=== PATIENT | female | born 1965 | race Caucasian/White ===

== ENCOUNTER → 2016-02-28 | Outpatient (CLI) | payer OTHER ==
--- NOTE | 2016-02-28 08:16 | MR ---
EXAMINATION TYPE: MR shoulder RT wo con DATE OF EXAM: 02/28/2016 7:46 AM COMPARISON: 04 January 2016 plain film HISTORY: Rt. Shoulder pain, injury TECHNIQUE: Multiplanar, multisequence imaging of the right shoulder is performed without contrast. FINDINGS: Rotator Cuff: Abnormal increased signal is present within the rotator cuff without alyssa tear, findin gs compatible with tendinosis. Acromioclavicular Joint: Hypertrophic changes present causing mass effect on the musculotendinous julissa ction of supraspinatus, some fluid signal present in the subacromial subdeltoid bursa. There is a dis gabby acromial spur. Glenohumeral Joint: Intact. Labrum: The labrum appears grossly intact given limitation of non-arthrogram study. Biceps Tendon: The long head of biceps is in normal location within bicipital groove. Small amount of fluid present along the long head of biceps tendon. Bone marrow signal: No focal abnormal marrow signal is appreciated. Other: No additional significant abnormality is appreciated. IMPRESSION: Correlate for impingement. No alyssa rotator cuff tear is present. Findings compatible with tendinosis of the rotator cuff tendon.
== END | disposition home or self-care (01) ==
LOC: RADMRIMAIN 07:09
PROVIDERS: ATTEND Emergency Medicine
DX: S40.011D Contusion of right shoulder, subsequent encounter (principal)

== ENCOUNTER → 2016-06-21 | Outpatient (CLI) | payer MEDICAID ==
--- NOTE | 2016-06-22 23:33 | MR ---
EXAMINATION TYPE: MR wrist RT wo con DATE OF EXAM: 06/21/2016 4:27 PM COMPARISON: Outside radiographs 06/12/2016 HISTORY: 51-year-old female with right wrist pain, swelling x 2 weeks status post fall TECHNIQUE: Multiplanar, multisequence images of the right wrist were obtained without IV contrast. FINDINGS: No significant wrist joint effusion. No abnormal widening of the scapholunate interval. There is heterogeneous signal within the dorsal sc apholunate ligament suggesting sprain without tear. There is focal increased fluid signal involving the marrow of the proximal scaphoid pole but also at the distal pole at the scaphoid trapezial articulation. At the proximal pole, some portions show fair ly low T1-weighted signal intensity. No discrete fracture line is seen. Underlying degenerative change at the first CMC joint with subchondral cystic change. In addition, there is focal bone marrow edema involving the lateral radial metaphysis, again, without any focal fracture line. There is adjacent soft tissue swelling and suspected split tear of the abdu ctor pollicis longus at the level of the carpus with thin internal 7 x 5 mm ganglion cyst formation. The lunotriquetral ligament is intact. A focal 5 mm intraosseous ganglion incidentally noted within the fourth metacarpal head and also with in the first metacarpal neck. There is no evidence for bony erosions. There is a short segment split tear within the extensor carpi ulnaris as it just beyond the level of the ulnar styloid process best seen on series 501, image 5 and 6. Mild tenosynovial fluid is seen david ng the second extensor compartment. The flexor and extensor tendons otherwise appear within normal li mits. Median nerve is normal caliber. The triangular fibrocartilage remains intact. Distal radioulnar joint is intact. Negative ulnar varia nce as seen on outside radiographs. Mild diffuse soft tissue swelling at the wrist, again, greatest along the radial aspect. The visualized musculature appears within normal limits. IMPRESSION: 1. Prominent bone bruise lateral aspect of the radial metaphysis with moderate adjacent soft tissue c ontusion. 2. Suspect a concurrent injury to the overlying APL with a short segment split tear at the level of t he carpus and associated 7 mm intratendinous ganglion cyst formation. 3. Increased signal at the distal scaphoid pole probably reactive to underlying triscaphe joint osteo arthrosis. There is also focal edema at the proximal scaphoid pole. Given the degree of low T1 signal here, consider MRI and radiographic follow-up to exclude the possibility of developing AVN due to se odilon bone bruise. No discrete fracture line is seen. 4. Low-grade sprain versus chronic injury of the dorsal scapholunate ligament. No tear. 5. Longitudinal split of the ECU, mild osteoarthritic changes at the base of the thumb, and mild diff use soft tissue swelling.
== END | disposition home or self-care (01) ==
LOC: RADMRIMAIN 15:18
PROVIDERS: ATTEND Orthopaedic Surgery
DX: S60.211A Contusion of right wrist, initial encounter (principal); M19.031 Primary osteoarthritis, right wrist; M79.89 Other specified soft tissue disorders; Z97.8 Presence of other specified devices

== ENCOUNTER → 2016-07-04 | Outpatient (CLI) | payer MEDICAID ==
--- NOTE | 2016-07-04 22:29 | MR ---
EXAMINATION TYPE: MR janey/hollyine/loan wo con DATE OF EXAM: 07/04/2016 COMPARISON: 09/13/2009 HISTORY: Chronic neck and back pain x 4 years, recent fall June 2016 CONTRAST: Performed utilizing 0 mL intravenous MultiHance gadolinium contrast. TECHNIQUE: Multiplanar multiecho imaging on a 3.0 Jessica magnet is performed through the cervical spin e. FINDINGS: The craniovertebral junction is normal. Vertebral body alignment is normal. C7-T1: No focal disc herniation or significant disc bulge is evident. No spinal canal stenosis or n eural foraminal stenosis is present. C6-7: Mild disc bulge has mild anterior thecal sac compression. No AP spinal canal stenosis or cord c ontact is evident. Neural foramen are patent.. C5-6: Mild disc bulging is anterior thecal sac flattening. No cord contact is evident. No spinal herlinda l stenosis present. Mild foraminal narrowing from uncovertebral joint hypertrophy is present.. C4-5: No focal disc herniation or significant disc bulge is evident. No spinal canal stenosis or lucio ral foraminal stenosis is present. C3-4: Minimal central disc bulge has anterior thecal sac compression. No spinal canal stenosis cord c ontact or neural foraminal stenosis present.. C2-3: No focal disc herniation or significant disc bulge is evident. No spinal canal stenosis or lucio ral foraminal stenosis is present. No significant interval changes evident. IMPRESSIONS: 1. Mild disc bulge C6-7 without cord contact or spinal canal stenosis. EXAMINATION TYPE: MR toth/nubia/loan wo con DATE OF EXAM: 07/04/2016 COMPARISON: 09/13/2009 HISTORY: Chronic neck and back pain x 4 years, recent fall June 2016 CONTRAST: Performed utilizing 0 mL intravenous MultiHance gadolinium contrast. TECHNIQUE: Multiplanar, multiecho imaging on a 3.0 Jessica magnet is performed through the thoracic spi ne. There is a cord syrinx present. This begins at C3-4 and extends inferiorly to the cauda equina within the lumbar spine. Cord expansion is not identified. Note is made of right paracentral endplate spurring at C6-C7 with mild anterior thecal sac compressio n. Vertebral body alignment is normal. Vertebral body heights are preserved. Disc heights are preserved. Disc hydration levels are preserved. No spinal canal stenosis is evident. IMPRESSIONS: 1. Cord syrinx extending from C3-4 through the 2. This was present previously and appears similar to 2010 thoracic spinal cord into the upper lumbar spine region. EXAMINATION TYPE: MR cspine/tspine/lspine wo con DATE OF EXAM: 07/04/2016 COMPARISON: NONE HISTORY: Chronic neck and back pain x 4 years, recent fall June 2016 CONTRAST: 0 mL intravenous MultiHance. TECHNIQUE: Multiplanar, multisequence images of the lumbar spine were acquired. FINDINGS: L5-S1: Mild disc bulging is anterior thecal sac flattening. Facet hypertrophy is present. No spinal c anal stenosis or neural foraminal stenosis is present. L4-L5: No significant disc bulge or disc herniation. No spinal canal stenosis. No foraminal stenosi s. Disc desiccation is present.. L3-L4: No significant disc bulge or disc herniation. No spinal canal stenosis. No foraminal stenosi s. Disc desiccation is present.. L2-L3: No significant disc bulge or disc herniation. No spinal canal stenosis. No foraminal stenosi s. . L1-L2: No significant disc bulge or disc herniation. No spinal canal stenosis. No foraminal stenosi s. Neural foramen are patent.. T12-L1: No significant disc bulge or disc herniation. No spinal canal stenosis. No foraminal stenos is. Small amount of syrinx may be present at this level.. Tiny amount of syrinx may be at the cauda equina. This could be the distal lumbar ventricle. Series 0 07/06/2024. IMPRESSION: 1. Syrinx extends through the thoracic spine into the upper lumbar spine. 2. Disc desiccation without loss of disc height.
== END ==
LOC: RADMRIMAIN 19:40
PROVIDERS: ATTEND Orthopaedic Surgery Orthopaedic Surgery of the Spine
DX: M51.16 Intervertebral disc disorders with radiculopathy, lumbar region (principal); D33.4 Benign neoplasm of spinal cord; M50.123 Cervical disc disorder at C6-C7 level with radiculopathy
CPT/HCPCS: 72141; 72146; 72148

== ENCOUNTER → 2016-10-20 | Outpatient (CLI) | payer MEDICAID ==
[2016-10-20 14:46] LABS: Creatine Kinase 83 U/L (30-135)
[2016-10-20 15:36] LABS: Vitamin B12 860 pg/mL (239-931)
[2016-10-20 20:40] LABS: ANA w/Reflex to Titer NEGATIVE (NEGATIVE); RNP AB Interpretation NEGATIVE (NEGATIVE)
[2016-10-24 10:44] LABS: Lyme IgG/IgM 0.1 Index; Lyme IgG/IgM Interp NEGATIVE (NEGATIVE)
== END | disposition home or self-care (01) ==
LOC: LABWHC1 13:48
PROVIDERS: ATTEND Psychiatry & Neurology Neurology
DX: M79.1 Myalgia (principal); R51 Headache; M54.5 Low back pain; M25.50 Pain in unspecified joint
CPT/HCPCS: 36415; 82306; 82550; 82607; 85652; 86038; 86225; 86235; 86618

== ENCOUNTER → 2016-11-20 | Outpatient (CLI) | payer MEDICAID ==
[2016-11-14 17:25] VITALS: BMI 32.5
[2016-11-20 12:49] VITALS: BP 117/79; PULSE 53; RESP 16; TEMP 97.6
--- NOTE | 2016-11-20 12:52 | P.HPIM ---
History of Present Illness H&P Date: 11/20/16 Chief Complaint: low back and hip pain This is a 51-year-old patient referred by Dr. Ortiz for chronic pain in low back and hips with radiation to posterior thighs bilaterally. Patient has been taking medications from primary care physician including tramadol and Zanaflex medications with some relief. Patient denies adverse drug effects from medications. Patient also denies new-onset weakness, bowel/bladder incontinence , or any other signs or symptoms of cauda equina syndrome. There are no signs of acute intoxication, and no indications of medication diversion or overuse. Patient notes that pain worsens significantly with bending forward and sitting for long periods of time and improves with change in position and medication. Patient has used several types of medications for pain, including NSAIDS, OPIOIDS, TRAMADOL, ANTIDEPRESSANTS, and BENZODIAZEPINES. Patient HAS NOT had surgery. Patient HAS NOT had injections previously. Patient HAS had physical therapy and OMT recently with little relief. In addition to above, 13-point review of systems is also negative for chest pain , shortness of breath, changes in vision, changes in hearing, new onset weakness , abdominal pain, diarrhea, extreme fatigue, malaise, fever, skin changes, homicidal or suicidal ideation, or bowel or bladder incontinence. Vital Signs: Reviewed in EMR Gen: WDWN, AAOx3, NAD HEENT: NCAT, EOMI, hearing grossly normal Pulm: resp unlabored Abd: soft, NT, ND Neck: supple, trachea midline ROM in flexion lumbar spine: full ROM in extension lumbar spine: reduced Lumbar paravertebral tenderness: + Facet loading: + L > R side SI joint tenderness: + R > L side Bon's test: + bilateral, R > L Straight leg raise: neg Neuro: CN II-XII grossly intact, muscle strength lower extremities PRESERVED Past Medical History Past Medical History: Chest Pain / Angina, Eye Disorder, GERD/Reflux, Neurologic Disorder, Osteoarthritis (OA), Sleep Apnea/CPAP/BIPAP, Thyroid Disorder Additional Past Medical History / Comment(s): migraines, seasonal allergies, ALLERGY-induced asthma,RT EPI RETINAL MEMBRANE . Peptic ulcer disease with hemorrhage, HX H.Pylori, hiatal hernia, syringomyelia, microscopic hematuria, sleep apnea, chronic back pain, internal and external hemorrhoids History of Any Multi-Drug Resistant Organisms: None Reported Past Surgical History: Adenoidectomy, Bladder Surgery, Cholecystectomy, Heart Catheterization, Hysterectomy, Orthopedic Surgery, Tonsillectomy, Tubal Ligation Additional Past Surgical History / Comment(s): REPAIR BROKEN JAW 2 PLACES, SX TO RLE FOR DOG BITE,[place]arc procedure, Pubovaginal sling, UPPP for sleep APNEA , A & P repair, laparoscopic lysis of adhesion 2, left heart catheterization 2006, EGD/colonoscopy , ORIF lt foot, shoulder sx 02/26/15, Past Anesthesia/Blood Transfusion Reactions: Previous Problems w/ Anesthesia, Motion Sickness, Postoperative Nausea & Vomiting (PONV) Additional Past Anesthesia/Blood Transfusion Reaction / Comment(s): severe N/V with anesthesia-usually even with pre op measures Past Psychological History: Anxiety, Depression Smoking Status: Former smoker Past Alcohol Use History: None Reported Additional Past Alcohol Use History / Comment(s): STARTED SMOKING AT AGE 15 SMOKED UP TO 2 PPD THEN QUIT IN 1997. Past Drug Use History: None Reported - Past Family History Father Family Medical History: Cancer, Myocardial Infarction ([place]) Additional Family Medical History / Comment(s): AGE 78, KIDNEY CA Mother Family Medical History: Asthma, COPD, Eye Disorder, Fibromyalgia, GERD/Reflux Additional Family Medical History / Comment(s): AT AGE 1975- RESP FAILURE( PAST HEAVY SMOKER) Sister(s) Family Medical History: Hypertension Brother(s) Family Medical History: No Reported History Daughter(s) Family Medical History: No Reported History Son(s) Family Medical History: No Reported History Medications and Allergies Home Medications Medication Instructions Recorded Confirmed Type FLUoxetine HCL [PROzac] 80 mg PO HS 10/16/13 11/20/16 History Melatonin 30 mg PO HS 02/09/15 11/20/16 History Magnesium Gluconate [Magonate] 500 mg PO DAILY 01/04/16 11/20/16 History clonazePAM [KlonoPIN] 1 mg PO HS 01/04/16 11/20/16 History traMADol HCL [Ultram] 50 mg PO HS PRN 01/04/16 11/20/16 History Aspirin/Acetaminophen/Caffeine 2 tab PO DAILY PRN 11/14/16 11/20/16 History [Excedrin Migraine Caplet] Baclofen [Lioresal] 20 mg PO HS 11/14/16 11/20/16 History Butalb/APAP/Caff 50-325-40Mg 2 tab PO Q4H PRN 11/14/16 11/20/16 History [Fioricet 50-325-40] Cholecalciferol [Vitamin D3] 5,000 unit PO DAILY 11/14/16 11/20/16 History Fluticasone Propionate [Flovent 2 puff INHALATION BID PRN 11/14/16 11/20/16 History Hfa 110mcg] Levothyroxine Sodium 25 mcg PO QAM 11/14/16 11/20/16 History Naproxen Sodium [Aleve] 440 mg PO DAILY PRN 11/14/16 11/20/16 History tiZANidine [Zanaflex] 8 mg PO HS 11/14/16 11/20/16 History Allergies Allergy/AdvReac Type Severity Reaction Status Date / Time codeine Allergy Severe Nausea & Verified 11/20/16 12:27 Vomiting gluten Allergy Severe Nausea & Verified 11/20/16 12:27 Vomiting & Diarrhea hydrocodone bitartrate Allergy Severe Nausea & Verified 11/20/16 12:27 [From Mckenzie] Vomiting levofloxacin [From Levaquin] Allergy Severe Nausea & Verified 11/20/16 12:27 Vomiting hydromorphone HCl Allergy seizures Verified 11/20/16 12:27 [From Dilaudid] morphine Allergy Rash/Hives Verified 11/20/16 12:27 tree nut [Tree Nut] Allergy Dyspnea Verified 11/20/16 12:27 alcohol AdvReac MIGRAINES, Verified 11/20/16 12:27 N/V, SOB Results Comments: MRI cervical thoracic and lumbar spine demonstrates a multilevel syrinx from the C3-C4 level down to the cauda equina. There is a small disc herniation at the C6-C7 level with mild anterior thecal sac compression. There are some mild thoracic disc herniations. There is mild disc bulge with anterior thecal sac flattening at the L5-S1 level and facet hypertrophy at this level. Assessment and Plan (1) Syrinx of spinal cord Status: Chronic (2) SI (sacroiliac) joint dysfunction Status: Chronic (3) Chronic pain syndrome Status: Chronic Plan: 1. Explanation: Opioid and psychological risk scores were reviewed. Diagnoses , prognoses, and multiple treatment options including but not limited to physical therapy, interventional therapies, adjuvant medical therapies, narcotic medication therapies, and surgery were discussed with the patient and all questions were answered to the patient's satisfaction. 2. Opioid agreement: no opioids prescribed today 3. Counseling: The patient was counseled extensively on BODY MASS INDEX, EXERCISE. Specifically, the patient was instructed regarding the importance of weight control, and exercise in the context of both chronic pain and overall health. 4. Procedures: SIJ injection bilateral 5. Consultations: none 6. Investigations: none 7. Medications: none prescribed 8. Disposition: f/u for procedure as scheduled PQRS measures: 1-Patient's medications are documented in the chart. 2-Tobacco use is negative 3-Patient has not had a pneumococcal vaccine. 4-Advanced care planning discussed, patient unable to give. 5-Opioid contract NOT signed with the patient. 6-Pain positive, follow-up visit or procedure scheduled 7-Patient's blood pressure measured and documented, and WNL. 8-Patient's weight was measured, and body mass index ABOVE the normal limits, and counseling was done. Patient instructed to follow up with PCP. 9-Patient WAS NOT identified as an unhealthy alcohol user. Time with Patient: Greater than 30
== END | disposition home or self-care (01) ==
LOC: PNWHC3 12:04
PROVIDERS: ATTEND Anesthesiology
DX: M53.3 Sacrococcygeal disorders, not elsewhere classified (principal); G89.4 Chronic pain syndrome; K21.9 Gastro-esophageal reflux disease without esophagitis; M19.90 Unspecified osteoarthritis, unspecified site; Z88.5 Allergy status to narcotic agent; Z88.1 Allergy status to other antibiotic agents; Z91.018 Allergy to other foods; Z79.899 Other long term (current) drug therapy; Z87.891 Personal history of nicotine dependence
CPT/HCPCS: 99211

== ENCOUNTER 2016-11-21 06:17 | Day surgery (SDC) | payer MEDICAID ==
[2016-11-21 06:32] VITALS: TEMP 97.7
[2016-11-21] MEDS ORDERED: LACTATED RINGERS 1,000 ML IV ONE (06:44)
[2016-11-21] MEDS ORDERED: LIDOCAINE 1% 20 ML VIAL (10MG/ML) FOR IV START INTRADERMA ONE (06:45)
[2016-11-21] MEDS ORDERED: LACTATED RINGERS 1,000 ML IV SCH (07:15)
--- NOTE | 2016-11-21 07:32 | P.PCN ---
Date of Procedure: 11/21/16 Surgeon: Genaro Grider Pathology: none sent Condition: stable Disposition: PACU Description of Procedure: PREOPERATIVE DIAGNOSIS: 1-SIJ dysfunction 2 Lumbar DDD POSTOPERATIVE DIAGNOSIS:. same PROCEDURES: Bilateral Sacroiliac joint steroid injection with fluoroscopic guidance ANESTHESIA: Local with 1% lidocaine; conscious sedation EBL: Minimal. PROCEDURE INDICATIONS: This patient with a history of low back pain secondary to sacroiliitis, SIJ dysfunction, and lumbar DDD unresponsive to conservative management. No use of blood thinners. SIJ injection #1 today. PROCEDURE DESCRIPTION: The patient was seen and identified in the preoperative area. Risks, benefits, complications, and alternatives were discussed with the patient (including but not limited to incomplete pain relief, bleeding, infection, nerve damage, and allergies to medications), the patient agreed to proceed with the procedure and signed the consent after all questions were answered. Patient was taken to the OR and time out was completed to verify proper patient , position, laterality of pain, and allergies. Pt was placed in the prone position and a pillow was placed under the abdomen to reduce lumbar lordosis. The lumbosacral area was prepped and draped in the usual sterile fashion. Critical pause was taken. Vital signs were closely monitored during the procedure. The fluoroscopic camera was placed in contralateral oblique view and right sacroiliiac joint lower pole was identified. After local infiltration with 1% lidocaine 2 ml, Subsequently, a 22-gauge 3.5 inch spinal needle was introduced into the posteroinferior aspect of the right sacroiliac joint under direct fluoroscopic visualization. Subsequently, 3 ml of a solution of a total of 6 ml solution containing total 4 mL of 0.5% preservative-free bupivicaine mixed with 40 mg of Kenalog was injected after negative aspiration for CSF, blood, and air and negative for paresthesia. The entire procedure was repeated on the left side as above. Needle was withdrawn intact. Skin was cleansed, and bandages were applied. COMPLICATIONS: None. COMMENTS: DISPOSITION / PLANS: The patient was placed in a supine position and transferred to the recovery area in a stable condition for observation and was discharged from the recovery room after meeting discharge criteria. Home discharge instructions given to the patient by the staff. The patient was reexamined prior to discharge. The patient will schedule a repeat bilateral SIJ injection procedure in 2-4 weeks.
[2016-11-21 07:45] VITALS: RESP 20
[2016-11-21 08:07] VITALS: BP 114/65; PULSE 44
[2016-11-21] MEDS ORDERED: IV FLUID CONTINUATION 1,000 ML IV ONE (08:07)
--- NOTE | 2016-11-21 08:32 | FL ---
Fluoroscopy HISTORY: Pain 6 seconds fluoroscopy time supplied to the referring clinician. 4 intraoperative C-arm images docume nt the procedure. See dictated report from anesthesia.
== END 2016-11-21 08:17 | disposition home or self-care (01) ==
LOC: ORPAIN 06:17
PROVIDERS: ATTEND Anesthesiology
DX: G89.4 Chronic pain syndrome (principal); M53.3 Sacrococcygeal disorders, not elsewhere classified; M51.36 Other intervertebral disc degeneration, lumbar region; M46.1 Sacroiliitis, not elsewhere classified; K21.9 Gastro-esophageal reflux disease without esophagitis; M19.90 Unspecified osteoarthritis, unspecified site; G47.30 Sleep apnea, unspecified; E07.9 Disorder of thyroid, unspecified; G43.909 Migraine, unspecified, not intractable, without status migrainosus; F41.9 Anxiety disorder, unspecified; F32.9 Major depressive disorder, single episode, unspecified; Z87.891 Personal history of nicotine dependence; Z79.899 Other long term (current) drug therapy; Z88.1 Allergy status to other antibiotic agents; Z88.5 Allergy status to narcotic agent; Z91.018 Allergy to other foods
CPT/HCPCS: 27096; J2250; J3301; Q9965; J3010; 99152

== ENCOUNTER 2016-12-19 06:34 | Day surgery (SDC) | payer MEDICAID ==
[2016-12-14 12:12] VITALS: BMI 32.0
[~2016-12-19 06:34] MED LIST: LACTATED RINGERS 1,000 ML IV SCH
[2016-12-19 06:50] VITALS: TEMP 98
[2016-12-19] MEDS ORDERED: ONDANSETRON 4 MG/2 ML VIAL IVP ONE (06:51)
--- NOTE | 2016-12-19 07:25 | P.PCN ---
Date of Procedure: 12/19/16 Procedure(s) Performed: Preoperative diagnoses= 1-lumbar degenerative disc disease 2-bilateral sacroiliac joint dysfunction. 3-lumbar facet arthropathy Postoperative diagnoses= same as preoperative diagnosis. Procedure= bilateral sacroiliac joint steroid injection under fluoroscopic guidance. Anesthesia= conscious sedation with Versed 2 mg and fentanyl 100 micrograms and local infiltration with lidocaine 1% 4 ml Estimated blood loss=minimal. Procedure indication= the patient had a history of severe chronic low back pain , diagnosed with sacroiliac joint dysfunction ,and lumbar sacral facet arthropathy ,unresponsive to conservative treatment. Procedure description= the patient was seen and identified in the preoperative holding area, risks and benefits and alternative of the procedure and possible complications discussed with the patient, and he agreed with the preceding, patient signed the consent, an IV was started, and vital signs were monitored and were stable throughout the procedure, patient was placed in the prone position or table and the lumbosacral area was prepped and draped with a sterile fashion, vital signs were closely monitored during the procedure, the fluoroscopy camera was placed in the contralateral oblique view on the right sacroiliac joint and the lower part of the joint was identified, local infiltration of the skin and subcutaneous tissue with lidocaine 1% 2 mL then a 22-gauge Quincke-type spinal needle advanced slowly under fluoroscopy and placed in the posterior and inferior border of the right sacroiliac joint, placement confirmed with AP and lateral view, and after appropriate needle placement confirmed and after negative aspiration for heme and CSF and there was no paresthesia during the injection, 3 ml of Marcaine 0.5% and 40 mg of Kenalog injected after negative aspiration, the needle removed, and the entire same procedure was repeated for the left sacroiliac joint Patient tolerated the procedure well without any complication, The patient returned to supine position after the back was cleaned and a Band- Aid applied, the patient transported to recovery room in stable condition and he was monitored for 30 minutes before he was discharged home and then patient was reexamined before going home and patient was discharged in stable condition and patient will follow up with the pain clinic in a few weeks
[2016-12-19 07:58] VITALS: BP 120/72; PULSE 43; RESP 20
[2016-12-19] MEDS ORDERED: IV FLUID CONTINUATION 1,000 ML IV ONE (08:01)
--- NOTE | 2016-12-19 08:20 | FL ---
Fluoroscopy HISTORY: Pain 3 seconds fluoroscopy time supplied to the referring clinician. 2 intraoperative C-arm images docume nt the procedure. See dictated report from anesthesia.
== END 2016-12-19 08:06 | disposition home or self-care (01) ==
LOC: ORPAIN 06:34
DX: G89.29 Other chronic pain (principal); M51.36 Other intervertebral disc degeneration, lumbar region; M53.3 Sacrococcygeal disorders, not elsewhere classified; M46.96 Unspecified inflammatory spondylopathy, lumbar region; M46.1 Sacroiliitis, not elsewhere classified; K21.9 Gastro-esophageal reflux disease without esophagitis; Z88.8 Allergy status to other drugs, medicaments and biological substances; Z88.5 Allergy status to narcotic agent; Z91.018 Allergy to other foods; Z79.2 Long term (current) use of antibiotics; Z79.899 Other long term (current) drug therapy
CPT/HCPCS: 27096; J2250; J3301; J2405; J3010; 99152

== ENCOUNTER 2017-02-20 07:30 | Day surgery (SDC) | payer MEDICAID ==
[2017-02-13 12:38] VITALS: BMI 32.1
[2017-02-20] MEDS ORDERED: LIDOCAINE 1% 20 ML VIAL (10MG/ML) FOR IV START INTRADERMA ONE (07:33)
[2017-02-20 07:39] VITALS: RESP 16; TEMP 97.7
[2017-02-20] MEDS ORDERED: LACTATED RINGERS 1,000 ML IV ONE (07:42)
[2017-02-20] MEDS ORDERED: ONDANSETRON 4 MG/2 ML VIAL IVP ONE (08:08)
[2017-02-20] MEDS ORDERED: ONDANSETRON 4 MG/2 ML VIAL IVP STA (08:14)
[2017-02-20] MEDS ORDERED: LACTATED RINGERS 1,000 ML IV SCH (08:15)
[2017-02-20] MEDS ORDERED: KETOROLAC 30 MG/ML 1 ML VIAL IVP STA (08:40)
--- NOTE | 2017-02-20 08:44 | P.PCN ---
Date of Procedure: 02/20/17 Surgeon: Genaro Grider Pathology: none sent Condition: stable Disposition: PACU Description of Procedure: PREOPERATIVE DIAGNOSIS: Sacroiliitis; lumbar spondylosis without myelopathy POSTOPERATIVE DIAGNOSIS: Sacroiliitis; lumbar spondylosis without myelopathy PROCEDURE: Radiofrequency thermocoagulation/ablation of the Medial branch of L5 and S1, S2, S3 lateral branch levels under fluoroscopic guidance, left ANESTHESIA: Local with 1% lidocaine; IV sedation with Versed/fentanyl EBL: Minimal PROCEDURE INDICATION: The patient with low back pain secondary to sacroilitis with marked decrease in pain with prior sacroiliac joint injections, presents for L SI RFA today. No use of blood thinners. PROCEDURE DESCRIPTION: The patient was seen and identified in the preoperative area. Risks, benefits, complications, and alternatives were discussed with the patient, with risks including but not limited to bleeding, infection, nerve damage, incomplete pain relief, and allergic reactions to medications. The patient agreed to proceed with the procedure and signed the informed consent after all questions were answered. IV was started. Vital signs were stable throughout the procedure. Patient was taken to the OR and time out was completed.The patient was placed in the prone position on procedure table and a pillow was placed under the abdomen to reduce lumbar lordosis. The lumbosacral area was prepped and draped in the usual sterile fashion. Critical pause was taken. Vital signs were closely monitored during the procedure. L5 Medial Branch: Using left oblique fluoroscopy, the junction of the transverse process and the superior articular process of the top of the sacrum on the right side, which correspond to the fluoroscopic image of the "eye of the Elvis dog" was identified. Skin and deeper tissues were localized with 1% lidocaine at the identified level. Then using fluoroscopy, a 10-cm 20-gauge radiofrequency cannula with a 10-mm active tip was was advanced under fluoroscopic guidance until contact was made with periosteum. At this level, the Sensory testing of L5 Medial branch was performed at 50 Hz and 0 to 1 volt with production of concordant pain. Motor stimulation was done at 2 Hz with stimulation of multifidus muscle contraction at (0.1-2.5) volts. No radicular symptoms or paresthesias were produced during the testing. Subsequently, the L5 medial branch was subjected to a radiofrequency ablation at a mode of 90 seconds at 80 degrees Celsius after negative motor and sensory testing as indicated and after injecting 0.5 ml of preservative free Lidocaine 1%. Then after the radiofrequency procedure was done, 1 mL of a solution containing 4 mL of 0.5% preservative-free lidocaine mixed with 40 mg of Kenalog. S1, S2, and S3 Medial branches: Using the oblique position, the left sacroiliac joint was identified. Skin and deeper tissues corresponding to the site were anesthetized with 1% lidocaine. Under fluoroscopic guidance, a total of three 10-cm 18-gauge radiofrequency cannula with 10-mm active tips were advanced to the lateral aspects of the S1, S2, and S3 vertebral foramina. Subsequently, sensory and motor testings were performed at a total of 3 segments at 50 Hz and 2 Hz respectively which produced concordant pain without radiculopathy or paresthesia. Then each segment was subjected to radiofrequency ablation at a mode of 90 seconds at 80 degrees Celsius for a total of 3 lesions with the bipolar technique. Then after the radiofrequency procedure was done, each site was injected with 1 mL of the aforementioned solution containing 4 mL of 0.5% preservative-free lidocaine mixed with 40 mg of Kenalog. The needles were withdrawn. Area was cleaned. Band-Aid was applied. COMPLICATIONS: None. COMMENTS: DISPOSITION / PLANS: The patient was placed in a supine position and transferred to the recovery area in a stable condition for observation and was discharged from the recovery room after meeting discharge criteria. Home discharge instructions given to the patient by the staff. The patient was reexamined prior to discharge. The patient will schedule a right SI RFA in 4-6 weeks.
[2017-02-20] MEDS ORDERED: IV FLUID CONTINUATION 1,000 ML IV ONE (08:49)
[2017-02-20 09:16] VITALS: BP 119/70; PULSE 51
--- NOTE | 2017-02-20 12:58 | FL ---
Fluoroscopy HISTORY: Pain 18 seconds fluoroscopy time supplied to the referring clinician. 2 intraoperative C-arm images docum ent the procedure. See dictated report from anesthesia.
== END 2017-02-20 09:38 | disposition home or self-care (01) ==
LOC: ORPAIN 07:30
PROVIDERS: ATTEND Anesthesiology
DX: M46.1 Sacroiliitis, not elsewhere classified (principal); M47.816 Spondylosis without myelopathy or radiculopathy, lumbar region; Z88.6 Allergy status to analgesic agent; Z91.02 Food additives allergy status; Z88.5 Allergy status to narcotic agent; Z91.018 Allergy to other foods; Z91.09 Other allergy status, other than to drugs and biological substances
CPT/HCPCS: 64640 ×3; 64635; J2250; J3301; J2405; J3010; 99152

== ENCOUNTER → 2017-03-01 | Outpatient (CLI) | payer MEDICAID ==
[2017-03-01 08:58] LABS: ALT 22 U/L (9-52); AST 15 U/L (14-36); Albumin 4.1 g/dL (3.5-5.0); Alkaline Phosphatase 72 U/L (38-126); Anion Gap 9 mmol/L; Blood Urea Nitrogen 20 mg/dL (7-17); Calcium 9.8 mg/dL (8.4-10.2); Carbon Dioxide 25 mmol/L (22-30); Chloride 107 mmol/L (98-107); Cholesterol 207 mg/dL (<200); Glucose 85 mg/dL (74-99); HDL Cholesterol 91 mg/dL (40-60); LDL Cholesterol,Calculated 105 mg/dL (0-99); Potassium 4.7 mmol/L (3.5-5.1); Sodium 141 mmol/L (137-145); Total Bilirubin 0.4 mg/dL (0.2-1.3); Total Protein 6.5 g/dL (6.3-8.2); Triglycerides 53 mg/dL (<150)
[2017-03-01 09:12] LABS: Basophils % (A) 0 %; Eosinophils # (A) 0.1 k/uL (0-0.7); Eosinophils % (A) 1 %; HCT 43.7 % (34.0-46.0); HGB 14.3 gm/dL (11.4-16.0); Lymphocytes # (A) 1.5 k/uL (1.0-4.8); Lymphocytes % (A) 22 %; MCH 27.6 pg (25.0-35.0); MCHC 32.8 g/dL (31.0-37.0); MCV 84.3 fL (80.0-100.0); Mean Platelet Volume 6.4; Monocytes # (A) 0.4 k/uL (0-1.0); Monocytes % (A) 7 %; Neutrophils # (A) 4.6 k/uL (1.3-7.7); Neutrophils % (A) 68 %; Platelet Count 316 k/uL (150-450); RBC 5.18 m/uL (3.80-5.40); RDW 13.4 % (11.5-15.5); WBC 6.7 k/uL (3.8-10.6)
[2017-03-01 09:13] LABS: T4, Free (Free Thyroxine) 1.16 ng/dL (0.78-2.19)
== END | disposition home or self-care (01) ==
LOC: LABWHC1 07:59
PROVIDERS: ATTEND Family Medicine
DX: R07.89 Other chest pain (principal); E03.9 Hypothyroidism, unspecified
CPT/HCPCS: 36415; 80053; 80061; 83735; 84439; 84443; 85025

== ENCOUNTER → 2017-03-08 | Outpatient (CLI) | payer MEDICAID ==
[~2017-03-08] MED LIST changes: -LACTATED RINGERS 1,000 ML IV SCH; +REGADENOSON 0.4 MG/5 ML SYRINGE IV ONE
--- NOTE | 2017-03-08 10:40 | EST ---
EXERCISE STRESS DATE OF SERVICE: 03/08/2017 AGE: 51 SEX: Female HT: 5'1" WT: 168 pounds PROTOCOL: Lexiscan Cardiolite STAGE: DURATION OF EXERCISE: HEART RATE REST: 53 BLOOD PRESSURE REST: 104/73 MAXIMUM HEART RATE ACHIEVED: 89 MAXIMUM BLOOD PRESSURE: 130/72 85% MPHR: 144 100% MPHR: 169 METS: INDICATION OF THE STUDY: Chest pain. CLINICAL INFORMATION: STRESS DATA: Pretesting physical examination showed a heart rate of 53, pressure is 104/73 mmHg. Baseline EKG showed sinus rhythm. A 0.4 mg of Lexiscan was given to the patient over 15 seconds per protocol. The max heart rate was 89 beats per minute and maximum pressure was 130/72 mmHg. Clinically the patient did not have any symptoms of chest pain, but she did develop shortness of breath. The EKG did not show any significant ST or T-wave abnormalities consistent with ischemia. CONCLUSION: 1. Nondiagnostic electrocardiogram stress testing in response to Lexiscan. 2. Please follow up on the Cardiolite portion on separate report from the radiology department. MMODL / IJN: [id number] /
--- NOTE | 2017-03-08 12:12 | NM ---
EXAMINATION TYPE: NM stress lexiscan cardiolite DATE OF EXAM: 03/08/2017 COMPARISON: NONE HISTORY: Atypical chest pain, R07.89 TECHNIQUE: After the intravenous administration of 10.7 mCi Tc 99m Sestamibi - Cardiolite resting SP ECT images acquired 45 minutes post injection. The patient received 0.4mg Lexiscan, 27.3 mCi Tc 99m Sestamibi - Stress images obtained [address] injection FINDINGS: Gut activity is noted on the exam. Review of stress and rest SPECT images demonstrates suggestion of some mild decreased radiopharmaceut ical uptake on stress as compared to rest images along the anterior wall of the left ventricle extend ing towards the apex. Gated analysis shows normal wall motion with an estimated left ventricular eje ction fraction of 69 %. IMPRESSION: Elevated cardiac ejection fraction. Consider echocardiographic correlation. Difficult to exclude phar macologically induced left ventricular myocardial ischemia as described. A Yellow message has been communicated to Jean Monsivais via the [employer] Critical Result system on 03/08/2017 12:09 PM, Message ID [id number].
== END | disposition home or self-care (01) ==
LOC: RADNMMAIN 08:16
PROVIDERS: ATTEND Family Medicine
DX: R07.89 Other chest pain (principal)
CPT/HCPCS: 93017; 78452; A9500; J2785

== ENCOUNTER 2017-03-13 12:20 | Observation (INO) | payer MEDICAID ==
[2017-03-13] MEDS ORDERED: ASPIRIN 81 MG PO STA (12:51)
[2017-03-13] MEDS ORDERED: NITROGLYCERIN SL TABS 0.4 MG TAB SUBLINGUAL STA ×3 (12:51)
--- NOTE | 2017-03-13 12:55 | ED ---
General Adult HPI - General Chief complaint: Chest Pain Stated complaint: SOB, Tightness in Chest Time Seen by Provider: 03/13/17 12:46 Source: patient, RN notes reviewed Mode of arrival: wheelchair Limitations: no limitations - History of Present Illness Initial comments: Patient is a pleasant 81-year-old female presenting to the emergency Department with chest discomfort. Patient has had symptoms frequently over the past month. Patient did have a outpatient stress test done last week reported as abnormal. Patient has an appointment to see cardiology today. Patient states discomfort has worsened today. Discomfort is somewhat improved at this time and is rated 4-5/10. Discomfort feels like tightness underneath the left breast. There is some radiation towards the shoulder. Patient does have associated dyspnea. Symptoms are exertional. No associated nausea. Patient was a little bit sweaty yesterday. No leg pain or leg swelling. No fever. - Related Data Home Medications Medication Instructions Recorded Confirmed FLUoxetine HCL [PROzac] 80 mg PO HS 10/16/13 03/13/17 Melatonin 30 mg PO HS 02/09/15 03/13/17 Magnesium Gluconate [Magonate] 500 mg PO HS 01/04/16 03/13/17 clonazePAM [KlonoPIN] 1 mg PO HS 01/04/16 03/13/17 traMADol HCL [Ultram] 50 mg PO HS PRN 01/04/16 03/13/17 Aspirin/Acetaminophen/Caffeine 2 tab PO DAILY PRN 11/14/16 03/13/17 [Excedrin Migraine Caplet] Baclofen [Lioresal] 20 mg PO HS 11/14/16 03/13/17 Butalb/APAP/Caff 50-325-40Mg 2 tab PO Q4H PRN 11/14/16 03/13/17 [Fioricet 50-325-40] Cholecalciferol [Vitamin D3] 5,000 unit PO HS 11/14/16 03/13/17 Fluticasone Propionate [Flovent 2 puff INHALATION RT-BID PRN 11/14/16 03/13/17 Hfa 110mcg] Levothyroxine Sodium 25 mcg PO QAM 11/14/16 03/13/17 Naproxen Sodium [Aleve] 440 mg PO DAILY PRN 11/14/16 03/13/17 tiZANidine [Zanaflex] 8 mg PO HS 11/14/16 03/13/17 Zaleplon [Zaleplon] 10 mg PO HS 02/13/17 03/13/17 Aspirin 81 mg PO DAILY 03/13/17 03/13/17 Allergies Allergy/AdvReac Type Severity Reaction Status Date / Time codeine Allergy Severe Nausea & Verified 03/13/17 13:00 Vomiting hydrocodone bitartrate Allergy Severe Nausea & Verified 03/13/17 13:00 [From [place]] Vomiting levofloxacin [From Levaquin] Allergy Severe Nausea & Verified 03/13/17 13:00 Vomiting hydromorphone HCl Allergy seizures Verified 03/13/17 13:00 [From Dilaudid] morphine Allergy Rash/Hives Verified 03/13/17 13:00 alcohol AdvReac MIGRAINES, Verified 03/13/17 13:00 N/V, SOB ibuprofen [From Motrin] AdvReac ABD PAIN, Verified 03/13/17 13:00 ELEVATED LIVER ENZYMES Review of Systems ROS Statement: Those systems with pertinent positive or pertinent negative responses have been documented in the HPI. ROS Other: All systems not noted in ROS Statement are negative. Constitutional: Denies: fever Eyes: Denies: eye pain ENT: Denies: ear pain Respiratory: Reports: dyspnea. Denies: cough Cardiovascular: Reports: chest pain Endocrine: Denies: heat or cold intolerance Gastrointestinal: Denies: abdominal pain Genitourinary: Denies: dysuria Musculoskeletal: Denies: back pain Skin: Denies: rash Neurological: Denies: weakness Past Medical History Past Medical History: Eye Disorder, GERD/Reflux, Neurologic Disorder, Osteoarthritis (OA), Sleep Apnea/CPAP/BIPAP, Thyroid Disorder Additional Past Medical History / Comment(s): migraines, seasonal allergies, ALLERGY-induced asthma,RT EPI RETINAL MEMBRANE . Peptic ulcer disease with hemorrhage, HX H.Pylori, hiatal hernia, syringomyelia, sleep apnea, chronic back pain, hemorrhoids History of Any Multi-Drug Resistant Organisms: None Reported Past Surgical History: Adenoidectomy, Bladder Surgery, Cholecystectomy, Heart Catheterization, Hysterectomy, Orthopedic Surgery, Tonsillectomy, Tubal Ligation Additional Past Surgical History / Comment(s): Monarc procedure, Pubovaginal sling, UPPP for sleep apnea , A & P repair, laparoscopic lysis of adhesion 2, left heart catheterization 2006, EGD/colonoscopy last one 02/12/15, ORIF lt foot, lt shoulder sx 02/26/15, pain clinic injections, RSA lower back Past Anesthesia/Blood Transfusion Reactions: Previous Problems w/ Anesthesia, Motion Sickness, Postoperative Nausea & Vomiting (PONV) Additional Past Anesthesia/Blood Transfusion Reaction / Comment(s): severe N/V with anesthesia-usually even with pre op measures Past Psychological History: Anxiety, Depression Smoking Status: Former smoker Past Alcohol Use History: None Reported Past Drug Use History: None Reported - Past Family History Father Family Medical History: Cancer, Myocardial Infarction ([place]) Additional Family Medical History / Comment(s): AGE 78, KIDNEY CA Mother Family Medical History: Asthma, COPD, Eye Disorder, Fibromyalgia, GERD/Reflux Additional Family Medical History / Comment(s): AT AGE 1975- RESP FAILURE( PAST HEAVY SMOKER) Sister(s) Family Medical History: Hypertension Brother(s) Family Medical History: No Reported History Daughter(s) Family Medical History: Cancer Additional Family Medical History / Comment(s): cervical Son(s) Family Medical History: No Reported History General Exam Limitations: no limitations General appearance: alert, in no apparent distress Head exam: Present: atraumatic Eye exam: Present: normal appearance, PERRL ENT exam: Present: normal oropharynx Neck exam: Present: normal inspection Respiratory exam: Present: normal lung sounds bilaterally. Absent: chest wall tenderness Cardiovascular Exam: Present: regular rate, normal rhythm Expanded Peripheral pulses: 2+: Radial (R), Radial (L), Dorsalis Pedis (R), Dorsalis Pedis (L) GI/Abdominal exam: Present: soft. Absent: tenderness Extremities exam: Present: normal inspection. Absent: pedal edema, calf tenderness Neurological exam: Present: alert Psychiatric exam: Present: normal affect, normal mood Skin exam: Present: normal color Course Vital Signs 03/13/17 03/13/17 03/13/17 12:21 13:20 13:30 Temperature 96.7 F L Pulse Rate 57 L Respiratory 18 18 Rate Blood Pressure 135/76 124/64 124/80 O2 Sat by Pulse 100 Oximetry EKG Findings - EKG Comments: EKG Findings:: Sinus bradycardia 53. CA 158. QRS 74. QT 432. QTC 405. Normal axis. Normal QRS. Nonspecific ST-T. Medical Decision Making - Medical Decision Making Patient reevaluated and resting comfortably in bed. Patient is updated on results and plan. Case was discussed in detail with Dr. Gonsales, who will admit for Dr. Soto. - Lab Data Result diagrams: 03/13/17 12:52 03/13/17 12:52 Lab Results 03/13/17 03/13/17 03/13/17 Range/Units 12:52 12:52 12:52 WBC 6.2 (3.8-10.6) k/uL RBC 5.05 (3.80-5.40) m/uL Hgb 14.4 (11.4-16.0) gm/dL Hct 43.6 (34.0-46.0) % MCV 86.3 (80.0-100.0) fL MCH 28.6 (25.0-35.0) pg MCHC 33.1 (31.0-37.0) g/dL RDW 13.5 (11.5-15.5) % Plt Count 264 (150-450) k/uL Neutrophils % 66 % Lymphocytes % 24 % Monocytes % 7 % Eosinophils % 1 % Basophils % 0 % Neutrophils # 4.1 (1.3-7.7) k/uL Lymphocytes # 1.5 (1.0-4.8) k/uL Monocytes # 0.4 (0-1.0) k/uL Eosinophils # 0.1 (0-0.7) k/uL Basophils # 0.0 (0-0.2) k/uL PT (9.0-12.0) sec INR (<1.2) APTT (22.0-30.0) sec D-Dimer (<0.60) mg/L FEU Sodium 141 (137-145) mmol/L Potassium 5.2 H (3.5-5.1) mmol/L Chloride 106 (98-107) mmol/L Carbon Dioxide 26 (22-30) mmol/L Anion Gap 9 mmol/L BUN 15 (7-17) mg/dL Creatinine 1.02 (0.52-1.04) mg/dL Est GFR (MDRD) Af Amer >60 (>60 ml/min/1.73 sqM) Est GFR (MDRD) Non-Af 57 (>60 ml/min/1.73 sqM) Glucose 80 (74-99) mg/dL Calcium 10.0 (8.4-10.2) mg/dL Magnesium 1.8 (1.6-2.3) mg/dL Total Bilirubin 0.4 (0.2-1.3) mg/dL AST 18 (14-36) U/L ALT 23 (9-52) U/L Alkaline Phosphatase 73 (38-126) U/L Total Creatine Kinase 44 (30-135) U/L CK-MB (CK-2) 0.4 (0.0-2.4) ng/mL CK-MB (CK-2) Rel Index 0.9 Troponin I <0.012 (0.000-0.034) ng/mL NT-Pro-B Natriuret Pep pg/mL Total Protein 6.8 (6.3-8.2) g/dL Albumin 4.4 (3.5-5.0) g/dL 03/13/17 03/13/17 Range/Units 12:52 12:52 WBC (3.8-10.6) k/uL RBC (3.80-5.40) m/uL Hgb (11.4-16.0) gm/dL Hct (34.0-46.0) % MCV (80.0-100.0) fL MCH (25.0-35.0) pg MCHC (31.0-37.0) g/dL RDW (11.5-15.5) % Plt Count (150-450) k/uL Neutrophils % % Lymphocytes % % Monocytes % % Eosinophils % % Basophils % % Neutrophils # (1.3-7.7) k/uL Lymphocytes # (1.0-4.8) k/uL Monocytes # (0-1.0) k/uL Eosinophils # (0-0.7) k/uL Basophils # (0-0.2) k/uL PT 9.8 (9.0-12.0) sec INR 1.0 (<1.2) APTT 24.1 (22.0-30.0) sec D-Dimer 0.21 (<0.60) mg/L FEU Sodium (137-145) mmol/L Potassium (3.5-5.1) mmol/L Chloride (98-107) mmol/L Carbon Dioxide (22-30) mmol/L Anion Gap mmol/L BUN (7-17) mg/dL Creatinine (0.52-1.04) mg/dL Est GFR (MDRD) Af Amer (>60 ml/min/1.73 sqM) Est GFR (MDRD) Non-Af (>60 ml/min/1.73 sqM) Glucose (74-99) mg/dL Calcium (8.4-10.2) mg/dL Magnesium (1.6-2.3) mg/dL Total Bilirubin (0.2-1.3) mg/dL AST (14-36) U/L ALT (9-52) U/L Alkaline Phosphatase (38-126) U/L Total Creatine Kinase (30-135) U/L CK-MB (CK-2) (0.0-2.4) ng/mL CK-MB (CK-2) Rel Index Troponin I (0.000-0.034) ng/mL NT-Pro-B Natriuret Pep 88 pg/mL Total Protein (6.3-8.2) g/dL Albumin (3.5-5.0) g/dL - Radiology Data Radiology results: report reviewed (Chest x-ray reported as no acute process. Films are unable to be viewed at this time secondary to computer system being down.) Critical Care Time Critical Care Time: Yes Total Critical Care Time: 31 Disposition Clinical Impression: Unstable angina pectoris Disposition: ADMITTED IP TO THIS [facility] Referrals: Caryl Soto MD [Primary Care Provider] - 1-2 days Decision Time: 14:23
[2017-03-13 13:11] LABS: Basophils % (A) 0 %; Eosinophils # (A) 0.1 k/uL (0-0.7); Eosinophils % (A) 1 %; HCT 43.6 % (34.0-46.0); HGB 14.4 gm/dL (11.4-16.0); Lymphocytes # (A) 1.5 k/uL (1.0-4.8); Lymphocytes % (A) 24 %; MCH 28.6 pg (25.0-35.0); MCHC 33.1 g/dL (31.0-37.0); MCV 86.3 fL (80.0-100.0); Mean Platelet Volume 6.1; Monocytes # (A) 0.4 k/uL (0-1.0); Monocytes % (A) 7 %; Neutrophils # (A) 4.1 k/uL (1.3-7.7); Neutrophils % (A) 66 %; Platelet Count 264 k/uL (150-450); RBC 5.05 m/uL (3.80-5.40); RDW 13.5 % (11.5-15.5); WBC 6.2 k/uL (3.8-10.6)
[2017-03-13 13:22] LABS: ALT 23 U/L (9-52); AST 18 U/L (14-36); Albumin 4.4 g/dL (3.5-5.0); Alkaline Phosphatase 73 U/L (38-126); Anion Gap 9 mmol/L; Blood Urea Nitrogen 15 mg/dL (7-17); Carbon Dioxide 26 mmol/L (22-30); Chloride 106 mmol/L (98-107); Glucose 80 mg/dL (74-99); Magnesium 1.8 mg/dL (1.6-2.3); Potassium 5.2 mmol/L (3.5-5.1); Sodium 141 mmol/L (137-145); Total Bilirubin 0.4 mg/dL (0.2-1.3); Total Protein 6.8 g/dL (6.3-8.2)
[2017-03-13 13:33] LABS: Creatine Kinase 44 U/L (30-135)
[2017-03-13 13:45] LABS: Creatine Kinase MB 0.4 ng/mL (0.0-2.4); Troponin I <0.012 ng/mL (0.000-0.034)
[2017-03-13] MEDS ORDERED: ACETAMINOPHEN TAB 325 MG TAB PO STA (13:46)
[2017-03-13 13:48] LABS: D-Dimer 0.21 mg/L FEU (<0.60); Partial Thromboplastin Time 24.1 sec (22.0-30.0); Prothrombin Time 9.8 sec (9.0-12.0)
--- NOTE | 2017-03-13 14:04 | XR ---
EXAMINATION TYPE: XR chest 2V DATE OF EXAM: 03/13/2017 COMPARISON: 01/13/17 HISTORY: Shortness of breath TECHNIQUE: Frontal and lateral views of the chest are obtained. FINDINGS: Scattered senescent parenchymal changes noted. Hyperinflation compatible with COPD. No evidence for infiltrate. No evidence for atelectasis. Heart size is stable. Mediastinal structures are stable and grossly unremarkable. No evidence for hilar prominence. Degenerative changes dorsal spine. IMPRESSION: 1. No evidence for acute pulmonary disease.
[2017-03-13] MEDS ORDERED: HEPARIN SODIUM,PORCINE 5,000 UNIT/ML 1 ML VIAL IV ONE (14:23)
[2017-03-13] MEDS ORDERED: HEPARIN SODIUM,PORCINE 5,000 UNIT/ML 1 ML VIAL IV PRN (14:23)
[2017-03-13] MEDS ORDERED: HEPARIN SOD,PORK IN 0.45% NACL 25,000 UNIT in 0.45% NACL 1 500ML.BAG IV SCH (14:30)
[2017-03-13] MEDS: NITROGLYCERIN SL TABS 0.4 MG TAB SUBLINGUAL PRN ×2 (15:06→18:19)
[2017-03-13] MEDS ORDERED: BUTALB/APAP/CAFF 50-325-40MG TAB PO PRN (15:35)
[2017-03-13] MEDS ORDERED: traMADol 50 MG TAB PO PRN (15:35)
--- NOTE | 2017-03-13 15:35 | P.HPIM ---
History of Present Illness H&P Date: 03/13/17 Chief Complaint: chest pain The patient is a 51-year-old female with a past focal history of syringomyelia, cervical, thoracic and lumbar DJD and osteopenia who is on Ultram chronically, today she presents to the ER with chief complaints of intermittent mild to moderate squeezing chest pain with occasional radiation to her left shoulder and and back. The episodes occur intermittently and are not necessarily related to exertion and can occur at rest, denies any precipiatating and relieving factors; they can be associated with shortness of air, lightheadedness and dizziness. She denies any association with shortness of breath, she denies any palpitations or lower extremity swelling. The patient is a former smoker but has not smoked for over 30 years, she reports cardiac family history with her father having an PA in his early 50s. She denies any history of high blood pressure or high cholesterol. Apparently she has had a heart catheterization in 2006 but is unaware of the results. We'll she reports to having epidural shot in her lumbar area in January and radiofrequency ablation in the middle of February. The patient had a Lexiscan stress test 03/08/17 that showed elevated cardiac ejection fraction and was equivocal to exclude any reversible ischemia. Apparently the patient's PCP Dr. Soto notified her of the stress test results on Sunday and the patient was supposed to have up appointment with cardiology today, but had recurrence of her symptoms and was instructed to take an aspirin and an come to the ER. In the ER she had admission labs EKG not suggestive of any ischemia cardiac enzymes are negative 1, she was recommended for admission for chest pain rule out and started on heparin drip in the ER. Past Medical History Past Medical History: Eye Disorder, GERD/Reflux, Neurologic Disorder, Osteoarthritis (OA), Sleep Apnea/CPAP/BIPAP, Thyroid Disorder Additional Past Medical History / Comment(s): migraines, seasonal allergies, ALLERGY-induced asthma,RT EPI RETINAL MEMBRANE . Peptic ulcer disease with hemorrhage, HX H.Pylori, hiatal hernia, syringomyelia, sleep apnea, chronic back pain, hemorrhoids History of Any Multi-Drug Resistant Organisms: None Reported Past Surgical History: Adenoidectomy, Bladder Surgery, Cholecystectomy, Heart Catheterization, Hysterectomy, Orthopedic Surgery, Tonsillectomy, Tubal Ligation Additional Past Surgical History / Comment(s): Monarc procedure, Pubovaginal sling, UPPP for sleep apnea , A & P repair, laparoscopic lysis of adhesion 2, left heart catheterization 2006, EGD/colonoscopy last one 02/12/15, ORIF lt foot, lt shoulder sx 02/26/15, pain clinic injections, RSA lower back Past Anesthesia/Blood Transfusion Reactions: Previous Problems w/ Anesthesia, Motion Sickness, Postoperative Nausea & Vomiting (PONV) Additional Past Anesthesia/Blood Transfusion Reaction / Comment(s): severe N/V with anesthesia-usually even with pre op measures Past Psychological History: Anxiety, Depression Smoking Status: Former smoker Past Alcohol Use History: None Reported Past Drug Use History: None Reported - Past Family History Father Family Medical History: Cancer, Myocardial Infarction (PA) Additional Family Medical History / Comment(s): AGE 78, KIDNEY CA Mother Family Medical History: Asthma, COPD, Eye Disorder, Fibromyalgia, GERD/Reflux Additional Family Medical History / Comment(s): AT AGE 1975- RESP FAILURE( PAST HEAVY SMOKER) Sister(s) Family Medical History: Hypertension Brother(s) Family Medical History: No Reported History Daughter(s) Family Medical History: Cancer Additional Family Medical History / Comment(s): cervical Son(s) Family Medical History: No Reported History Medications and Allergies Home Medications Medication Instructions Recorded Confirmed Type FLUoxetine HCL [PROzac] 80 mg PO HS 10/16/13 03/13/17 History Melatonin 30 mg PO HS 02/09/15 03/13/17 History Magnesium Gluconate [Magonate] 500 mg PO HS 01/04/16 03/13/17 History clonazePAM [KlonoPIN] 1 mg PO HS 01/04/16 03/13/17 History traMADol HCL [Ultram] 50 mg PO HS PRN 01/04/16 03/13/17 History Aspirin/Acetaminophen/Caffeine 2 tab PO DAILY PRN 11/14/16 03/13/17 History [Excedrin Migraine Caplet] Baclofen [Lioresal] 20 mg PO HS 11/14/16 03/13/17 History Butalb/APAP/Caff 50-325-40Mg 2 tab PO Q4H PRN 11/14/16 03/13/17 History [Fioricet 50-325-40] Cholecalciferol [Vitamin D3] 5,000 unit PO HS 11/14/16 03/13/17 History Fluticasone Propionate [Flovent 2 puff INHALATION RT-BID PRN 11/14/16 03/13/17 History Hfa 110mcg] Levothyroxine Sodium 25 mcg PO QAM 11/14/16 03/13/17 History Naproxen Sodium [Aleve] 440 mg PO DAILY PRN 11/14/16 03/13/17 History tiZANidine [Zanaflex] 8 mg PO HS 11/14/16 03/13/17 History Zaleplon [Zaleplon] 10 mg PO HS 02/13/17 03/13/17 History Aspirin 81 mg PO DAILY 03/13/17 03/13/17 History Allergies Allergy/AdvReac Type Severity Reaction Status Date / Time codeine Allergy Severe Nausea & Verified 03/13/17 13:00 Vomiting hydrocodone bitartrate Allergy Severe Nausea & Verified 03/13/17 13:00 [From [place]] Vomiting levofloxacin [From Levaquin] Allergy Severe Nausea & Verified 03/13/17 13:00 Vomiting hydromorphone HCl Allergy seizures Verified 03/13/17 13:00 [From Dilaudid] morphine Allergy Rash/Hives Verified 03/13/17 13:00 alcohol AdvReac MIGRAINES, Verified 03/13/17 13:00 N/V, SOB ibuprofen [From Motrin] AdvReac ABD PAIN, Verified 03/13/17 13:00 ELEVATED LIVER ENZYMES Physical Exam Vitals: Vital Signs Temp Pulse Resp BP Pulse Ox 03/13/17 15:03 97.0 F L 56 L 18 121/76 99 03/13/17 13:30 124/80 03/13/17 13:20 18 124/64 03/13/17 12:21 96.7 F L 57 L 18 135/76 100 Intake and Output 03/13/17 03/13/17 03/13/17 06:59 14:59 22:59 Other: Weight 76.204 kg Patient Weight 03/14/17 06:59 Weight 76.204 kg Constitutional: No acute distress, conversant, pleasant Eyes: Anicteric sclerae, moist conjunctiva, no lid-lag, PERRLA ENMT: NC/AT,Oropharynx clear, no erythema, exudates Neck:Supple, FROM, no masses, or JVD, No carotid bruits; No thyromegaly Lungs: Clear to auscultation, Clear to percussion, Normal respiratory effort, no accessory muscle use Cardiovascular: Heart regular in rate and rhythm, No murmurs, gallops, or rubs no peripheral edema Abdominal: Soft Nontender, nom distended, no guarding, no rebound or rigidity, Normoactive bowel sounds No hepatomegaly, No splenomegaly, No palpable mass No abdominal wall hernia noted Skin: Normal temperature, tone, texture, turgor, No induration No subcutaneous nodules, No rash, lesions, No ulcers Extremities:No digital cyanosis No clubbing, Pedal pulses intact and symmetrical Radial pulses intact and symmetrical Normal gait and station, No calf tenderness Psychiatric: Alert and oriented to person, place and time, Appropriate affect Intact judgement Neuro: Muscles Strength 5/5 in all 4 extremities, Sensation to light touch grossly present throughout, Cranial nerves II-XII grossly intact. No focal sensory deficits Results CBC & Chem 7: 03/13/17 12:52 03/13/17 12:52 Labs: Abnormal Lab Results - Last 24 Hours (Table) 03/13/17 Range/Units 12:52 Potassium 5.2 H (3.5-5.1) mmol/L Assessment and Plan Assessment: Chronic medical conditions Hypothyroidism GERD Sleep apnea Migraine headaches (1) Atypical chest pain Current Visit: Yes Status: Acute Code(s): R07.89 - OTHER CHEST PAIN SNOMED Code(s): 477680418 (2) Cervical radiculopathy due to degenerative joint disease of spine Current Visit: Yes Status: Acute Code(s): M47.22 - OTHER SPONDYLOSIS WITH RADICULOPATHY, CERVICAL REGION SNOMED Code(s): 463260788 (3) Syringomyelia and syringobulbia Current Visit: No Status: Acute Code(s): G95.0 - SYRINGOMYELIA AND SYRINGOBULBIA SNOMED Code(s): 994880135 (4) Hyperkalemia Current Visit: Yes Status: Acute Code(s): E87.5 - HYPERKALEMIA SNOMED Code (s): 06828060 (5) Chronic pain syndrome Current Visit: No Status: Chronic Code(s): G89.4 - CHRONIC PAIN SYNDROME SNOMED Code(s): 905537520 Plan: The patient is placed on observation anticipate a less than 2 midnight stay with atypical chest pain we'll need to rule out acute coronary syndrome, the patient has minimal risk factors other than age unlikely to be anginal related, pateint currently pain free hence will hold on the heparin drip started in the ER, unless there is elevation of troponins We'll continue cycle troponins. She started on antiplatelet therapy with aspirin, nitroglycerin prn, and oxygen. Cardiology was consulted for further recommendations. There is definitely a possibility that her symptoms could be related to her chronic pain underlying syringomyelia, and multilevel arthritis. We'll continue to follow her clinical course
[2017-03-13] MEDS ORDERED: SODIUM CHLORIDE 0.9% 1,000 ML in EMPTY BAG 1 BAG IV ONE (18:20)
[2017-03-13] MEDS ORDERED: ASPIRIN 325 MG TAB PO STA (18:20)
[2017-03-13] MEDS ORDERED: ATORVASTATIN 80 MG TAB PO STA (18:20)
[2017-03-13] MEDS ORDERED: ALPRAZolam 0.25 MG TAB PO PRN (18:20)
[2017-03-13] MEDS ORDERED: NITROGLYCERIN SL TABS 0.4 MG TAB SUBLINGUAL PRN (18:20)
[2017-03-13] MEDS ORDERED: ALPRAZolam 0.5 MG TAB PO PRN (18:20)
[2017-03-13] MEDS: NITROGLYCERIN OINT 1 INCH/GM PACKET TOPICAL SCH (18:28)
[2017-03-13] MEDS: ACETAMINOPHEN TAB 325 MG TAB PO PRN (18:34)
--- NOTE | 2017-03-13 19:33 | CONS ---
CONSULTATION Mrs. Robison is a 51-year-old female with no prior documented history of cardiac disease, who presented to the emergency room with symptoms of chest discomfort. For the last week, she has been complaining of chest discomfort on and off across the chest and in the upper back, not clearly activity related and at times, lasting for a few seconds and at times longer. She has also been complaining for the last few weeks of progressive dyspnea. She has some dizziness but no syncope. She has some palpitation. No clear PND, orthopnea, or peripheral edema. She has no prior cardiac history. She has no history of hypertension, hyperlipidemia, or documented diabetes. She has a family history of premature coronary artery disease in her father. She has a known history of chronic lower back pain but no upper back pain. Her medication at home includes: Tramadol, Naprosyn, and magnesium, fluticasone, aspirin, Zanaflex, , levothyroxine, Prozac, baclofen. The patient has underwent a myocardial perfusion imaging as an outpatient that raised the possibility of anterior wall ischemia. REVIEW OF SYSTEMS: RESPIRATORY system: She has no recent history of wheezing. She has seasonal allergies. GI system: No nausea, no vomiting, and no GI bleeding. system: No dysuria or hematuria. Nervous system: No history of stroke or seizure. PHYSICAL EXAMINATION: She is a 51-year-old female, alert, oriented, no apparent distress. Blood pressure 109/60 with a heart in 50s. HEAD: Normocephalic. Eyes sclerae anicteric. Neck good upstroke. No bruit. No jugular venous distention. LUNGS: Clear to auscultation. HEART: Regular rate and rhythm S1, S2. No S3, no S4. No murmur or rub. ABDOMEN: Soft, nontender. Positive bowel sounds. No organomegaly. EXTREMITIES: No edema. Intact distal pulses. LAB DATA: BUN and creatinine 15 and 1.02. Troponin less than 0.012. NT proBNP of 88. Hemoglobin of 14.4. EKG revealed a sinus mechanism, rate of 53, normal axis, normal intervals, with nonspecific T-wave changes anteriorly. Chest x-ray shows no infiltrate. IMPRESSION: 1. Chest discomfort of unclear etiology with an abnormal myocardial perfusion imaging raising the possibility of anterior wall ischemia. 2. History of chronic back pain. RECOMMENDATIONS: In view of the persistent symptoms of dyspnea and chest discomfort as well as the results of her nuclear scan, I would recommend to proceed with coronary angiography. The rationale behind the procedure as well as risks and complications were discussed with the patient who is in full understanding and agreement. Thank you for this consult. We will follow with you. EUSEBIO / DARELL: [id number] /
[2017-03-13 19:40] LABS: Triglycerides 68 mg/dL (<150)
[2017-03-13 19:45] LABS: Cholesterol 195 mg/dL (<200)
[2017-03-13 19:47] LABS: Creatine Kinase 37 U/L (30-135)
[2017-03-13 19:48] LABS: HDL Cholesterol 83 mg/dL (40-60); LDL Cholesterol,Calculated 98 mg/dL (0-99)
[2017-03-13 20:18] LABS: Creatine Kinase MB 0.2 ng/mL (0.0-2.4); Troponin I <0.012 ng/mL (0.000-0.034)
[2017-03-13] MEDS ORDERED: BACLOFEN 10 MG TAB PO SCH (21:00)
[2017-03-13] MEDS ORDERED: CHOLECALCIFEROL 1,000 UNIT TAB PO SCH (21:00)
[2017-03-13] MEDS ORDERED: tiZANidine 4 MG TAB PO SCH (21:00)
[2017-03-13] MEDS ORDERED: MELATONIN 5 MG TABLET PO SCH (21:00)
[2017-03-13] MEDS ORDERED: MAGNESIUM OXIDE 400 MG TAB PO SCH (21:00)
[2017-03-13] MEDS ORDERED: TEMAZEPAM 30 MG CAP PO SCH (21:00)
[2017-03-13] MEDS ORDERED: FLUoxetine HCL 20 MG CAP PO SCH (21:00)
[2017-03-13] MEDS ORDERED: clonazePAM 1 MG TAB PO SCH (21:00)
[2017-03-14 01:04] LABS: Creatine Kinase 35 U/L (30-135)
[2017-03-14 01:18] LABS: Creatine Kinase MB <0.2 ng/mL (0.0-2.4); Troponin I <0.012 ng/mL (0.000-0.034)
[2017-03-14] MEDS ORDERED: LEVOTHYROXINE 25 MCG TAB PO SCH (06:30)
[2017-03-14 07:36] LABS: Mean Platelet Volume 6.2; Platelet Count 230 k/uL (150-450)
[2017-03-14 07:42] LABS: Cholesterol 177 mg/dL (<200); HDL Cholesterol 73 mg/dL (40-60); LDL Cholesterol,Calculated 89 mg/dL (0-99); Triglycerides 73 mg/dL (<150)
[2017-03-14] MEDS: NITROGLYCERIN OINT 1 INCH/GM PACKET TOPICAL SCH ×2 (08:52→09:00)
[2017-03-14] MEDS: ACETAMINOPHEN TAB 325 MG TAB PO PRN ×2 (08:52→15:23)
[2017-03-14] MEDS ORDERED: ASPIRIN 325 MG TAB PO SCH (09:00)
[2017-03-14] MEDS ORDERED: fentaNYL (PF) 50 MCG/ML 2 ML AMP ONE (11:00)
[2017-03-14] MEDS ORDERED: VERAPAMIL 2.5 MG/ML 2 ML AMP ONE (11:00)
[2017-03-14] MEDS ORDERED: diphenhydrAMINE 50 MG/ML 1 ML VIAL ONE (11:00)
[2017-03-14] MEDS ORDERED: IV FLUID CONTINUATION 1,000 ML IV ONE (11:15)
[2017-03-14] MEDS ORDERED: MIDAZOLAM 2 MG/2 ML VIAL ONE (11:35)
[2017-03-14] MEDS ORDERED: fentaNYL (PF) 50 MCG/ML 2 ML AMP IVP ONE (11:36)
[2017-03-14] MEDS ORDERED: diphenhydrAMINE 50 MG/ML 1 ML VIAL IVP ONE (11:36)
[2017-03-14] MEDS ORDERED: MIDAZOLAM 2 MG/2 ML VIAL IVP ONE (11:37)
[2017-03-14] MEDS ORDERED: LIDOCAINE 2% INJ 20 MG/ML SQ ONE (11:38)
[2017-03-14] MEDS: VERAPAMIL SYRINGE (5 MG/10 ML) INTRAARTER ONE ×2 (11:40→11:48)
--- NOTE | 2017-03-14 11:53 | ECHOF ---
Referral Reason:karimi MEASUREMENTS -------- HEIGHT: 152.4 cm WEIGHT: 76.2 kg BP: 96/55 RVIDd: 2.8 cm (< 3.3) IVSd: 0.9 cm (0.6 - 1.1) LVIDd: 4.3 cm (3.9 - 5.3) LVPWd: 0.9 cm (0.6 - 1.1) IVSs: 1.3 cm LVIDs: 3.4 cm LVPWs: 1.1 cm LA Diam: 3.3 cm (2.7 - 3.8) LAESV Index (A-L): 33.11 ml/m Ao Diam: 2.5 cm (2.0 - 3.7) AV Cusp: 2.0 cm (1.5 - 2.6) LA Diam: 3.7 cm (2.7 - 3.8) MV EXCURSION: 12.690 mm (> 18.000) MV EF SLOPE: 97 mm/s (70 - 150) EPSS: 0.4 cm MV E Tito: 0.83 m/s MV DecT: 138 ms MV A Tito: 0.65 m/s MV E/A Ratio: 1.27 RAP: 5.00 mmHg RVSP: 17.46 mmHg FINDINGS -------- Sinus rhythm. This was a technically good study. LV size, wall thickness and systolic function are normal, with an EF greater than 55%. The left domingo tricular size is normal. The right ventricle is normal in size. LA is midly dilated 29-33ml/m2. The right atrial size is normal. The aortic valve is trileaflet, and appears structurally normal. No aortic stenosis or regurgitation. The mitral valve is normal. Mild mitral regurgitation is present. Mild tricuspid regurgitation present. There is no evidence of pulmonary hypertension. The right v entricular systolic pressure, as measured by Doppler, is 17.46mmHg. Trace/mild (physiologic) pulmonic regurgitation. The aortic root size is normal. There is no pericardial effusion. CONCLUSIONS -------- 1. Sinus rhythm. 2. This was a technically good study. 3. LV size, wall thickness and systolic function are normal, with an EF greater than 55%. 4. The left ventricular size is normal. 5. LA is midly dilated 29-33ml/m2. 6. The aortic valve is trileaflet, and appears structurally normal. No aortic stenosis or regurgitati on. 7. Mild mitral regurgitation is present. 8. Mild tricuspid regurgitation present. 9. There is no evidence of pulmonary hypertension. 10. Trace/mild (physiologic) pulmonic regurgitation. 11. The aortic root size is normal. 12. There is no pericardial effusion. MANUSCRIPT READER: Chantelle Cote RDCS
[2017-03-14] MEDS ORDERED: HEPARIN SODIUM 1,000 UN/ML (10ML VL) IV ONE (11:55)
[2017-03-14] MEDS ORDERED: IOHEXOL 350 MG/ML 125ML BOTTLE INJ ONE (12:03)
[2017-03-14] MEDS ORDERED: RX INFO: IV CONTRAST WAS GIVEN 1 EACH MISC MISCELLANE PRN (12:10)
[2017-03-14] MEDS ORDERED: SODIUM CHLORIDE 0.9% 1,000 ML IV SCH (12:15)
[2017-03-14 12:29] VITALS: RESP 18; TEMP 97.6
--- NOTE | 2017-03-14 12:37 | CC ---
CARDIAC CATHETERIZATION REPORT Mrs. Robison is a 51-year-old female with no prior documented coronary artery disease and a family history of coronary artery disease, who presented with symptoms of discomfort. She has underwent a myocardial perfusion imaging as an outpatient that revealed evidence of inducible ischemia in the anterior wall. In view of that, recommendation made regarding cardiac catheterization. The procedures, risks and complications were discussed with the patient who is in full understanding and agreement. PROCEDURE: Patient was brought to [facility] in a fasting semi-sedated state after receiving fentanyl and Benadryl and achieving moderate conscious sedated state. Using Xylocaine anesthesia and Seldinger technique, a 6-Sudanese sheath was introduced in the right radial artery. Selective right and left angiography performed using 5-Sudanese 3.5 bend right and left Yeny catheter. Multiple views of the coronary artery including leticia- axial views obtained. Following that, a 5-Sudanese tight pigtail catheter was introduced into the left ventricle and a 30 degree MENDEZ view of the left ventricle was obtained. Following that, the catheter and sheaths were removed. Hemostasis was obtained with deployment of a TR band. There was no immediate complication. Patient is returned to her room in stable condition. Of note, the patient received 4000 units of intravenous heparin as well as intra-arterial verapamil. FINDINGS: 1. LEFT MAIN: This is a large-sized vessel bifurcating into left circumflex, left anterior descending artery. Left main coronary artery is without any significant obstructive coronary artery disease. 2. LEFT ANTERIOR DESCENDING ARTERY: This is a large-sized vessel, reaching toward the apex with a wraparound apex segment giving rise to a diagonal branch of moderate caliber. The left anterior descending artery and its branches have no evidence of obstructive coronary artery disease. 3. LEFT CIRCUMFLEX: This is a nondominant vessel giving rise to a large obtuse marginal branch. The left circumflex as well as branches have no evidence of obstructive coronary artery disease. 4. RIGHT CORONARY ARTERY: This is a dominant vessel giving rise to a PD and a PLV distally. The right coronary artery and its branches have no evidence of obstructive coronary artery disease. 5. LEFT VENTRICULOGRAM: Left ventriculogram was performed in 30 degree MENDEZ view and revealed normal left ventricular size and systolic function, ejection fraction 60%. There was no significant mitral regurgitation. 6. HEMODYNAMICS: There was no gradient across the aortic valve. The left ventricular end-diastolic pressure was 12 to 14 mmHg. CONCLUSION: 1. Normal coronary arteries. 2. Normal left ventricular size and systolic function. RECOMMENDATION: 1. In view of finding anatomy, I would recommend continue medical therapy with aggressive coronary risk modifications being initiated. Those findings and recommendation were discussed with the patient and her family who are in full understanding and agreement. 2. Duration of procedure 35 minutes. EUSEBIO / WENDYN: [id number] /
--- NOTE | 2017-03-14 12:43 | LTR ---
DATE OF SERVICE: 03/14/2017 RE: Karla Robison Dear Dr. Soto; I had the pleasure to perform cardiac catheterization on Ms. Robison at [facility] on March 14, 2017 and a full copy of the procedure note will be forwarded to you. In brief, she was found to have no evidence of obstructive coronary artery disease with a preserved ventricular size and systolic function. Based on those findings, I have recommended continue medical therapy with aggressive risk modifications being initiated. Thank you again for allowing me to participate in your patient's care. Please feel free to call for any questions. Sincerely yours, MD ABAD TrippL / WENDYN: [id number] /
--- NOTE | 2017-03-14 12:58 | P.DS ---
Providers Date of admission: 03/13/17 14:23 Expected date of discharge: 03/14/17 Attending physician: Andreas Gonsales MD Consults: 03/13/17 14:23 Consult Physician Urgent Consulting Provider: Halley Anna Consult Reason/Comments: ua, inconclusive recent stress test Do you want consulting provider notified?: Yes Primary care physician: Caryl Soto MD - Discharge Diagnosis(es) (1) Atypical chest pain Current Visit: Yes Status: Acute (2) Depression Current Visit: No Status: Acute Hospital Course: 51-year-old female that comes in with symptoms of discomfort in her chest for the past couple months. Patient had a positive stress test as an outpatient. Patient had cardiac catheterization performed which showed normal coronaries. Patient will be discharged home with follow-up with Dr. Charles Bojorquez gen:alert and oriented lungs:clear to auscultation heart:s1s2 abdomen:soft and depressible,non tender ext:no edema Patient Condition at Discharge: Stable Plan - Discharge Summary Discharge Rx Participant: Yes New Discharge Prescriptions: Continue FLUoxetine HCL [PROzac] 80 mg PO HS Melatonin 30 mg PO HS Magnesium Gluconate [Magonate] 500 mg PO HS clonazePAM [KlonoPIN] 1 mg PO HS traMADol HCL [Ultram] 50 mg PO HS PRN PRN Reason: Pain Cholecalciferol [Vitamin D3] 5,000 unit PO HS Fluticasone Propionate [Flovent Hfa 110mcg] 2 puff INHALATION RT-BID PRN PRN Reason: ALLERGIES Levothyroxine Sodium 25 mcg PO QAM Naproxen Sodium [Aleve] 440 mg PO DAILY PRN PRN Reason: Pain Butalb/APAP/Caff 50-325-40Mg [Fioricet 50-325-40] 2 tab PO Q4H PRN PRN Reason: MIGRAINES tiZANidine [Zanaflex] 8 mg PO HS Baclofen [Lioresal] 20 mg PO HS Zaleplon 10 mg PO HS Aspirin 81 mg PO DAILY No Action Aspirin/Acetaminophen/Caffeine [Excedrin Migraine Caplet] 2 tab PO DAILY PRN PRN Reason: Migraine Headache Discharge Medication List FLUoxetine HCL [PROzac] 80 mg PO HS 10/16/13 [History] Melatonin 30 mg PO HS 02/09/15 [History] Magnesium Gluconate [Magonate] 500 mg PO HS 01/04/16 [History] clonazePAM [KlonoPIN] 1 mg PO HS 01/04/16 [History] traMADol HCL [Ultram] 50 mg PO HS PRN 01/04/16 [History] Aspirin/Acetaminophen/Caffeine [Excedrin Migraine Caplet] 2 tab PO DAILY PRN 11/21 [History] Baclofen [Lioresal] 20 mg PO HS 11/14/16 [History] Butalb/APAP/Caff 50-325-40Mg [Fioricet 50-325-40] 2 tab PO Q4H PRN 11/14/16 [ History] Cholecalciferol [Vitamin D3] 5,000 unit PO HS 11/14/16 [History] Fluticasone Propionate [Flovent Hfa 110mcg] 2 puff INHALATION RT-BID PRN [History] Levothyroxine Sodium 25 mcg PO QAM 11/14/16 [History] Naproxen Sodium [Aleve] 440 mg PO DAILY PRN 11/14/16 [History] tiZANidine [Zanaflex] 8 mg PO HS 11/14/16 [History] Zaleplon 10 mg PO HS 02/13/17 [History] Aspirin 81 mg PO DAILY 03/13/17 [History] Follow up Appointment(s)/Referral(s): Sam Bojorquez MD [STAFF PHYSICIAN] - 1 Week Caryl Soto MD [Primary Care Provider] - 1-2 days Discharge Disposition: HOME SELF-CARE
[2017-03-14 16:11] VITALS: BP 101/59; PULSE 74
== END 2017-03-14 18:15 | disposition home or self-care (01) ==
LOC: EC 12:20 → 3OBS 14:23
PROVIDERS: ADMIT Family Medicine; ATTEND Family Medicine
DX: R07.89 Other chest pain (principal); F32.9 Major depressive disorder, single episode, unspecified; R94.39 Abnormal result of other cardiovascular function study; E87.5 Hyperkalemia; E03.9 Hypothyroidism, unspecified; M47.22 Other spondylosis with radiculopathy, cervical region; G95.0 Syringomyelia and syringobulbia; K21.9 Gastro-esophageal reflux disease without esophagitis; G43.909 Migraine, unspecified, not intractable, without status migrainosus; M19.90 Unspecified osteoarthritis, unspecified site; G47.30 Sleep apnea, unspecified; J45.909 Unspecified asthma, uncomplicated; F41.9 Anxiety disorder, unspecified; G89.4 Chronic pain syndrome; M54.5 Low back pain; K44.9 Diaphragmatic hernia without obstruction or gangrene; M85.80 Other specified disorders of bone density and structure, unspecified site; Z79.82 Long term (current) use of aspirin; Z79.51 Long term (current) use of inhaled steroids; Z88.6 Allergy status to analgesic agent; Z88.1 Allergy status to other antibiotic agents; Z88.5 Allergy status to narcotic agent; Z91.048 Other nonmedicinal substance allergy status; Z88.8 Allergy status to other drugs, medicaments and biological substances; Z87.11 Personal history of peptic ulcer disease; Z87.891 Personal history of nicotine dependence; Z99.89 Dependence on other enabling machines and devices; Z82.49 Family history of ischemic heart disease and other diseases of the circulatory system; Z82.5 Family history of asthma and other chronic lower respiratory diseases; Z80.51 Family history of malignant neoplasm of kidney; Z82.69 Family history of other diseases of the musculoskeletal system and connective tissue
CPT/HCPCS: 99152; 99153; 96376 ×2; 96365 ×2; 99291 ×2; 36415; 93005; 93306; 93458; 85379; 83880; 80061 ×2; 80053; 82550 ×2; 82553 ×2; 83735; 84484 ×2; 85025; 85049; 85610; 85730; 71046; G0378 ×2; C1769; J2001; J2250; J1200; J1644 ×3; J3010; Q9967

== ENCOUNTER 2017-03-22 08:01 | Day surgery (SDC) | payer MEDICAID ==
[2017-03-19 11:16] VITALS: BMI 31.2
[~2017-03-22 08:01] MED LIST changes: +LACTATED RINGERS 1,000 ML IV SCH; -REGADENOSON 0.4 MG/5 ML SYRINGE IV ONE
[2017-03-22 08:30] VITALS: RESP 18; TEMP 97.9
[2017-03-22] MEDS ORDERED: LIDOCAINE 1% 20 ML VIAL (10MG/ML) FOR IV START INTRADERMA ONE (08:32)
[2017-03-22] MEDS ORDERED: ONDANSETRON 4 MG/2 ML VIAL IVP ONE (08:33)
--- NOTE | 2017-03-22 10:14 | P.PCN ---
Date of Procedure: 03/22/17 Procedure(s) Performed: PREOPERATIVE DIAGNOSIS: 1-Lumbosacral spondylosis with facet arthropathy without myelopathy. 2- Bilateral sacroiliit. post operative Diagnosis: . 1-Lumbosacral spondylosis with facet arthropathy without myelopathy. 2- Bilateral sacroiliit. PROCEDURES: 1- Right radiofrequency thermocoagulation/ablation of the L5 dorsal ramus. 2- Right multi-site radiofrequency thermocoagulation/ablation of the S1, S2, lateral branchs. (S 3 not done because I was not able to see S3 foramina ) The procedure was performed using fluoroscopic guidance during needle placement to assure proper position and maximize safety . ANESTHESIA: LOCAL ANESTHESIA = moderate sedation with intravenous versed 4 mg and Fentanyle 100 mcg EBL: NONE INDICATION/MEDICAL NECESSITY: History of low back pain secondary to bilatera sacroiliitis and lumbosacral arthropathy unresponsive to more conservative treatments. The patient reported more than 50% relief of pain symptoms following 2 previous diagnostic blocks with Bupivacaine. PROCEDURE DESCRIPTION: The patient was seen and identified in the preoperative area. Risks, benefits, complications, and alternatives were discussed with the patient. The patient agreed to proceed with the procedure and signed the consent. Vital signs were checked before and after the procedure and they remained stable. Patient ambulated to the procedure room and time out was completed. The patient was placed in the prone position on the procedure table and a pillow was placed under the abdomen to reduce lumbar lordosis. The lumbosacral area was prepped and draped in the usual sterile fashion. Critical pause was taken. L5 Dorsal Ramus RF: Using right oblique fluoroscopy, the junction of the transverse process and the superior articular process of the right S1 vertebra, which correspond to the fluoroscopic image of the "eye of the Elvis dog" was identified. Subsequently, a 10-cm 20 -gauge radiofrequency cannula with a 10-mm active tip was advanced under fluoroscopic guidance until contact was made with periosteum. At this level, the Sensory testing of the L5 dorsal ramus was performed at 50 Hz and 0 to 1 volt with production of concordant pain starting at 0.5 volt. Motor stimulation was done at 2.5 Hz with stimulation of mulitifidus muscle contration . No radicular symptoms or paresthesias were produced during the testing. Subsequently, the L5 dorsal ramus was subjected to a radiofrequency ablation at 80 degree celsius for 90 seconds . after 0.5% Bupivacaine 1 ml injected at each level after negative aspirations S1, S3, and S3 Lateral Branch RF: The lateral margins of the Right S1, S2, foramina were identified using AP fluoroscopy. Under fluoroscopic guidance, three 10-cm 20 -gauge radiofrequency cannula with a 10-mm active tip were inserted at 8-10 mm peripheral to the posterior S1 foramen, at various locations using clock-face coordinates. The center of the clock was registered at the lateral margin of the foramen. The 4: 00, and 5:30 oclock positions were used. At this level, the sensory testing of the S1 lateral branch was performed at 50 Hz and 0 to 1 volt at the three levels with production of concordant pain starting at 0.5 volt. Motor stimulation was done at 2.5 Hz. No radicular symptoms or paresthesias were produced during the testing. Subsequently, the S1 lateral branch was subjected to a radiofrequency ablation at a mode of 90 seconds at 80 degrees Celsius at the 2 levels after negative motor and sensory testing and after injecting 0.5 ml of preservative free Bupivacaine 0.5 %. The same procedure was performed at the level of the S2 foramen. The needle was withdrawn intact after each injection. COMPLICATIONS: The patient tolerated the procedure well without any acute complications. DISPOSTION/PLAN: The patient ambulated to the recovery area after the procedure in a stable condition for observation. Patient was reexamined prior to discharge. Patient was observed for 30 minutes in the recovery area and was discharged home, accompanied by an adult, after meeting discharged criteria. Discharge instructions were give to the patient by the staff. Patient was specifically instructed not to drive today and to rest for the rest of the day. The patient will schedule a follow up visit in the clinic in weeks or earlier if needed.
[2017-03-22] MEDS ORDERED: IV FLUID CONTINUATION 1,000 ML IV ONE (10:15)
--- NOTE | 2017-03-22 10:18 | FL ---
EXAMINATION TYPE: FL guided pain mgmt statistic DATE OF EXAM: 03/22/2017 HISTORY: Flouroscopy time 22 seconds of fluoroscopy provided. IMPRESSION: 1. Fluoroscopy time.
[2017-03-22 10:52] VITALS: BP 122/68; PULSE 60
== END 2017-03-22 12:31 | disposition home or self-care (01) ==
LOC: ORPAIN 08:01
PROVIDERS: ATTEND Specialist
DX: M47.817 Spondylosis without myelopathy or radiculopathy, lumbosacral region (principal); M46.1 Sacroiliitis, not elsewhere classified; G47.33 Obstructive sleep apnea (adult) (pediatric); E03.9 Hypothyroidism, unspecified; Z88.6 Allergy status to analgesic agent; Z88.1 Allergy status to other antibiotic agents; Z88.5 Allergy status to narcotic agent; Z91.09 Other allergy status, other than to drugs and biological substances
CPT/HCPCS: 64635; 64640; 99152; 99153

== ENCOUNTER 2017-04-09 06:46 | Day surgery (SDC) | payer MEDICAID ==
[2017-04-04 15:21] VITALS: BMI 31.2
--- NOTE | 2017-04-09 05:24 | P.GSHP ---
History of Present Illness H&P Date: 04/09/17 CHIEF COMPLAINT: GERD HISTORY OF PRESENT ILLNESS: The patient is a 51-year-old female who presents reports gastroesophageal reflux disease. Upper endoscopy was offered for further evaluation and management. PAST MEDICAL HISTORY: Please see list. PAST SURGICAL HISTORY: Please see list. MEDICATIONS: Please see list. ALLERGIES: Please see list. SOCIAL HISTORY: No illicit drug use FAMILY HISTORY: No reports of Crohn disease or ulcerative colitis. REVIEW OF ORGAN SYSTEMS: CONSTITUTIONAL: No reports of fevers or chills. GI: Denies any blood in stools or constipation. PHYSICAL EXAM: VITAL SIGNS: Stable GENERAL: Well-developed and pleasant in no acute distress. HEENT: No scleral icterus. Extraocular movements grossly intact. Moist buccal mucosa. NECK: Supple without lymphadenopathy. CHEST: Unlabored respirations. Equal bilateral excursions. CARDIOVASCULAR: Regular rate and rhythm. Distal 2+ pulses. ABDOMEN: Soft, nondistended. MUSCULOSKELETAL: No clubbing, cyanosis, or edema. ASSESSMENT: 1. Gastroesophageal reflux disease PLAN: 1. Recommend proceeding with an upper endoscopy Past Medical History Past Medical History: Eye Disorder, GERD/Reflux, Neurologic Disorder, Osteoarthritis (OA), Sleep Apnea/CPAP/BIPAP, Thyroid Disorder Additional Past Medical History / Comment(s): RECENT ADMISSION FOR SOB AND CHEST PAIN 03-13-17. migraines, seasonal allergies, ALLERGY-induced asthma,RT EPI RETINAL MEMBRANE . Peptic ulcer disease with hemorrhage, HX H.Pylori, hiatal hernia, syringomyelia, sleep apnea, chronic back pain, hemorrhoids, ddd , lumbar spondylosis. recent stress test. History of Any Multi-Drug Resistant Organisms: None Reported Past Surgical History: Adenoidectomy, Bladder Surgery, Cholecystectomy, Heart Catheterization, Hysterectomy, Orthopedic Surgery, Tonsillectomy, Tubal Ligation Additional Past Surgical History / Comment(s): Monarc procedure, Pubovaginal sling, UPPP for sleep apnea , A & P repair, laparoscopic lysis of adhesion 2, left heart catheterization 2006, EGD/colonoscopy last one 02/12/15, ORIF lt foot, lt shoulder sx 02/26/15, pain clinic injections, RFA LT lower back, HEART CATH -CLEAR, RFA RT LOWER BACK 03/22/17 Past Anesthesia/Blood Transfusion Reactions: Previous Problems w/ Anesthesia, Motion Sickness, Postoperative Nausea & Vomiting (PONV) Additional Past Anesthesia/Blood Transfusion Reaction / Comment(s): severe N/V with anesthesia-usually even with pre op measures Smoking Status: Former smoker - Past Family History Father Family Medical History: Cancer, Myocardial Infarction (DC) Additional Family Medical History / Comment(s): AGE 78, KIDNEY CA Mother Family Medical History: Asthma, COPD, Eye Disorder, Fibromyalgia, GERD/Reflux Additional Family Medical History / Comment(s): AT AGE 1975- RESP FAILURE( PAST HEAVY SMOKER) Sister(s) Family Medical History: Hypertension Brother(s) Family Medical History: No Reported History Daughter(s) Family Medical History: Cancer Additional Family Medical History / Comment(s): cervical Son(s) Family Medical History: No Reported History Medications and Allergies Home Medications Medication Instructions Recorded Confirmed Type FLUoxetine HCL [PROzac] 80 mg PO HS 10/16/13 04/04/17 History Melatonin 30 mg PO HS 02/09/15 04/04/17 History clonazePAM [KlonoPIN] 1 mg PO HS 01/04/16 04/04/17 History traMADol HCL [Ultram] 50 mg PO HS PRN 01/04/16 04/04/17 History Butalb/APAP/Caff 50-325-40Mg 2 tab PO Q4H PRN 11/14/16 04/04/17 History [Fioricet 50-325-40] Fluticasone Propionate [Flovent 2 puff INHALATION RT-BID PRN 11/14/16 04/04/17 History Hfa 110mcg] Levothyroxine Sodium 25 mcg PO QAM 11/14/16 04/04/17 History Zaleplon 10 mg PO HS 02/13/17 04/04/17 History Aspirin 81 mg PO DAILY 03/13/17 04/04/17 History Allergies Allergy/AdvReac Type Severity Reaction Status Date / Time codeine Allergy Severe Nausea & Verified 04/04/17 15:12 Vomiting hydrocodone bitartrate Allergy Severe Nausea & Verified 04/04/17 15:12 [From [place]] Vomiting levofloxacin [From Levaquin] Allergy Severe Nausea & Verified 04/04/17 15:12 Vomiting hydromorphone HCl Allergy seizures Verified 04/04/17 15:12 [From Dilaudid] morphine Allergy Rash/Hives Verified 04/04/17 15:12 alcohol AdvReac MIGRAINES, Verified 04/04/17 15:12 N/V, SOB ibuprofen [From Motrin] AdvReac ABD PAIN, Verified 04/04/17 15:12 ELEVATED LIVER ENZYMES
[~2017-04-09 06:46] MED LIST changes: +LIDOCAINE 1% 20 ML VIAL (10MG/ML) FOR IV START INTRADERMA PRN
[2017-04-09 07:07] VITALS: RESP 16; TEMP 98.2
[2017-04-09] MEDS ORDERED: ONDANSETRON 4 MG/2 ML VIAL IVP ONE (07:12)
[2017-04-09] MEDS ORDERED: DEXAMETHASONE SOD PHOSPHATE 10 MG/ML 1 ML VIAL IV ONE (07:13)
[2017-04-09] MEDS ORDERED: SCOPOLAMINE 1.5MG/72HR PATCH TRANSDERM ONE (07:14)
[2017-04-09] MEDS ORDERED: LIDOCAINE 1% INJ 10MG/ML (20 ML MDV) ONE (07:36)
[2017-04-09] MEDS ORDERED: PROPOFOL 10 MG/ML 20 ML VIAL IV ONE (07:36)
--- NOTE | 2017-04-09 07:47 | P.PCN ---
Date of Procedure: 04/09/17 Description of Procedure: PREOPERATIVE DIAGNOSIS: Gastroesophageal reflux disease. Chronic cough Atypical chest pain POSTOPERATIVE DIAGNOSIS: Gastroesophageal reflux disease. Chronic cough Gastritis. Atypical chest pain Duodenitis Diaphragmatic hiatal hernia without obstruction. OPERATION: Esophagogastroduodenoscopy with biopsies along antrum and duodenum. SURGEON: Dinora Hardy MD ANESTHESIA: MAC. INDICATIONS: The patient is a 51-year-old female who presents with a history of reflux disease. Benefits and risks of the procedure were described. Informed consent was obtained. DESCRIPTION: The patient was brought into the endoscopy suite and laid in the left lateral decubitus position. An Olympus gastroscope was passed along the posterior oropharynx down to the distal esophagus where the squamocolumnar junction was encountered at 34 cm from the incisors. The stomach was entered and no bile reflux was found. Additional findings are listed below. Biopsies with cold forceps were obtained of the antrum. The first through third portion of the duodenum was examined and unremarkable. Retroflexion of the scope confirmed Hill grade 4 lower esophageal valve. The squamocolumnar junction demostrated early and LA grade B erosive esophagitis. The stomach was desufflated. The patient tolerated the procedure well. FINDINGS: Squamocolumnar junction 34 cm from the incisors. Diaphragmatic hiatus at 36 cm. Hiatal hernia 2 cm. Hill grade 4 lower esophageal valve. LA grade A erosive esophagitis. Active duodenitis. Gastritis superficial gastric ulcers along antrum RECOMMENDATIONS: Continue medical therapy. Further recommendations pending results of pathology report. Upper endoscopy as needed. Will benefit from antireflux surgical procedure Plan - Discharge Summary New Discharge Prescriptions: No Action FLUoxetine HCL [PROzac] 80 mg PO HS Melatonin 30 mg PO HS clonazePAM [KlonoPIN] 1 mg PO HS traMADol HCL [Ultram] 50 mg PO HS PRN PRN Reason: Pain Fluticasone Propionate [Flovent Hfa 110mcg] 2 puff INHALATION RT-BID PRN PRN Reason: ALLERGIES Levothyroxine Sodium 25 mcg PO QAM Butalb/APAP/Caff 50-325-40Mg [Fioricet 50-325-40] 2 tab PO Q4H PRN PRN Reason: MIGRAINES Zaleplon 10 mg PO HS Aspirin 81 mg PO DAILY Discharge Medication List FLUoxetine HCL [PROzac] 80 mg PO HS 10/16/13 [History] Melatonin 30 mg PO HS 02/09/15 [History] clonazePAM [KlonoPIN] 1 mg PO HS 01/04/16 [History] traMADol HCL [Ultram] 50 mg PO HS PRN 01/04/16 [History] Butalb/APAP/Caff 50-325-40Mg [Fioricet 50-325-40] 2 tab PO Q4H PRN 11/14/16 [ History] Fluticasone Propionate [Flovent Hfa 110mcg] 2 puff INHALATION RT-BID PRN [History] Levothyroxine Sodium 25 mcg PO QAM 11/14/16 [History] Zaleplon 10 mg PO HS 02/13/17 [History] Aspirin 81 mg PO DAILY 03/13/17 [History]
[2017-04-09 08:09] VITALS: BP 119/79; PULSE 56
== END 2017-04-09 08:38 | disposition home or self-care (01) ==
LOC: ORWHC2ENDO 06:46
PROVIDERS: ATTEND Surgery Plastic and Reconstructive Surgery
DX: K29.50 Unspecified chronic gastritis without bleeding (principal); K29.80 Duodenitis without bleeding; K21.9 Gastro-esophageal reflux disease without esophagitis; K44.9 Diaphragmatic hernia without obstruction or gangrene; G89.29 Other chronic pain; G43.909 Migraine, unspecified, not intractable, without status migrainosus; J45.909 Unspecified asthma, uncomplicated; E07.9 Disorder of thyroid, unspecified; M19.90 Unspecified osteoarthritis, unspecified site; G47.33 Obstructive sleep apnea (adult) (pediatric); Z88.6 Allergy status to analgesic agent; Z87.891 Personal history of nicotine dependence; Z90.49 Acquired absence of other specified parts of digestive tract; Z90.710 Acquired absence of both cervix and uterus; Z79.82 Long term (current) use of aspirin; Z79.899 Other long term (current) drug therapy; Z99.89 Dependence on other enabling machines and devices
CPT/HCPCS: 88305; 88342; 43239; J1100; J2405; J2001; J2704

== ENCOUNTER → 2017-04-23 | Outpatient (CLI) | payer MEDICAID ==
[2017-04-23 11:29] VITALS: BP 128/78; PULSE 53; RESP 16
--- NOTE | 2017-04-23 19:57 | P.PN ---
Subjective Progress Note Date: 04/23/17 This is follow-up visit for this patient with a history of severe and chronic low back pain secondary to sacroiliitis , lumbar spondylosis with facet arthropathy, we have done Radiofrequency ablation of the sacroiliac joint, the pain improved significantly after the radiofrequency Patients currently on Ultram 50 mg every 6 hours when necessary Patient denies any side effects of the medication, denies excessive drowsiness or sleepiness, denies suicidal ideation, and reports that the current pain medication is helping To control the pain ,and improve activity of daily living Patient denies any motor or sensory deficit , patient denies any fever or night sweats, denies any change in the bowel movements or urination Physical Examinations : 1-Constitutiona : Cooperative , not in acute distress . 2-HEENT : nech ; supple , no Lymphadenopathy , no Thyromegaly , normal thyroid size . eyes : no ptosis , no icterus, no photophobia . ENT : normal of hearing , normal oropharynx , no Thrush . 3- Respiratory : Chest clear to auscultations Bilaterally , no wheezing , no Rhonchi . 4- Cardiovascular : regular rate and rhythem , S1 , S2 , no S3 , no S4. 5- Gastrointestinal : abdomen soft no tenderness , bowel sounds positive all four quadrents , no organomegally . 6- Genitourinary : Defferred . 7- neurologic : Cranial nerve II to XII intact , no focal neurological deffecit . 8-psychatric : alert , oriented X 3 , appropriate affect , intact judgment and insight . 9-Lymphatic : no Lymphadenopathy . 10- musculoskeltal : Normal motor and sensory Assessment and plan = chronic severe low back pain secondary to sacroiliitis and lumbar spondylosis the pain improved significantly after the radiofrequency ablation of the sacroiliac joint, she will follow up with the pain clinic when necessary Objective - Vital Signs Vital signs: Vital Signs Temp Pulse 53 L 04/23/17 11:24 Resp 16 04/23/17 11:24 BP 128/78 04/23/17 11:24 Pulse Ox 99 04/23/17 11:24 Intake & Output 04/23/17 04/23/17 04/24/17 06:59 18:59 06:59 Weight 76.204 kg
== END | disposition home or self-care (01) ==
LOC: PNWHC3 10:58
PROVIDERS: ATTEND Specialist
DX: G89.29 Other chronic pain (principal); M47.816 Spondylosis without myelopathy or radiculopathy, lumbar region; M46.1 Sacroiliitis, not elsewhere classified; Z98.890 Other specified postprocedural states; Z79.891 Long term (current) use of opiate analgesic
CPT/HCPCS: 99211

== ENCOUNTER → 2017-04-30 | Day surgery (SDC) | payer MEDICAID ==
[2017-04-25 13:31] VITALS: BMI 31.2
[2017-04-30 13:07] VITALS: BP 140/72; PULSE 86; RESP 16; TEMP 97.8
--- NOTE | 2017-05-02 12:13 | PCN ---
PROCEDURE NOTE DATE OF SERVICE: 04/30/2017. REQUESTING PHYSICIAN: Dr. Caryl Soto. PROCEDURE PERFORMED: High-resolution impedance esophageal manometry. PREOPERATIVE DIAGNOSIS: Dysphagia. PROCEDURE: After informed consent was obtained from the patient, she was brought in to the endoscopy unit. The high-resolution manometry probe was passed in and gently advanced into the distal esophagus and stomach and the study was performed by endoscopy nurse, Lore Cheek. The study was interpreted using [place] classification. The following are the study results: 1. Mean IRP: 18 mmHg. 2. Mean DCI: 48 mmHg. 3. Distal latency more than 4.5 seconds. 4. Complete bolus transit time: 100%. 5. Complete viscus transit time: 100%. 6. Peristalsis: 100%. INTERPRETATION: The above esophageal manometry study is essentially within normal limits with no evidence of esophageal dysmotility. This concludes the study results. MMODL / IJN: [id number] /
== END ==
LOC: ORWHC2ENDO 12:38
PROVIDERS: ATTEND Internal Medicine Gastroenterology
DX: R13.10 Dysphagia, unspecified (principal)
CPT/HCPCS: 91010

== ENCOUNTER 2017-07-09 09:34 | Inpatient (IN) | payer MEDICAID ==
[2017-06-26 11:19] VITALS: BMI 29.7
--- NOTE | 2017-07-08 12:03 | P.GSHP ---
History of Present Illness H&P Date: 07/09/17 CHIEF COMPLAINT: Paraesophageal hiatal hernia with gastroesophageal reflux disease. HISTORY OF PRESENT ILLNESS: The patient is a 52-year-old male who presents with paraesophageal hiatal hernia. She has completed an esophageal manometry including upper endoscopy workup. Now she presents for surgical intervention. PAST MEDICAL HISTORY: Please see list. PAST SURGICAL HISTORY: Please see list. MEDICATIONS: Please see list. ALLERGIES: Please see list. SOCIAL HISTORY: No illicit drug use FAMILY HISTORY: No reports of Crohn disease or ulcerative colitis. REVIEW OF ORGAN SYSTEMS: CONSTITUTIONAL: No reports of fevers or chills. GI: Denies any blood in stools or constipation. PHYSICAL EXAM: VITAL SIGNS: Stable GENERAL: Well-developed pleasant and in no acute distress. HEENT: No scleral icterus. Extraocular movements grossly intact. Moist buccal mucosa. NECK: Supple without lymphadenopathy. CHEST: Unlabored respirations. Equal bilateral excursions. CARDIOVASCULAR: Regular rate and rhythm. Distal 2+ pulses. ABDOMEN: Soft, nondistended. No peritoneal signs. MUSCULOSKELETAL: No clubbing, cyanosis, or edema. SKIN: Well-perfused. Good skin turgor. MANOMETRY: Shows no evidence of achalasia or scleroderma. ASSESSMENT: 1. Diaphragmatic paraesophageal hiatal hernia with severe gastroesophageal reflux disease. PLAN: 1. Recommend proceeding with a robotic paraesophageal hiatal hernia with possible mesh. 2. Benefits and risks of surgical intervention was discussed including possibility of open technique. 3. Inpatient hospitalization recommended of 2 nights 4. DVT prophylaxis. 5. Antibiotic prophylaxis. 6. She has also completed a very low caloric high-protein diet to address underlying hepatomegaly. Past Medical History Past Medical History: Eye Disorder, GERD/Reflux, Neurologic Disorder, Osteoarthritis (OA), Sleep Apnea/CPAP/BIPAP, Thyroid Disorder Additional Past Medical History / Comment(s): RECENT ADMISSION FOR SOB AND CHEST PAIN 2-6-18, DOES NOT USE C-PAP. migraines, seasonal allergies, ALLERGY- induced asthma,RT EPI RETINAL MEMBRANE . Peptic ulcer disease with hemorrhage, HX H.Pylori, hiatal hernia, syringomyelia, sleep apnea, chronic back pain, hemorrhoids, ddd, lumbar spondylosis. recent stress test.--NEG History of Any Multi-Drug Resistant Organisms: None Reported Past Surgical History: Adenoidectomy, Bladder Surgery, Cholecystectomy, Heart Catheterization, Hysterectomy, Orthopedic Surgery, Tonsillectomy, Tubal Ligation Additional Past Surgical History / Comment(s): Monarc procedure, Pubovaginal sling, UPPP for sleep apnea , A & P repair, laparoscopic lysis of adhesion 2, left heart catheterization 2006, EGD/colonoscopy last one 02/12/15, ORIF lt foot, lt shoulder sx 02/26/15, pain clinic injections, RFA LT lower back, HEART CATH -CLEAR, RFA RT LOWER BACK 03/22/17, egd-04/09/17 Past Anesthesia/Blood Transfusion Reactions: Previous Problems w/ Anesthesia, Family History of Problems w/ Anesthesia, Motion Sickness, Postoperative Nausea & Vomiting (PONV) Additional Past Anesthesia/Blood Transfusion Reaction / Comment(s): severe N/V with anesthesia-usually even with pre op measures. SISTER, MOTHER AND BROTHER ALL HAVE SEVERE PONV WITH ANESTHESIA Smoking Status: Former smoker - Past Family History Father Family Medical History: Cancer, Myocardial Infarction (OR) Additional Family Medical History / Comment(s): AGE 78, KIDNEY CA Mother Family Medical History: Asthma, COPD, Eye Disorder, Fibromyalgia, GERD/Reflux Additional Family Medical History / Comment(s): AT AGE 1975- RESP FAILURE( PAST HEAVY SMOKER) Sister(s) Family Medical History: Hypertension Brother(s) Family Medical History: No Reported History Daughter(s) Family Medical History: Cancer Additional Family Medical History / Comment(s): cervical Son(s) Family Medical History: No Reported History Medications and Allergies Home Medications Medication Instructions Recorded Confirmed Type FLUoxetine HCL [PROzac] 80 mg PO HS 10/16/13 06/26/17 History Melatonin 10 mg PO HS 02/09/15 06/26/17 History clonazePAM [KlonoPIN] 1 mg PO HS 01/04/16 06/26/17 History traMADol HCL [Ultram] 50 mg PO HS PRN 01/04/16 06/26/17 History Butalb/APAP/Caff 50-325-40Mg 2 tab PO Q4H PRN 11/14/16 06/26/17 History [Fioricet 50-325-40] Levothyroxine Sodium 25 mcg PO QAM 11/14/16 06/26/17 History Zaleplon 10 mg PO HS 02/13/17 06/26/17 History hydrOXYzine HCL 50 mg PO HS 04/23/17 06/26/17 History Omeprazole 40 mg PO DAILY PRN 06/26/17 06/26/17 History Allergies Allergy/AdvReac Type Severity Reaction Status Date / Time codeine Allergy Severe Nausea & Verified 06/26/17 11:10 Vomiting hydrocodone bitartrate Allergy Severe Nausea & Verified 06/26/17 11:10 [From [place]] Vomiting levofloxacin [From Levaquin] Allergy Severe Nausea & Verified 06/26/17 11:10 Vomiting hydromorphone HCl Allergy seizures Verified 06/26/17 11:10 [From Dilaudid] morphine Allergy Rash/Hives Verified 06/26/17 11:10 alcohol AdvReac MIGRAINES, Verified 06/26/17 11:10 N/V, SOB ibuprofen [From Motrin] AdvReac ABD PAIN, Verified 06/26/17 11:10 ELEVATED LIVER ENZYMES, ULCERS
[~2017-07-09 09:34] MED LIST changes: +ACETAMINOPHEN IV (For NPO) 1,000 MG in EMPTY BAG 1 BAG IVPB ONE; +DEXAMETHASONE SOD PHOSPHATE 10 MG/ML 1 ML VIAL IV ONE; +HEPARIN SODIUM,PORCINE 5,000 UNIT/ML 1 ML VIAL SQ ONE; +HYDROmorphone 0.5 MG/0.5 ML SYRINGE IVP PRN; -LACTATED RINGERS 1,000 ML IV SCH; +MIDAZOLAM 2 MG/2 ML VIAL IV PRN; +PANTOPRAZOLE 40 MG/10 ML VIAL IV STA; +SCOPOLAMINE 1.5MG/72HR PATCH TRANSDERM ONE; +SCOPOLAMINE 1.5MG/72HR PATCH TRANSDERM STA; +ceFAZolin IN SWFI 2 GM/20 ML SYRINGE IVP ONE; +fentaNYL (PF) 50 MCG/ML 2 ML AMP IV PRN
[2017-07-09] MEDS: LACTATED RINGERS 1,000 ML IV SCH ×2 (10:08→10:11)
[2017-07-09] MEDS ORDERED: SCOPOLAMINE 1.5MG/72HR PATCH TRANSDERM ONE (10:08)
[2017-07-09] MEDS ORDERED: DEXAMETHASONE SOD PHOS (MDV) 100 MG/10 ML VIAL IVP ONE (10:16)
[2017-07-09] MEDS: ONDANSETRON 4 MG/2 ML VIAL IVP ONE ×2 (10:16→12:09)
[2017-07-09] MEDS ORDERED: MIDAZOLAM 2 MG/2 ML VIAL ONE (10:30)
[2017-07-09] MEDS ORDERED: NEOSTIGMINE 1 MG/ML 10 ML VIAL ONE (10:30)
[2017-07-09] MEDS ORDERED: KETOROLAC 30 MG/ML 1 ML VIAL ONE (10:30)
[2017-07-09] MEDS ORDERED: LIDOCAINE 1% INJ 10MG/ML (20 ML MDV) ONE (10:30)
[2017-07-09] MEDS ORDERED: SUCCINYLCHOLINE CHLORIDE 100 MG/5 ML SYR IV ONE (10:30)
[2017-07-09] MEDS ORDERED: PROPOFOL 10 MG/ML 20 ML VIAL IV ONE (10:30)
[2017-07-09] MEDS ORDERED: GLYCOPYRROLATE 0.2 MG/ML 2 ML VIAL ONE (10:30)
[2017-07-09] MEDS ORDERED: diphenhydrAMINE 50 MG/ML 1 ML VIAL ONE (10:30)
[2017-07-09] MEDS ORDERED: ePHEDrine SULFATE/0.9% NACL/PF 50 MG/5 ML SYRINGE IV ONE (10:30)
[2017-07-09] MEDS ORDERED: fentaNYL (PF) 50 MCG/ML 2 ML AMP ONE (10:30)
[2017-07-09] MEDS ORDERED: ROCURONIUM BROMIDE 10 MG/ML 10 ML VIAL IV ONE (10:30)
[2017-07-09] MEDS ORDERED: MIDAZOLAM 2 MG/2 ML VIAL IV ONE (10:32)
[2017-07-09] MEDS ORDERED: BUPIVACAINE (PF) 0.5% 30 ML VIAL SQ ONE (10:49)
[2017-07-09] MEDS ORDERED: NALOXONE 0.4 MG/ML 1 ML VIAL IV PRN (11:48)
[2017-07-09] MEDS ORDERED: ACETAMINOPHEN IV (For NPO) 1,000 MG in EMPTY BAG 1 BAG IVPB ONE (11:48)
--- NOTE | 2017-07-09 11:48 | P.PCN ---
Date of Procedure: 07/09/17 Preoperative Diagnosis: Gastroesophageal reflux disease, hiatal hernia Postoperative Diagnosis: Same Procedure(s) Performed: Paraesophageal midline diaphragmatic hiatal hernia with mesh, intraoperative EGD , insertion of 54-[place] bougie Implants: [place] Biopatch A 7 x 10 cm Anesthesia: KRYSTALA Surgeon: Dinora Hardy Instrument Technician #1: Vazquez Hughes Estimated Blood Loss (ml): 5 Pathology: none sent Condition: stable Disposition: floor Description of Procedure: 1. Sliding midline diaphragmatic hernia 5 x 4 cm. 2. Insertion of 54-[place] bougie
[2017-07-09] MEDS ORDERED: traMADol 50 MG TAB PO PRN ×3 (11:52→13:28)
[2017-07-09] MEDS ORDERED: HYOSCYAMINE ORAL DROPS 1.875 MG/15 ML BOTTLE PO SCH (12:00)
[2017-07-09] MEDS ORDERED: PROMETHAZINE INJ 25 MG/ML 1 ML VIAL IVPB ONE (12:27)
[2017-07-09] MEDS: SIMETHICONE 40 MG/0.6 ML DROPS 2,000 MG/30 ML BOTTLE PO SCH ×2 (13:31→23:04)
[2017-07-09] MEDS: 0.9% NACL WITH KCL 20 MEQ/L 1,000 ML IV SCH ×2 (15:31→21:19)
[2017-07-09] MEDS: AMPICILLIN-SULBACTAM 3 GM in SODIUM CHLORIDE 0.9% 100 ML IVPB SCH ×2 (17:38→23:01)
[2017-07-09] MEDS: DEXAMETHASONE SOD PHOSPHATE 4 MG/ML 1 ML VIAL IV SCH ×2 (17:40→23:03)
[2017-07-09] MEDS: ONDANSETRON 4 MG/2 ML VIAL IVP SCH ×2 (17:40→23:04)
[2017-07-09] MEDS: METOCLOPRAMIDE 5 MG/ML 2 ML VIAL IVP SCH ×2 (17:40→23:02)
[2017-07-09] MEDS: KETOROLAC 30 MG/ML 1 ML VIAL IVP PRN (19:51)
[2017-07-09] MEDS ORDERED: MELATONIN 5 MG TABLET PO SCH (21:00)
[2017-07-09] MEDS ORDERED: clonazePAM 1 MG TAB PO SCH (21:00)
[2017-07-10] MEDS: 0.9% NACL WITH KCL 20 MEQ/L 1,000 ML IV SCH (02:13)
[2017-07-10] MEDS: KETOROLAC 30 MG/ML 1 ML VIAL IVP PRN ×2 (02:14→07:54)
[2017-07-10] MEDS: DEXAMETHASONE SOD PHOSPHATE 4 MG/ML 1 ML VIAL IV SCH (06:23)
[2017-07-10] MEDS: METOCLOPRAMIDE 5 MG/ML 2 ML VIAL IVP SCH (06:23)
[2017-07-10] MEDS: SIMETHICONE 40 MG/0.6 ML DROPS 2,000 MG/30 ML BOTTLE PO SCH (06:23)
[2017-07-10] MEDS: ONDANSETRON 4 MG/2 ML VIAL IVP SCH (06:23)
[2017-07-10 06:33] LABS: Basophils % (A) 0 %; Eosinophils % (A) 0 %; HCT 38.2 % (34.0-46.0); HGB 12.6 gm/dL (11.4-16.0); Lymphocytes # (A) 0.9 k/uL (1.0-4.8); Lymphocytes % (A) 10 %; MCH 27.2 pg (25.0-35.0); MCHC 33.1 g/dL (31.0-37.0); Mean Platelet Volume 6.4; Monocytes # (A) 0.3 k/uL (0-1.0); Monocytes % (A) 4 %; Neutrophils # (A) 7.8 k/uL (1.3-7.7); Neutrophils % (A) 85 %; Platelet Count 221 k/uL (150-450); RBC 4.66 m/uL (3.80-5.40); RDW 13.5 % (11.5-15.5); WBC 9.1 k/uL (3.8-10.6)
[2017-07-10 06:50] LABS: Anion Gap 9 mmol/L; Blood Urea Nitrogen 8 mg/dL (7-17); Calcium 9.1 mg/dL (8.4-10.2); Carbon Dioxide 21 mmol/L (22-30); Chloride 110 mmol/L (98-107); Magnesium 1.8 mg/dL (1.6-2.3); Phosphorus 3.6 mg/dL (2.5-4.5); Potassium 4.4 mmol/L (3.5-5.1); Sodium 140 mmol/L (137-145)
[2017-07-10 08:55] VITALS: BP 92/55; PULSE 52; RESP 17; TEMP 97.7
[2017-07-10] MEDS ORDERED: PANTOPRAZOLE 40 MG/10 ML VIAL IV SCH (09:00)
[2017-07-10] MEDS ORDERED: ENOXAPARIN 40 MG/0.4 ML SYRINGE SQ SCH (09:00)
--- NOTE | 2017-07-10 09:22 | P.DS ---
Providers Date of admission: 07/09/17 09:34 Expected date of discharge: 07/10/17 Attending physician: Dinora Hardy Primary care physician: Caryl Soto MD Hospital Course: 52-year-old female presented to undergo surgical intervention for periesophageal hiatal hernia with gastroesophageal reflux symptoms on July 09 patient underwent periesophageal midline diaphragmatic hiatus hernia with mesh. Postop no complications. Patient was up ambulatory on the unit. Pain medication effective for pain control. The follow-through swallow eval was negative. Patient was felt to be appropriate to be discharged. Discharge diagnosis impression Severe Gastroesophageal reflux disease with hiatal hernia July 09 periesophageal midline diaphragmatic hiatus hernia with mesh repair Multiple drug ALLERGIES The above impression and plan of care have been discussed and directed by signing physician. Brisa Mars nurse practitioner acting as scribe for signing physician. Plan - Discharge Summary Discharge Rx Participant: Yes New Discharge Prescriptions: New Bisacodyl [Dulcolax] 5 mg PO DAILY PRN #10 tablet.dr PRN Reason: Constipation Ondansetron Odt [Zofran Odt] 4 mg PO Q8HR PRN #9 tab PRN Reason: Nausea Simethicone 40 mg/0.6 ml Drops [Mylicon Drops] 40 mg PO PCHS PRN #30 ml PRN Reason: Gas Ibuprofen [Motrin] 600 mg PO Q8HR PRN #30 tab PRN Reason: Pain Continue FLUoxetine HCL [PROzac] 80 mg PO HS Melatonin 10 mg PO HS clonazePAM [KlonoPIN] 1 mg PO HS traMADol HCL [Ultram] 50 mg PO HS PRN PRN Reason: Pain Levothyroxine Sodium 25 mcg PO QAM Butalb/APAP/Caff 50-325-40Mg [Fioricet 50-325-40] 2 tab PO Q4H PRN PRN Reason: MIGRAINES Zaleplon 10 mg PO HS hydrOXYzine HCL 50 mg PO HS Discontinued Omeprazole 40 mg PO DAILY PRN PRN Reason: Heartburn Discharge Medication List FLUoxetine HCL [PROzac] 80 mg PO HS 10/16/13 [History] Melatonin 10 mg PO HS 02/09/15 [History] clonazePAM [KlonoPIN] 1 mg PO HS 01/04/16 [History] traMADol HCL [Ultram] 50 mg PO HS PRN 01/04/16 [History] Butalb/APAP/Caff 50-325-40Mg [Fioricet 50-325-40] 2 tab PO Q4H PRN 11/14/16 [ History] Levothyroxine Sodium 25 mcg PO QAM 11/14/16 [History] Zaleplon 10 mg PO HS 02/13/17 [History] hydrOXYzine HCL 50 mg PO HS 04/23/17 [History] Bisacodyl [Dulcolax] 5 mg PO DAILY PRN #10 tablet. 07/10/17 [Rx] Ibuprofen [Motrin] 600 mg PO Q8HR PRN #30 tab 07/10/17 [Rx] Ondansetron Odt [Zofran Odt] 4 mg PO Q8HR PRN #9 tab 07/10/17 [Rx] Simethicone 40 mg/0.6 ml Drops [Mylicon Drops] 40 mg PO PCHS PRN #30 ml [Rx] Follow up Appointment(s)/Referral(s): Dinora Hardy MD [STAFF PHYSICIAN] - 07/17/17 Patient Instructions/Handouts: *Surgery [facility] - Scopalamine Patch Instructions Activity/Diet/Wound Care/Special Instructions: No lifting over 4 pounds in 4 weeks. Please stick to high protein diet with protein shakes. DO NOT DRINK THROUGH STRAWS OR CARBONATED BEVERAGES. Follow liquid diet for 2 weeks. May shower. NO bathtub soaks. Discharge Disposition: HOME SELF-CARE
--- NOTE | 2017-07-10 10:18 | FL ---
EXAMINATION TYPE: FL esophagus cervic/pharynx DATE OF EXAM: 07/10/2017 HISTORY: Status post Haile fundoplication COMPARISON: NONE TECHNIQUE: Single contrast technique was water-soluble contrast FINDINGS: Fluoroscopy time: 25 seconds Images: 11 Contrast: 25 mL [id number] Distal esophagus appears normal. Contrast transits through the Haile fundoplication without signific ant hesitancy. No stenosis is evident. Small amount of free air is under the right diaphragm on overhead radiographs. Contrast passes into t he proximal small bowel on the overhead radiographs. No evidence of extravasation is evident. IMPRESSION: 1. No significant stenosis or extravasation post Haile fundoplication.
--- NOTE | 2017-07-20 12:47 | P.OP ---
Date of Procedure: 07/09/17 Description of Procedure: Date of Procedure: 07/09/17 SURGEON: ILEANA MEJIA MD PREOPERATIVE DIAGNOSES: 1. Gastroesophageal reflux disease 2. Diaphragmatic midline hiatal hernia 3. Obstructive sleep apnea 4. ALLERGIES-induced asthma 5. Lumbar spondylosis 6. Syringomyelia 7. Gastric ulcers 8. Hypothyroidism 9. Depressive disorder 10. Multiple Drug ALLERGIES POSTOPERATIVE DIAGNOSES: 1. Gastroesophageal reflux disease 2. Diaphragmatic midline hiatal hernia 3. Obstructive sleep apnea 4. ALLERGIES-induced asthma 5. Lumbar spondylosis 6. Syringomyelia 7. Gastric ulcers 8. Hypothyroidism 9. Depressive disorder 10. Multiple Drug ALLERGIES OPERATION: 1. Robotic-assisted da Leo Xi laparoscopic reduction and repair of initial sliding midline paraesophageal diaphragmatic hiatal hernia, 5 x 4 cm, with Chandler Biopatch A 8 x 8 cm mesh 2. Intraoperative esophagogastroduodenoscopy 3. Intraoperative placement of 54-Indian bougie Implants: Chandler Biopatch A 7 x 10 cm Anesthesia: [employer] Programmer #1: Vazquez Hughes Estimated Blood Loss (ml): 5 Pathology: none sent Condition: stable Disposition: floor COMPLICATIONS: None. Operative Findings: 1. Sliding midline diaphragmatic hernia 5 x 4 cm. 2. Insertion of 54-Indian bougie INDICATIONS: The patient is a 52-year-old female who presents with gastroesophageal reflux and a symptomatic diaphragmatic hiatal hernia. Preoperative workup including upper endoscopy was performed. She completed an esophageal manometry. Given the severity of her symptoms, particularly of her symptomatic diaphragmatic hiatal hernia, she elected for surgical intervention. Benefits and risks including bleeding, infection, recurrence, dysphagia, injury to the lung, need for further surgery was described at length. Informed consent was obtained. DESCRIPTION: The patient was brought into the operating room and placed in supine position. Preoperatively she had received heparin subcutaneously for DVT prophylaxis. After general induction, the abdomen was prepped and draped in standard sterile fashion. The patient had previously voided prior to coming to the operating room. Ioban draping was placed along the abdomen. A timeout protocol was confirmed with the surgical team, for which the patient' s name, procedure to be performed including DVT prophylaxis with bilateral SCDs , and preoperative antibiotics were also confirmed. Robotic da Leo Xi system was prepped and primed. At 12 cm from the xiphoid to just below the umbilicus, proposed port sites were marked with indelible marker along the left axillary line, left mid-clavicular line, epigastrium and right mid-clavicular line. All ports were marked 10 cm from each other. A 5 mm 0 degrees laparoscopic trocar entry was performed along the left upper quadrant. The abdomen was insufflated to 15 mmHg pressure she tolerated well. Diagnostic laparoscopy demonstrated no injury to bowel, viscera, or mesentery. No injury had occurred to the small bowel or viscera. Next, an 8 mm robotic port was placed along the right upper abdomen. An 8-mm port was were placed along the left lateral abdominal wall. The camera 8-mm port was maintained along the epigastrium. A 12 mm port was placed along the left upper abdominal wall after exchanging the 5 mm port. Please note that the ports were placed at least 20 cm away from the target anatomy. Care was taken to check that each robotic arm was safely away from collision with the bed or the patient. At the epigastrium, a medium sized [place] liver retractor was placed under direct visualization with the [employer] placed over the right shoulder of the patient. The additional third robotic arm was used. The patient was repositioned in reverse Trendelenburg position at 14-degrees after lowering the bed. The robot was docked at the left side of the patient. Using a grasper for arm 3, a grasper for arm 1, including vessel sealer for arm 4, and the robotic system was docked and primed as described. Instruments were interchanged by the assistant banquet manager. I had sat at the console. The gastrohepatic ligament was divided to expose the hiatus. The phrenoesophageal ligament was mobilized circumferentially. Care was taken to avoid any injury to the bilateral vagi nerves. An incarcerated stomach was found along the mediastinum. Next dissection into the mediastinum was performed to the mid esophagus. The left and right birgit was identified. The hiatal hernia sac was divided to allow complete mobilization of the distal esophagus into the abdominal cavity. Care was taken to avoid any gastrotomy to the upper pole of the stomach. The measured defect was consistent with 5 cm axial length and 4 cm in width. The distal esophagus of at least 3 cm was brought into the abdominal cavity. Once the hiatus and birgit weree dissected, 2-0 VLOC suture was placed as a running suture to re-approximate the diaphragmatic hiatus posteriorly. To buttress the repair, a Chandler Biopatch A was prepared along the back table and cut to reinforce the repair as an underlay. The mesh was placed along the crural repair posteriorly then cut in half and tagged using horizontal mattress sutures using 2-0 VLOC. I went to the head of the bed to perform intraoperative esophagogastroduodenoscopy. An Olympus gastroscope was passed through posterior oropharynx, where the GE junction was found distal to the diaphragmatic hiatus. The intra-abdominal esophageal length obtained was over 3 cm. The stomach was entered. Chronic gastritis was found. Retroflexion of the scope confirmed a Hill grade 1 lower esophageal valve. The stomach had been desufflated. No evidence of leaks were found or mucosal defects of the esophagus or stomach. Next, a bougie was placed for 2 minutes to address her upper esophageal sphincter hypertension. The hiatal closure was consistent with a 54 Indian bougie. This concluded the endoscopic portion of the case. The robot was undocked from the patient. I re-scrubbed into the case. All instruments and pneumoperitoneum were evacuated from the abdominal cavity. Incisions were reapproximated using 4-0 Monocryl in an interrupted subcuticular fashion. All incisions were cleaned using dilute hydrogen peroxide. The 12-mm port site fascial defect was less than 8 mm in size. Liquid glue was applied to the skin. Local anesthetic was infiltrated in all wounds for postop analgesia. Multiple intra-abdominal films were obtained. At the end of the procedure, needle, sponge, and instrument count was verified correct by the surgical rn. The patient had tolerated the procedure well and was taken to the postanesthesia unit in stable condition. Intraoperative films were reviewed with the patient's family who were pleased with the level of care.
== END 2017-07-10 11:04 | disposition home or self-care (01) | DRG 327 ==
LOC: 2ORMAIN 09:34 → 6PED 11:43
PROVIDERS: ADMIT Surgery Plastic and Reconstructive Surgery; ATTEND Surgery Plastic and Reconstructive Surgery
PROC: 0BUT4JZ Supplement Diaphragm with Synthetic Substitute, Percutaneous Endoscopic Approach (ICD-10-PCS; principal; 2017-07-09 11:15)
PROC: 8E0W4CZ Robotic Assisted Procedure of Trunk Region, Percutaneous Endoscopic Approach (ICD-10-PCS; principal; 2017-07-09 11:15)
DX: K44.9 Diaphragmatic hernia without obstruction or gangrene (principal); G95.0 Syringomyelia and syringobulbia; J45.909 Unspecified asthma, uncomplicated; K21.9 Gastro-esophageal reflux disease without esophagitis; Z79.899 Other long term (current) drug therapy; Z80.51 Family history of malignant neoplasm of kidney; Z82.49 Family history of ischemic heart disease and other diseases of the circulatory system; Z82.5 Family history of asthma and other chronic lower respiratory diseases; Z87.11 Personal history of peptic ulcer disease; Z87.891 Personal history of nicotine dependence; Z88.9 Allergy status to unspecified drugs, medicaments and biological substances; Z90.710 Acquired absence of both cervix and uterus; Z90.49 Acquired absence of other specified parts of digestive tract; M47.816 Spondylosis without myelopathy or radiculopathy, lumbar region; G89.29 Other chronic pain; Z79.890 Hormone replacement therapy; Z88.5 Allergy status to narcotic agent; Z88.6 Allergy status to analgesic agent; Z88.8 Allergy status to other drugs, medicaments and biological substances; E03.9 Hypothyroidism, unspecified; F32.9 Major depressive disorder, single episode, unspecified; G47.33 Obstructive sleep apnea (adult) (pediatric); I10 Essential (primary) hypertension; K25.9 Gastric ulcer, unspecified as acute or chronic, without hemorrhage or perforation; K29.50 Unspecified chronic gastritis without bleeding
CPT/HCPCS: 36415; 74210; 80051; 82310; 82565; 83735; 84100; 84520; 85025; 86850; 86900; 86901

== ENCOUNTER → 2017-11-13 | Outpatient (CLI) | payer MEDICAID ==
[2017-11-12 15:20] VITALS: BMI 30.2
[2017-11-13 13:26] VITALS: BP 169/77; PULSE 57; RESP 16
--- NOTE | 2017-11-13 13:53 | P.PAINPG ---
Subjective Progress Note Date: 11/13/17 This is follow-up visit for this patient with a history of severe and chronic low back pain secondary to sacroiliitis, lumbar spondylosis with facet arthropathy, We have done an interventional pain procedure radiofrequency ablation of the sacroiliac joint, she had significant relief for more than 6 months The patient currently on severe low back pain in the buttock area and mainly on the right side, the pain is not radiated to the lower extremity, she had no numbness or tingling sensation Patient denies any side effect of the medication , patient denies any excessive drowsiness or sleepiness, patient denies any suicidal ideation, Patient reported that the current medication is helping to control the pain and improve the activity of daily livings, Patient denies any motor or sensory deficit, denies any change in the bowel movement or urination, patient denies any fever or night sweats. Objective - Vital Signs Vital signs: Vital Signs Temp Pulse 57 L 11/13/17 13:12 Resp 16 11/13/17 13:12 BP 169/77 11/13/17 13:12 Pulse Ox 100 11/13/17 13:12 Intake & Output 11/12/17 11/13/17 11/13/17 18:59 06:59 18:59 Weight 72.575 kg - Exam Physical Examinations : 1-Constitutiona : Cooperative , not in acute distress . 2-HEENT : nech ; supple , no Lymphadenopathy , normal thyroid size . eyes : no ptosis , no icterus, no photophobia . ENT : normal of hearing , normal oropharynx , no Thrush . 3- Respiratory : Chest clear to auscultations Bilaterally , no wheezing , no Rhonchi . 4- Cardiovascular : regular rate and rhythem , S1 , S2 , no S3 , no S4. 5- Gastrointestinal : abdomen soft no tenderness , bowel sounds , no organomegally . 6- Genitourinary : Defferred . 7- neurologic : Cranial nerve II to XII intact , no focal neurological deffecit . 8-psychatric : alert , oriented X 3 , appropriate affect , intact judgment and insight . 9-Lymphatic : no Lymphadenopathy . 10- musculoskeltal : Lumber spine moter stegnth lower extremities , thigh and legs 5/5 Right side , 5/5 Left side deep tendon reflexes : normal Knee Jerk , normal ankle Jerk positive lumber facet Loading Test Range of motion of the lumbar spine within normal limits strait leg raising test negative bilaterally Fabere test negative bilaterally Sever tenderness over the Sacroiliac joint on the R and L sides Assessment and Plan Plan: Assessment and plan= 1-bilateral sacroiliitis. 2-lumbar spondylosis with lumbar facet arthropathy without myelopathy. Patient had excellent pain relief for more than 6 months after the radiofrequency ablation of the sacroiliac joint, patient could benefit from repeat radiofrequency ablation of the sacroiliac joint currently most of the pain on the right side , he will be scheduled for radiofrequency on the right side and L5-S1 Dorsal ramus , the frequency of the lateral branches of S1/S2/S3 on the right side, and later on we can do the left side Time with Patient: Less than 30 PQRS Measure Charge Sheet Measure #130: Documentation of Current Meds in Medical Chart: Patient's medications documented in chart Measure #226: Tobacco Use: Screen & Cessation Intervention: Pt not a tobacco user Measure #111: Pneumonia Vaccination: Pneumococcal vaccine NOT administered or previously given Measure #47: Advance Care Plan: Advance care planning discussed & documented, pt chose/unable to give Measure #412: Opioid Treatment Agreement: No documentation of signed opioid treatment agreement Measure #408: Opioid Therapy Follow-up Evaluation: Patient had NO f/u eval minimum every 3 months during opioid therapy Measure #317: Preventitive Care & Scrn High Bld Press & F/U: Pre-hypertensive or hypertensive BP documented, pt will f/u with PCP Measure #128: Body Mass Index (BMI) Screening & Follow-up: BMI documented ABOVE normal parameters - f/u documented Measure #131: Pain Assessment & Follow-up: Pain positive & plan documented, Follow-up scheduled Measure #431: Unhealthy Alcohol Use Preventative Care & Scrn: Patient not identified as an unhealthy alcohol user PQRS Narrative: Smoking Status Former smoker Blood Pressure 169/77 Pain Intensity [Bilateral 6 Lower Back] Scale Used Numeric (1 - 10) Hx Alcohol Use (MH) No Home Medications: Ambulatory Orders FLUoxetine HCL [PROzac] 80 mg PO HS 10/16/13 Melatonin 20 mg PO HS 02/09/15 clonazePAM [KlonoPIN] 0.5 - 1 mg PO HS 01/04/16 traMADol HCL [Ultram] 50 - 100 mg PO HS PRN 01/04/16 Butalb/APAP/Caff 50-325-40Mg [Fioricet 50-325-40] 2 tab PO Q4H PRN 11/14/16 Levothyroxine Sodium 25 mcg PO QAM 11/14/16 hydrOXYzine HCL 25 - 50 mg PO HS 04/23/17 Controlled Substance Measures - Controlled Substance Measures Is patient prescribed a controlled substance at discharge?: No When asked, does pt state using other controlled substances?: No If prescribed controlled substance>3 days was MAPS reviewed?: No If Rx opioid, was Start Talking consent form obtained?: No If opioid is for acute pain is fill amount 7 days or less?: No Was information provided regarding opioid addiction?: No
== END ==
LOC: PNWHC3 12:24
PROVIDERS: ATTEND Specialist
DX: M47.816 Spondylosis without myelopathy or radiculopathy, lumbar region (principal); M46.96 Unspecified inflammatory spondylopathy, lumbar region; M46.1 Sacroiliitis, not elsewhere classified; Z87.891 Personal history of nicotine dependence; Z79.899 Other long term (current) drug therapy
CPT/HCPCS: 99211

== ENCOUNTER 2017-12-13 06:14 | Day surgery (SDC) | payer MEDICAID ==
[2017-12-07 15:35] VITALS: BMI 30.2
[~2017-12-13 06:14] MED LIST changes: -ACETAMINOPHEN IV (For NPO) 1,000 MG in EMPTY BAG 1 BAG IVPB ONE; -DEXAMETHASONE SOD PHOSPHATE 10 MG/ML 1 ML VIAL IV ONE; -HEPARIN SODIUM,PORCINE 5,000 UNIT/ML 1 ML VIAL SQ ONE; -HYDROmorphone 0.5 MG/0.5 ML SYRINGE IVP PRN; -LIDOCAINE 1% 20 ML VIAL (10MG/ML) FOR IV START INTRADERMA PRN; -MIDAZOLAM 2 MG/2 ML VIAL IV PRN; -PANTOPRAZOLE 40 MG/10 ML VIAL IV STA; -SCOPOLAMINE 1.5MG/72HR PATCH TRANSDERM ONE; -SCOPOLAMINE 1.5MG/72HR PATCH TRANSDERM STA; +SODIUM CHLORIDE 0.9% 500 ML 500 ML IV SCH; -ceFAZolin IN SWFI 2 GM/20 ML SYRINGE IVP ONE; -fentaNYL (PF) 50 MCG/ML 2 ML AMP IV PRN
[2017-12-13 06:30] VITALS: RESP 16; TEMP 98.1
[2017-12-13] MEDS ORDERED: LIDOCAINE 1% 20 ML VIAL (10MG/ML) FOR IV START INTRADERMA ONE (06:39)
[2017-12-13] MEDS ORDERED: ONDANSETRON 4 MG/2 ML VIAL IVP ONE (06:58)
[2017-12-13] MEDS ORDERED: IV FLUID CONTINUATION 1,000 ML IV ONE (07:45)
--- NOTE | 2017-12-13 07:49 | P.PCN ---
Date of Procedure: 12/13/17 Procedure(s) Performed: PREOPERATIVE DIAGNOSIS: 1-Lumbosacral spondylosis with facet arthropathy without myelopathy. 2- Bilateral sacroiliit. post operative Diagnosis: . 1-Lumbosacral spondylosis with facet arthropathy without myelopathy. 2- Bilateral sacroiliit. PROCEDURES: 1- Right radiofrequency thermocoagulation/ablation of the L5 dorsal ramus. 2- Right multi-site radiofrequency thermocoagulation/ablation of the S1, S2, S3 lateral branchs. The procedure was performed using fluoroscopic guidance during needle placement to assure proper position and maximize safety . ANESTHESIA: LOCAL ANESTHESIA = moderate sedation with intravenous versed 4 mg and Fentanyle 200 mcg EBL: NONE INDICATION/MEDICAL NECESSITY: History of low back pain secondary to bilatera sacroiliitis and lumbosacral arthropathy unresponsive to more conservative treatments. The patient reported more than 50% relief of pain symptoms following 2 previous diagnostic blocks with Bupivacaine. PROCEDURE DESCRIPTION: The patient was seen and identified in the preoperative area. Risks, benefits, complications, and alternatives were discussed with the patient. The patient agreed to proceed with the procedure and signed the consent. Vital signs were checked before and after the procedure and they remained stable. Patient ambulated to the procedure room and time out was completed. The patient was placed in the prone position on the procedure table and a pillow was placed under the abdomen to reduce lumbar lordosis. The lumbosacral area was prepped and draped in the usual sterile fashion. Critical pause was taken. L5 Dorsal Ramus RF: Using right oblique fluoroscopy, the junction of the transverse process and the superior articular process of the right S1 vertebra, which correspond to the fluoroscopic image of the "eye of the Elvis dog" was identified. Subsequently, a 10-cm 18 -gauge radiofrequency cannula with a 10-mm active tip was advanced under fluoroscopic guidance until contact was made with periosteum. At this level, the Sensory testing of the L5 dorsal ramus was performed at 50 Hz and 0 to 1 volt with production of concordant pain starting at 0.5 volt. Motor stimulation was done at 2.5 Hz with stimulation of mulitifidus muscle contration . No radicular symptoms or paresthesias were produced during the testing. Subsequently, the L5 dorsal ramus was subjected to a radiofrequency ablation at 80 degree celsius for 90 seconds . after 0.5% Bupivacaine 1 ml injected at each level after negative aspirations S1, S3, and S3 Lateral Branch RF: The Right SI Joints identified and a total of 6 radiofrequency cannula 18 gauge ,with a 10 mm active tip , placed at the medial edge of the right sacroiliac joint , starting from the inferior border of the right sacroiliac joint going superiorly , placed using AP fluoroscopy.the radiofrequency cannula ,inserted at 8-10 mm peripheral to the medial edge of the right sacroiliac joint, then , the sensory testing performed at 50 Hz and 0 to 1 volt at all the levels with production of concordant pain starting at 0.5 volt. Motor stimulation was done at 2.5 Hz. No radicular symptoms or paresthesias were produced during the testing. Subsequently, the radiofrequency ablation done for 90 seconds, at 80 degrees Celsius , total of 10 ML of proparacaine 0.5% mixed with 40 mg of Kenalog used for the procedure , ( I was not able to identify clearly the foramina of S1/S2 or S3 , because the patient had a lot of pevic gas ) COMPLICATIONS: The patient tolerated the procedure well without any acute complications. DISPOSTION/PLAN: The patient ambulated to the recovery area after the procedure in a stable condition for observation. Patient was reexamined prior to discharge. Patient was observed for 30 minutes in the recovery area and was discharged home, accompanied by an adult, after meeting discharged criteria. Discharge instructions were give to the patient by the staff. Patient was specifically instructed not to drive today and to rest for the rest of the day. The patient will schedule a follow up visit in the clinic in few weeks or earlier if needed.
[2017-12-13 08:45] VITALS: BP 126/94; PULSE 58
[2017-12-13] MEDS ORDERED: diphenhydrAMINE 50 MG/ML 1 ML VIAL IM STA (08:46)
[2017-12-13] MEDS ORDERED: diphenhydrAMINE 50 MG/ML 1 ML VIAL IM ONE (08:50)
--- NOTE | 2017-12-13 08:53 | FL ---
EXAMINATION TYPE: FL guided pain mgmt statistic DATE OF EXAM: 12/13/2017 HISTORY: Flouroscopy time 17 seconds of fluoroscopy provided. IMPRESSION: 1. Fluoroscopy time.
== END 2017-12-13 09:02 | disposition home or self-care (01) ==
LOC: ORPAIN 06:14
PROVIDERS: ATTEND Specialist
DX: M47.816 Spondylosis without myelopathy or radiculopathy, lumbar region (principal); M46.1 Sacroiliitis, not elsewhere classified; Z88.1 Allergy status to other antibiotic agents; Z88.5 Allergy status to narcotic agent; Z88.8 Allergy status to other drugs, medicaments and biological substances
CPT/HCPCS: 64635; 64636; J2250; J1200; J3301; J2405; J3010; 99152; 99153

== ENCOUNTER 2018-01-10 06:18 | Day surgery (SDC) | payer MEDICAID ==
[2018-01-08 10:59] VITALS: BMI 30.7
[2018-01-10 06:39] VITALS: TEMP 97.8
[2018-01-10] MEDS ORDERED: LACTATED RINGERS 1,000 ML IV ONE (06:44)
[2018-01-10] MEDS ORDERED: ONDANSETRON 4 MG/2 ML VIAL IVP ONE (06:44)
--- NOTE | 2018-01-10 07:26 | P.PCN ---
Date of Procedure: 01/10/18 Preoperative Diagnosis: Sacroiliitis Postoperative Diagnosis: Same Procedure(s) Performed: Left radiofrequency ablation of L5 S1 S2 and S3 Anesthesia: MAC Surgeon: Stevo Murry Description of Procedure: PREOPERATIVE DIAGNOSIS: 1. Lumbosacral Spondylosis 2. Bilateral sacroiliitis. POSTOPERATIVE DIAGNOSIS: 1-Lumbosacral spondylosis 2-Bilateral sacroiliitis. PROCEDURES: 1. Left radiofrequency thermocoagulation/ablation of the L5 dorsal ramus. 2. Left multi-site radiofrequency thermocoagulation/ablation of the S1, S2, and S3 lateral branchs. The procedure was performed using fluoroscopic guidance during needle placement to assure proper position and maximize safety. PROVIDER: Stevo Murry ANESTHESIA: Local Anesthesia, conscious sedation with Versed 2mg, Fentanyl 100 mcgs EBL: NONE INDICATION/MEDICAL NECESSITY: History of low back pain secondary left Lumbosacral Spondylosis and lumbosacral arthropathy unresponsive to more conservative treatments. The patient reported more than 50% relief of pain symptoms following 2 previous diagnostic blocks with Bupivacaine. PROCEDURE DESCRIPTION: The patient was seen and identified in the preoperative area. Risks, benefits, complications, and alternatives were discussed with the patient. The patient agreed to proceed with the procedure and signed the consent. Vital signs were checked before and after the procedure and they remained stable. Patient ambulated to the procedure room and time out was completed. The patient was placed in the prone position on the procedure table and a pillow was placed under the abdomen to reduce lumbar lordosis. The lumbosacral area was prepped and draped in the usual sterile fashion. Critical pause was taken. L5 Dorsal Ramus RF: Using left oblique fluoroscopy, the junction of the transverse process and the superior articular process of the left S1 vertebra, which correspond to the fluoroscopic image of the "eye of the Elvis dog" was identified. Subsequently, a 10-cm 22-gauge radiofrequency cannula with a 10-mm active tip was advanced under fluoroscopic guidance until contact was made with periosteum. At this level, the Sensory testing of the L5 dorsal ramus was performed at 50 Hz and 0 to 1 volt with production of concordant pain starting at 0.5 volt. Motor stimulation was done at 2 Hz with stimulation of mulitifidus muscle contration at 1.5 volts. No radicular symptoms or paresthesias were produced during the testing. Subsequently, the L5 dorsal ramus was subjected to a radiofrequency ablation at a mode of 90 seconds at 80 degrees Celsius after negative motor and sensory testing and after injecting with a solution consisting of 0.5% ropivacaine was injected. S1, S3, and S3 Lateral Branch RF: The lateral margins of the left S1, S2, and S3 foramina were identified using AP fluoroscopy. Under fluoroscopic guidance, three 10-cm 22-gauge radiofrequency cannula with a 10-mm active tip were inserted at 8-10 mm peripheral to the posterior S1 foramen, at various locations using clock-face coordinates. The center of the clock was registered at the lateral margin of the foramen. The 2:30, 4:00, and 5:30 oclock positions were used. At this level , the sensory testing of the S1 lateral branch was performed at 50 Hz and 0 to 1 volt at the three levels with production of concordant pain starting at 0.5 volt. Motor stimulation was done at 2 Hz. No radicular symptoms or paresthesias were produced during the testing. Subsequently, the S1 lateral branch was subjected to a radiofrequency ablation at a mode of 90 seconds at 80 degrees Celsius at the 3 levels after negative motor and sensory testing and after injecting a solution consisting of 0.5% ropivacaine 1 ml injected in each cannula. The same procedure was performed at the level of the S2 foramen. For the S3 foramen, only the 2:30 and 4:00 oclock positions were used. Sensory and motor testing followed by radiofrequency ablation were performed as described for the S1 and S2 foramina. The needle was withdrawn intact after each injection. COMPLICATIONS: The patient tolerated the procedure well without any acute complications. DISPOSTION/PLAN: The patient ambulated to the recovery area after the procedure in a stable condition for observation. Patient was reexamined prior to discharge. Patient was observed for 30 minutes in the recovery area and was discharged home, accompanied by an adult, after meeting discharged criteria. Discharge instructions were give to the patient by the staff. Patient was specifically instructed not to drive today and to rest for the rest of the day. The patient will schedule a follow up visit in the clinic in 4 weeks.
[2018-01-10] MEDS ORDERED: IV FLUID CONTINUATION 450 ML IV ONE (07:31)
[2018-01-10 07:38] VITALS: RESP 16
[2018-01-10 07:53] VITALS: BP 117/66; PULSE 54
--- NOTE | 2018-01-10 10:38 | FL ---
Fluoroscopy HISTORY: Pain 13 seconds fluoroscopy time supplied to the referring clinician. 1 intraoperative C-arm images docum ent the procedure. See dictated report from anesthesia.
== END 2018-01-10 08:21 | disposition home or self-care (01) ==
LOC: ORPAIN 06:18
PROVIDERS: ATTEND Hospitalist
DX: M47.817 Spondylosis without myelopathy or radiculopathy, lumbosacral region (principal); M46.1 Sacroiliitis, not elsewhere classified; Z88.6 Allergy status to analgesic agent; Z88.1 Allergy status to other antibiotic agents; Z88.5 Allergy status to narcotic agent
CPT/HCPCS: 64635; 64636; J2250; J2405; J2001; J3010; 99152

== ENCOUNTER → 2018-02-13 | Outpatient (CLI) | payer MEDICAID ==
--- NOTE | 2018-02-17 11:52 | MM ---
Reason for exam: screening (asymptomatic). Last mammogram was performed 2 years and 2 months ago. History: Patient is postmenopausal. Family history of breast cancer in paternal grandmother. Taking estrogen for 6 years beginning at age 38. MG 3D Screening Mammo W/Cad Bilateral CC and MLO view(s) were taken. Prior study comparison: December 15, 2015, bilateral MG 3d screening mammo w/cad. January 10, 2013, bilateral digital screening mammo w/CAD. There are scattered fibroglandular densities. No significant changes when compared with prior studies. ASSESSMENT: Negative, BI-RAD 1 RECOMMENDATION: Routine screening mammogram of both breasts in 1 year.
== END | disposition home or self-care (01) ==
LOC: RADMAMWWP 16:43
PROVIDERS: ATTEND Family Medicine
DX: Z12.31 Encounter for screening mammogram for malignant neoplasm of breast (principal)
CPT/HCPCS: 77063; 77067

== ENCOUNTER 2018-03-03 09:11 | Emergency (ER) | payer MEDICAID ==
[2018-03-03 09:16] VITALS: RESP 18; TEMP 98.7
--- NOTE | 2018-03-03 10:04 | ED ---
URI HPI - General Chief Complaint: Upper Respiratory Infection Stated Complaint: cough, fever Time Seen by Provider: 03/03/18 09:57 Source: patient, RN notes reviewed, old records reviewed Mode of arrival: ambulatory Limitations: no limitations - History of Present Illness Initial Comments: Patient is a 32-year-old female with multiple complaints. She states that she has body aches upper a story symptoms including earache sore throat. She points of fatigue.. Patient states that her symptoms have been going on for the past 5 days. Patient states that she has had no nausea or vomiting. S she denies dysuria. She has had multiple symptoms of diarrhea. She reports her has had high fevers and body aches. She states she went to urgent care on Sunday and had a negative influenza test. - Related Data Home Medications Medication Instructions Recorded Confirmed FLUoxetine HCL [PROzac] 80 mg PO HS 10/16/13 03/03/18 Melatonin 20 - 30 mg PO HS 02/09/15 03/03/18 traMADol HCL [Ultram] 50 - 100 mg PO HS PRN 01/04/16 03/03/18 Butalb/APAP/Caff 50-325-40Mg 2 tab PO Q4H PRN 11/14/16 03/03/18 [Fioricet 50-325-40] Levothyroxine Sodium 25 mcg PO QAM 11/14/16 03/03/18 SUMAtriptan SUCCINATE [Imitrex] 100 mg PO DAILY PRN 01/08/18 03/03/18 Vitamin C/Biotin [Hair, Skin and 2 tab PO DAILY 01/08/18 03/03/18 Nails] Zolpidem [Ambien] 5 - 10 mg PO HS 01/08/18 03/03/18 hydrOXYzine HCL 50 mg PO HS 01/08/18 03/03/18 Baclofen [Lioresal] 10 mg PO HS 03/03/18 03/03/18 traZODone HCL 50 mg PO HS 03/03/18 03/03/18 Previous Rx's Medication Instructions Recorded Albuterol Inhaler [Ventolin Hfa 1 - 2 puff INHALATION RT-Q6H PRN 03/03/18 Inhaler] #1 inhaler Azithromycin [Zithromax Z-pack] 250 mg PO DIRECTED #6 tab 01/27/19 methylPREDNISolone Dose Pack 4 mg PO DIRECTED #21 package 03/03/18 [Medrol Dose Pack] Allergies Allergy/AdvReac Type Severity Reaction Status Date / Time codeine Allergy Severe Nausea & Verified 03/03/18 11:32 Vomiting hydrocodone bitartrate Allergy Severe Nausea & Verified 03/03/18 11:32 [From [place]] Vomiting levofloxacin [From Levaquin] Allergy Severe Nausea & Verified 03/03/18 11:32 Vomiting hydromorphone HCl Allergy seizures Verified 03/03/18 11:32 [From Dilaudid] morphine Allergy Rash/Hives Verified 03/03/18 11:32 alcohol AdvReac MIGRAINES, Verified 03/03/18 11:32 N/V, SOB ibuprofen [From Motrin] AdvReac ABD PAIN, Verified 03/03/18 11:32 ELEVATED LIVER ENZYMES, ULCERS Review of Systems ROS Statement: Those systems with pertinent positive or pertinent negative responses have been documented in the HPI. ROS Other: All systems not noted in ROS Statement are negative. Past Medical History Past Medical History: Eye Disorder, GERD/Reflux, Neurologic Disorder, Osteoarthritis (OA), Sleep Apnea/CPAP/BIPAP, Thyroid Disorder Additional Past Medical History / Comment(s): DOES NOT USE C-PAP,migraines, seasonal allergies, ALLERGY-induced asthma,RT EPI RETINAL MEMBRANE . Peptic ulcer disease with hemorrhage, HX H.Pylori, syringomyelia, sleep apnea, chronic back pain, hemorrhoids, ddd, lumbar spondylosis. recent stress test.-- NEG History of Any Multi-Drug Resistant Organisms: None Reported Past Surgical History: Adenoidectomy, Bladder Surgery, Cholecystectomy, Heart Catheterization, Hernia Repair, Hysterectomy, Orthopedic Surgery, Tonsillectomy , Tubal Ligation Additional Past Surgical History / Comment(s): [place] procedure, Pubovaginal sling, UPPP for sleep apnea , A & P repair, laparoscopic lysis of adhesion 2, left heart catheterization 2006, EGD/colonoscopy last one 02/12/15, ORIF lt foot, lt shoulder sx 02/26/15, pain clinic injections, RFA LT lower back, HEART CATH -CLEAR, RFA RT LOWER BACK 03/22/17, 12/13/17, egd-04/09/17, HIATAL HERNIA REPAIR 07/09/17 Past Anesthesia/Blood Transfusion Reactions: Previous Problems w/ Anesthesia, Family History of Problems w/ Anesthesia, Motion Sickness, Postoperative Nausea & Vomiting (PONV) Additional Past Anesthesia/Blood Transfusion Reaction / Comment(s): HAD TO HAVE BENADRYL AFTER LAST PAIN PROCEDURE (12/13/17) FOR SEVERE ITCHING. severe N/V with anesthesia-usually even with pre op measures. SISTER, MOTHER AND BROTHER ALL HAVE SEVERE PONV WITH ANESTHESIA Past Psychological History: Anxiety, Depression Smoking Status: Former smoker Past Alcohol Use History: None Reported Past Drug Use History: None Reported - Past Family History Father Family Medical History: Cancer, Myocardial Infarction (ID) Additional Family Medical History / Comment(s): AGE 79, KIDNEY CA Mother Family Medical History: Asthma, COPD, Eye Disorder, Fibromyalgia, GERD/Reflux Additional Family Medical History / Comment(s): AT AGE 75- RESP FAILURE( PAST HEAVY SMOKER) Sister(s) Family Medical History: Hypertension Brother(s) Family Medical History: No Reported History Daughter(s) Family Medical History: Cancer Additional Family Medical History / Comment(s): cervical Son(s) Family Medical History: No Reported History General Exam - General Exam Comments Initial Comments: Report a 52-year-old female. No distress. Limitations: no limitations General appearance: alert, in no apparent distress Head exam: Present: atraumatic, normocephalic, normal inspection Eye exam: Present: normal appearance, PERRL, EOMI. Absent: scleral icterus, conjunctival injection, periorbital swelling ENT exam: Present: normal exam, mucous membranes moist Neck exam: Present: normal inspection. Absent: tenderness, meningismus, lymphadenopathy Respiratory exam: Present: wheezes (slight). Absent: normal lung sounds bilaterally, respiratory distress, rales, rhonchi, stridor Cardiovascular Exam: Present: regular rate, normal rhythm, normal heart sounds. Absent: systolic murmur, diastolic murmur, rubs, gallop, clicks GI/Abdominal exam: Present: soft, normal bowel sounds. Absent: distended, tenderness, guarding, rebound, rigid Extremities exam: Present: normal inspection, full ROM, normal capillary refill. Absent: tenderness, pedal edema, joint swelling, calf tenderness Back exam: Present: normal inspection Neurological exam: Present: alert, oriented X3, CN II-XII intact Psychiatric exam: Present: normal affect, normal mood Skin exam: Present: warm, dry, intact, normal color. Absent: rash Course Vital Signs 03/03/18 03/03/18 03/03/18 09:14 10:33 10:46 Temperature 98.7 F Pulse Rate 94 92 96 Respiratory 18 Rate Blood Pressure 108/75 O2 Sat by Pulse 97 Oximetry 03/03/18 12:28 Temperature Pulse Rate 63 Respiratory 18 Rate Blood Pressure 103/53 O2 Sat by Pulse 98 Oximetry Medical Decision Making - Medical Decision Making 52-year-old female presents today with complaints of bodyaches generalized fever fatigue. She is complaint of a cough. She has a negative flu test. Patient has been is also being seen in the emergency department. Patient states chest x-ray shows evidence of basilar atelectasis. Concern for early pneumonia. Patient was given IM Rocephin. On reevaluation she states she still just did not feel well and requested to have IV fluids. I agreed and offered to start an IV on the Patient with fluids. After Patient had a prolonged wait due to nursing staff being very busy Patient did not receive the IV with fluids and states she just preferred to go home after an IM injection. Patient will be discharged with antibiotic, azithromycin, steroids and inhaler. Discussed following up with PCP. - Lab Data Lab Results 03/03/18 Range/Units 10:20 Influenza Type A RNA Not Detected (Not Detectd) Influenza Type B (PCR) Not Detected (Not Detectd) - Radiology Data Radiology results: report reviewed Probable basilar atelectasis. Expiratory rotate exam. Follow-up is recommended. Disposition Clinical Impression: Pneumonia Disposition: HOME SELF-CARE Condition: Good Instructions (If sedation given, give patient instructions): Pneumonia (ED) Additional Instructions: Patient is to rest, take the medications as prescribed. Encouraged fluid intake. Return to the emergency department if any alarming signs or symptoms occur. Prescriptions: Albuterol Inhaler [Ventolin Hfa Inhaler] 1 - 2 puff INHALATION RT-Q6H PRN #1 inhaler PRN Reason: Shortness Of Breath Azithromycin [Zithromax Z-pack] 250 mg PO DIRECTED #6 tab methylPREDNISolone Dose Pack [Medrol Dose Pack] 4 mg PO DIRECTED #21 package Is patient prescribed a controlled substance at d/c from ED?: No Referrals: Caryl Soto MD [Primary Care Provider] - 1-2 days Time of Disposition: 11:12
[2018-03-03] MEDS ORDERED: ALBUTEROL NEBULIZED 2.5 MG/3 ML INHALATION STA (10:12)
[2018-03-03] MEDS ORDERED: ACETAMINOPHEN TAB 500 MG TAB PO STA (10:13)
--- NOTE | 2018-03-03 11:10 | XR ---
EXAMINATION TYPE: XR chest 2V DATE OF EXAM: 03/03/2018 COMPARISON: Prior chest x-ray 03/13/2017 HISTORY: Fever, pain TECHNIQUE: Frontal and lateral views of the chest are obtained. FINDINGS: Lung volumes are low and the patient is rotated. Heart size is likely stable. No pneumotho rax or pleural effusion. Patchy basilar density is noted. IMPRESSION: Probable basilar atelectasis. Expiratory rotated exam. Follow-up is recommended.
[2018-03-03] MEDS ORDERED: cefTRIAXone 1,000 MG VIAL (IM USE) IM STA (11:12)
[2018-03-03] MEDS ORDERED: methylPREDNISolone SOD SUCCI 125 MG/2 ML VIAL IV STA (11:22)
[2018-03-03] MEDS ORDERED: SODIUM CHLORIDE 0.9% 1,000 ML IV ONE (11:22)
[2018-03-03 12:59] VITALS: BP 103/53; PULSE 63
== END 2018-03-03 12:28 | disposition home or self-care (01) ==
LOC: EC 09:11
DX: J18.9 Pneumonia, unspecified organism (principal); J98.11 Atelectasis; G47.30 Sleep apnea, unspecified; F41.9 Anxiety disorder, unspecified; F32.9 Major depressive disorder, single episode, unspecified; E07.9 Disorder of thyroid, unspecified; Z79.899 Other long term (current) drug therapy; Z79.890 Hormone replacement therapy; Z88.5 Allergy status to narcotic agent; Z88.1 Allergy status to other antibiotic agents; Z88.6 Allergy status to analgesic agent; Z91.048 Other nonmedicinal substance allergy status; Z95.5 Presence of coronary angioplasty implant and graft; Z87.891 Personal history of nicotine dependence
CPT/HCPCS: 94640; 87502; 71046; 99284; 96372; J0696

== ENCOUNTER → 2018-03-11 | Outpatient (CLI) | payer MEDICAID ==
--- NOTE | 2018-03-11 13:43 | XR ---
EXAMINATION TYPE: XR chest 2V DATE OF EXAM: 03/11/2018 COMPARISON: 01/13/2017, 03/13/2017 TECHNIQUE: PA and lateral views submitted. HISTORY: Cough FINDINGS: The lungs are clear and there is no pneumothorax, pleural effusion, or focal pneumonia. Postsurgica l change overlying the right upper quadrant. Hypertrophic and degenerative change of the spine. No ov ert failure. IMPRESSION: 1. No acute process.
== END | disposition home or self-care (01) ==
LOC: RADXRMAIN 13:17
PROVIDERS: ATTEND Family Medicine
DX: J18.9 Pneumonia, unspecified organism (principal)
CPT/HCPCS: 71046

== ENCOUNTER → 2018-06-27 | Outpatient (CLI) | payer MEDICAID ==
[2018-06-27 10:39] LABS: Basophils % (A) 1 %; Eosinophils # (A) 0.3 k/uL (0-0.7); Eosinophils % (A) 6 %; HGB 13.6 gm/dL (11.4-16.0); Lymphocytes # (A) 1.8 k/uL (1.0-4.8); Lymphocytes % (A) 35 %; MCH 25.8 pg (25.0-35.0); MCHC 31.5 g/dL (31.0-37.0); MCV 81.9 fL (80.0-100.0); Mean Platelet Volume 6.1; Monocytes # (A) 0.3 k/uL (0-1.0); Monocytes % (A) 6 %; Neutrophils # (A) 2.7 k/uL (1.3-7.7); Neutrophils % (A) 51 %; Platelet Count 308 k/uL (150-450); RBC 5.25 m/uL (3.80-5.40); RDW 14.3 % (11.5-15.5); WBC 5.3 k/uL (3.8-10.6)
[2018-06-27 18:21] LABS: Albumin 4.3 g/dL (3.80-4.90); Albumin/Globulin Ratio 2.39 (1.60-3.17); Anion Gap 7.9 mmol/L (4.00-12.00); Carbon Dioxide 24.1 mmol/L (21.6-31.8); Globulin 1.8 g/dL (1.6-3.3); LDL Cholesterol,Calculated 109.6 mg/dL (0.0-131.0); Magnesium 1.9 mg/dL (1.5-2.4); Potassium 4.7 mmol/L (3.5-5.5); Total Bilirubin 0.3 mg/dL (0.3-1.2); Total Protein 6.1 g/dL (6.2-8.2); VLDL Calculation 13.4 mg/dL (5.00-40.00)
== END | disposition home or self-care (01) ==
LOC: LABWHC1 09:16
PROVIDERS: ATTEND Family Medicine
DX: Z00.00 Encounter for general adult medical examination without abnormal findings (principal); G43.909 Migraine, unspecified, not intractable, without status migrainosus; R05 Cough; E03.9 Hypothyroidism, unspecified
CPT/HCPCS: 36415; 80053; 80061; 83735; 84436; 84443; 85025

== ENCOUNTER → 2019-04-11 | Outpatient (CLI) | payer MEDICAID ==
[2019-04-11 09:38] LABS: Basophils % (A) 0 %; Eosinophils # (A) 0.2 k/uL (0-0.7); Eosinophils % (A) 3 %; HCT 42.8 % (34.0-46.0); Lymphocytes # (A) 1.7 k/uL (1.0-4.8); Lymphocytes % (A) 30 %; MCH 26.3 pg (25.0-35.0); MCHC 32.7 g/dL (31.0-37.0); MCV 80.4 fL (80.0-100.0); Mean Platelet Volume 6.5; Monocytes # (A) 0.4 k/uL (0-1.0); Monocytes % (A) 7 %; Neutrophils # (A) 3.3 k/uL (1.3-7.7); Neutrophils % (A) 58 %; Platelet Count 310 k/uL (150-450); RBC 5.32 m/uL (3.80-5.40); RDW 13.7 % (11.5-15.5); WBC 5.7 k/uL (3.8-10.6)
[2019-04-11 16:23] LABS: African American GFR (CKD) 66.4 (60.0-200.0); Albumin 4.3 g/dL (3.80-4.90); Albumin/Globulin Ratio 2.26 (1.60-3.17); Anion Gap 9.2 mmol/L (4.00-12.00); Calcium 9.2 mg/dL (8.7-10.3); Carbon Dioxide 24.8 mmol/L (21.6-31.8); Chol/HDL Ratio 2.1; Globulin 1.9 g/dL (1.6-3.3); LDL Cholesterol,Calculated 100.8 mg/dL (0.0-131.0); Non-African American GFR(CKD) 57.3 (60.0-200.0); Potassium 4.4 mmol/L (3.5-5.5); Total Bilirubin 0.4 mg/dL (0.3-1.2); Total Protein 6.2 g/dL (6.2-8.2); VLDL Calculation 10.2 mg/dL (5.00-40.00)
[2019-04-11 16:30] LABS: T4, Free (Free Thyroxine) 1.4 ng/dL (0.80-1.80)
== END | disposition home or self-care (01) ==
LOC: LABWHC1 08:23
PROVIDERS: ATTEND Nurse Practitioner Family
DX: I10 Essential (primary) hypertension (principal); E87.8 Other disorders of electrolyte and fluid balance, not elsewhere classified; E78.5 Hyperlipidemia, unspecified; R53.83 Other fatigue; E03.9 Hypothyroidism, unspecified; R79.9 Abnormal finding of blood chemistry, unspecified
CPT/HCPCS: 36415; 80053; 80061; 84439; 84443; 85025

== ENCOUNTER → 2019-08-11 | Outpatient (CLI) | payer MEDICAID ==
--- NOTE | 2019-08-13 13:29 | MM ---
Reason for exam: screening (asymptomatic). Last mammogram was performed 1 year and 6 months ago. History: Patient is postmenopausal. Family history of breast cancer in paternal grandmother. Took estrogen for 6 years beginning at age 38. Physical Findings: A clinical breast exam by your physician is recommended on an annual basis and results should be correlated with mammographic findings. MG 3D Screening Mammo W/Cad Bilateral CC and MLO view(s) were taken. Prior study comparison: February 13, 2018, bilateral MG 3d screening mammo w/cad. December 15, 2015, bilateral MG 3d screening mammo w/cad. There are scattered fibroglandular densities. There is chronic nodularity in the right breast laterally, likely small intramammary node and in the left breast anteriorly. No significant changes when compared with prior studies. ASSESSMENT: Benign, BI-RAD 2 RECOMMENDATION: Routine screening mammogram of both breasts in 1 year.
== END | disposition home or self-care (01) ==
LOC: RADMAMWWP 16:16
PROVIDERS: ATTEND Nurse Practitioner Family
DX: Z12.31 Encounter for screening mammogram for malignant neoplasm of breast (principal)
CPT/HCPCS: 77063; 77067

== ENCOUNTER → 2019-11-17 | Outpatient (CLI) | payer MEDICAID ==
[2019-11-17 08:53] VITALS: BP 120/80; PULSE 69; RESP 16; TEMP 98
--- NOTE | 2019-11-17 09:26 | P.PN ---
Subjective Progress Note Date: 11/17/19 This is a 54-year-old lady with recent history of right neck pain with radiation to the right shoulder with no numbness or tingling in the right arm or any weakness in the upper extremities. She also denies any bowel or bladder dysfunction. She does use tramadol on her Fioricet for her pain. This pain g ets worse when she lies on her right side. It also gets worse with neck movement. The patient has a history of spinal cord syrinx extending from the cervical to the lumbar area, However there are no neurologic changes. Patient denies new-onset weakness, bowel/bladder incontinence, or any other signs or symptoms of cauda equina syndrome. There are no signs of acute intoxication, and no indications of medication diversion or overuse. In addition to above, 13-point review of systems is also negative for chest pain, shortness of breath, changes in vision, changes in hearing, new onset weakness, abdominal pain, diarrhea, extreme fatigue, malaise, fever, skin changes, homicidal or suicidal ideation, or bowel or bladder incontinence. Vital Signs: Reviewed in EMR Gen: AAOx3, NAD HEENT: PERRLA,hearing grossly normal Pulm: resp unlabored Neck: supple, trachea midline Neuro exam of the upper extremities: Normal muscle strength and deep tendon refl exes bilaterally and symmetrically Mild tenderness in the cervical paravertebral musculature on the right side. Mildly decreased range of motion of the cervical spine especially for right rotation. Neuro: CN II-XII grossly intact, Imaging: Reviewed in EMR/chart Assessment: Cervical spondylosis without myelopathy Spinal cord syrinx Plan: 1. Explanation: Opioid and psychological risk scores were reviewed. Diagnoses, prognoses, and multiple treatment options including but not limited to physical therapy, interventional therapies, adjuvant medical therapies, narcotic medication therapies, and surgery were discussed with the patient and all questions were answered to the patient's satisfaction. 2. Opioid agreement: Signed with the patient and the patient is warned not to use opioids while driving or before driving and not to combine opioids with benzodiazepines or alcohol. 3. Counseling: The patient was counseled extensively on SMOKING CESSATION, BODY MASS INDEX, EXERCISE. Specifically, the patient was instructed regarding the importance of smoking cessation, obesity, and exercise in the context of both chronic pain and overall health. 4. Procedures: Scheduled for diagnostic cervical medial branch block under fluoroscopic guidance for levels C4, C5, and C6 5. Consultations: None 6. Investigations: None 7. Medications: None prescribed today 8. Disposition: Return to the above mentioned procedure as soon as possible 9. Maps were reviewed and were appropriate. Objective - Vital Signs Vital signs: Vital Signs Temp 98 F 11/17/19 08:41 Pulse 69 11/17/19 08:41 Resp 16 11/17/19 08:41 BP 120/80 11/17/19 08:41 Pulse Ox
== END | disposition home or self-care (01) ==
LOC: PNWHC3 08:33
PROVIDERS: ATTEND Anesthesiology
DX: M47.812 Spondylosis without myelopathy or radiculopathy, cervical region (principal); G95.0 Syringomyelia and syringobulbia
CPT/HCPCS: 99211

== ENCOUNTER 2019-12-19 08:05 | Day surgery (SDC) | payer MEDICAID ==
[2019-12-17 15:46] VITALS: BMI 28.8
[~2019-12-19 08:05] MED LIST changes: +LACTATED RINGERS 1,000 ML IV SCH; -SODIUM CHLORIDE 0.9% 500 ML 500 ML IV SCH
[2019-12-19] MEDS ORDERED: ONDANSETRON 4 MG/2 ML VIAL ONE (08:44)
[2019-12-19 08:45] VITALS: TEMP 97.4
[2019-12-19] MEDS ORDERED: ONDANSETRON 4 MG/2 ML VIAL IVP ONE (08:48)
[2019-12-19] MEDS ORDERED: DEXAMETHASONE SOD PHOSPHATE 10 MG/ML 1 ML VIAL ONE (09:13)
[2019-12-19] MEDS ORDERED: ROPIVACAINE 5MG/ML 20ML VIAL ONE (09:13)
[2019-12-19] MEDS ORDERED: PROPOFOL 10 MG/ML 20 ML VIAL IV ONE (09:13)
[2019-12-19] MEDS ORDERED: MIDAZOLAM 2 MG/2 ML VIAL ONE (09:13)
[2019-12-19] MEDS ORDERED: fentaNYL (PF) 50 MCG/ML 2 ML AMP ONE (09:13)
--- NOTE | 2019-12-19 09:32 | P.PCN ---
Date of Procedure: 12/19/19 Surgeon: Jaylon Frank Description of Procedure: PREOPERATIVE DIAGNOSIS: Cervical Spondylosis with Facet Arthropathy,without myelopathy POSTOPERATIVE DIAGNOSIS: Cervical Spondylosis Facet Arthropathy, Without myelopathy PROCEDURES: Diagnostic Right C4,5,6 medial branchs block with fluoroscopic guidance ANESTHESIA: Local with 1% lidocaine; IV sedation by anesthesia services EBL: Minimal PROCEDURE INDICATION: The patient with neck pain secondary to cervical arthropat hy unresponsive to more conservative treatments. PROCEDURE DESCRIPTION / TECHNIQUE: The patient was seen and identified in the preoperative area. Risks, benefits, complications, and alternatives were discussed with the patient, the patient agreed to proceed with the procedure and signed the consent. IV was started. Vital signs remained stable throughout the procedure. Patient was taken to the OR and time out was completed. The patient was placed in the supine position on the procedure table. . The cervical area was prepped with chloraprep and draped in the usual sterile fashion. Critical pause was taken. Vital signs were closely monitored during the procedure. Conscious sedation was used during the procedure to decrease patients anxiety. Using cross-table lateral fluoroscopy, the center of the trapezoid of C4 , C5,C6 was identified, marked, and localized with 1% lidocaine 1 ml at each level for skin and Sub Q infiltrations . Subsequently, a 25 G 3.5 inch spinal needle was advanced guided by fluoroscopy to the centroid of the trapezoid . Subsequently, 3 ml of preservative-free Ropivacaine 0.5% mixed with Dexamethasone 10 mg and 1 ml of the mixture was injected at each level after negative aspiration for blood and CSF. [place] were then removed intact . COMPLICATIONS: No acute complications. COMMENTS: X-ray images were saved to the C-arm machine DISPOSITION / PLANS: The patient was placed in a supine position and transferred to the recovery area in a stable condition for observation and was discharged from the recovery room after meeting discharge criteria. Home discharge instructions given to the patient by the staff. The patient was reexamined prior to discharge. The patient will schedule a follow up in the clinic in 2-4 weeks
[2019-12-19] MEDS ORDERED: IV FLUID CONTINUATION 700 ML IV ONE (09:36)
[2019-12-19 09:42] VITALS: RESP 18
--- NOTE | 2019-12-19 09:53 | FL ---
EXAMINATION TYPE: FL guided pain mgmt statistic DATE OF EXAM: 12/19/2019 HISTORY: Fluoroscopy time 9 seconds of fluoroscopy provided. IMPRESSION: 1. Fluoroscopy time.
[2019-12-19 09:56] VITALS: BP 105/68; PULSE 69
== END 2019-12-19 10:20 | disposition home or self-care (01) ==
LOC: ORPAIN 08:05
PROVIDERS: ATTEND Anesthesiology
DX: M47.812 Spondylosis without myelopathy or radiculopathy, cervical region (principal); Z88.5 Allergy status to narcotic agent; G47.33 Obstructive sleep apnea (adult) (pediatric); M19.90 Unspecified osteoarthritis, unspecified site; E07.9 Disorder of thyroid, unspecified; K21.9 Gastro-esophageal reflux disease without esophagitis; Z88.1 Allergy status to other antibiotic agents; Z79.890 Hormone replacement therapy; Z79.899 Other long term (current) drug therapy
CPT/HCPCS: 64490; 64491; J2250; J1100; J2405; J3010; J2704; J2795

== ENCOUNTER 2020-01-23 07:17 | Day surgery (SDC) | payer MEDICAID ==
[2020-01-20 10:19] VITALS: BMI 28.6
[2020-01-23 08:09] VITALS: TEMP 97.8
[2020-01-23] MEDS ORDERED: LACTATED RINGERS 1,000 ML IV ONE (08:09)
[2020-01-23] MEDS ORDERED: ONDANSETRON 4 MG/2 ML VIAL ONE (08:32)
[2020-01-23] MEDS ORDERED: KETOROLAC 15 MG/ML 1 ML VIAL ONE ×2 (08:50→09:16)
[2020-01-23] MEDS ORDERED: ROPIVACAINE 5MG/ML 20ML VIAL ONE (08:50)
[2020-01-23] MEDS ORDERED: PROPOFOL 10 MG/ML 20 ML VIAL IV ONE (08:50)
[2020-01-23] MEDS ORDERED: MIDAZOLAM 2 MG/2 ML VIAL ONE (08:50)
[2020-01-23] MEDS ORDERED: DEXAMETHASONE SOD PHOSPHATE 10 MG/ML 1 ML VIAL ONE (08:50)
--- NOTE | 2020-01-23 09:06 | P.PCN ---
Date of Procedure: 01/23/20 Surgeon: Jaylon Frank Pathology: none sent Condition: stable Disposition: PACU Description of Procedure: Description of Procedure: PREOPERATIVE DIAGNOSIS: Cervical Spondylosis with Facet Arthropathy without myelopathy POSTOPERATIVE DIAGNOSIS: Cervical Spondylosis Facet Arthropathy Without myelopathy PROCEDURES: Diagnostic Right C4,5,6 medial branchs block with fluoroscopic guidance ANESTHESIA: Local with 1% lidocaine; IV sedation by anesthesia services EBL: Minimal PROCEDURE INDICATION: The patient with neck pain secondary to cervical arthropathy unresponsive to more conservative treatments. PROCEDURE DESCRIPTION / TECHNIQUE: The patient was seen and identified in the preoperative area. Risks, benefits, complications, and alternatives were discussed with the patient, the patient agreed to proceed with the procedure and signed the consent. IV was started. Vital signs remained stable throughout the procedure. Patient was taken to the OR and time out was completed. The patient was placed in the supine position on the procedure table. . The cervical area was prepped with chloraprep and draped in the usual sterile fashion. Critical pause was taken. Vital signs were closely monitored during the procedure. Conscious sedation was used during the procedure to decrease patients anxiety. Using cross-table lateral fluoroscopy, the center of the trapezoid of C4 , C5,C6 was identified, marked, and localized with 1% lidocaine 1 ml at each level for skin and Sub Q infiltrations . Subsequently, a 25 G 3.5 inch spinal needle was advanced guided by fluoroscopy to the centroid of the trapezoid . Subsequently, 3 ml of preservative-free Ropivacaine 0.5% mixed with Dexamethasone 10 mg and 1 ml of the mixture was injected at each level after negative aspiration for blood and CSF. [place] were then removed intact . COMPLICATIONS: No acute complications. COMMENTS: X-ray images were saved to the C-arm machine DISPOSITION / PLANS: The patient was placed in a supine position and transferred to the recovery area in a stable condition for observation and was discharged from the recovery room after meeting discharge criteria. Home discharge instructions given to the patient by the staff. The patient was reexamined prior to discharge. The patient will schedule a follow up in the clinic in 2-4 weeks
[2020-01-23 09:12] VITALS: RESP 16
[2020-01-23 09:27] VITALS: BP 118/81; PULSE 60
[2020-01-23] MEDS ORDERED: IV FLUID CONTINUATION 1,000 ML IV ONE (09:27)
--- NOTE | 2020-01-23 09:34 | FL ---
EXAMINATION TYPE: FL guided pain mgmt statistic DATE OF EXAM: 01/23/2020 HISTORY: Fluoroscopy time 8 seconds of fluoroscopy provided. IMPRESSION: 1. Fluoroscopy time.
== END 2020-01-23 09:57 | disposition home or self-care (01) ==
LOC: ORPAIN 07:17
PROVIDERS: ATTEND Anesthesiology
DX: M47.812 Spondylosis without myelopathy or radiculopathy, cervical region (principal); E07.9 Disorder of thyroid, unspecified; F32.9 Major depressive disorder, single episode, unspecified; Z88.5 Allergy status to narcotic agent; Z79.890 Hormone replacement therapy; Z79.899 Other long term (current) drug therapy; Z90.710 Acquired absence of both cervix and uterus; Z90.49 Acquired absence of other specified parts of digestive tract; Z98.890 Other specified postprocedural states
CPT/HCPCS: 64490; 64491; 64492; J2250; J1100; J2405; J1885; J2704; J2795

== ENCOUNTER → 2020-02-11 | Outpatient (CLI) | payer MEDICAID ==
[2020-02-11 12:47] VITALS: BP 125/82; PULSE 74; RESP 18; TEMP 98.7
--- NOTE | 2020-02-11 12:52 | P.PN ---
Subjective Progress Note Date: 02/11/20 This is a 54-year-old lady with history of chronic axial neck pain with occasional tingling in the right hand when the pain gets severe. The patient had a diagnostic cervical medial branch block for levels C4, C5 and C6 on the right side. The patient had 75% of pain relief immediately after the procedure which lasted for a day and a half as she states. The patient denies any constant paresthesia in the upper extremities or any weakness. Patient denies new-onset weakness, bowel/bladder incontinence, or any other signs or symptoms of cauda equina syndrome. There are no signs of acute intoxication, and no indications of medication diversion or overuse. In addition to above, 13-point review of systems is also negative for chest pain, shortness of breath, changes in vision, changes in hearing, new onset weakness, abdominal pain, diarrhea, extreme fatigue, malaise, fever, skin changes, homicidal or suicidal ideation, or bowel or bladder incontinence. Vital Signs: Reviewed in EMR Gen: AAOx3, NAD HEENT: PERRLA,hearing grossly normal Pulm: resp unlabored Neck: supple, trachea midline. Slightly decreased range of motion of the cervical spine for right rotation especially. Neuro exam of the lower extremities: Normal muscle strength in the upper ex tremities bilaterally and symmetrically Straight leg raising test: Bon's test: Range of motion of the lumbar spine: Facet loading test: Tenderness in the paravertebral musculature: Mild tenderness in the cervical paravertebral musculature on the right side Neuro: CN II-XII grossly intact, Imaging: Reviewed in EMR/chart Assessment: Cervical spondylosis without myelopathy Plan: 1. Explanation: Opioid and psychological risk scores were reviewed. Diagnoses, prognoses, and multiple treatment options including but not limited to physical therapy, interventional therapies, adjuvant medical therapies, narcotic medication therapies, and surgery were discussed with the patient and all questions were answered to the patient's satisfaction. 2. Opioid agreement: Signed with the patient and the patient is warned not to use opioids while driving or before driving and not to combine opioids with benzodiazepines or alcohol. 3. Counseling: The patient was counseled extensively on SMOKING CESSATION, BODY MASS INDEX, EXERCISE. Specifically, the patient was instructed regarding the importance of smoking cessation, obesity, and exercise in the context of both chronic pain and overall health. 4. Procedures: Scheduled for cervical medial branch RFA on the right side for levels C4, C5, and C6 under fluoroscopic guidance 5. Consultations: None 6. Investigations: None 7. Medications: None 8. Disposition: Return to the above-mentioned procedure as soon as possible 9. Maps were reviewed and were appropriate. Objective - Vital Signs Vital signs: Vital Signs Temp 98.7 F 02/11/20 12:39 Pulse 74 02/11/20 12:39 Resp 18 02/11/20 12:39 BP 125/82 02/11/20 12:39 Pulse Ox 99 02/11/20 12:39
== END | disposition home or self-care (01) ==
LOC: PNWHC3 12:22
PROVIDERS: ATTEND Anesthesiology
DX: M47.812 Spondylosis without myelopathy or radiculopathy, cervical region (principal)
CPT/HCPCS: 99211

== ENCOUNTER 2020-03-04 06:20 | Day surgery (SDC) | payer MEDICAID ==
[2020-03-03 08:09] VITALS: BMI 28.8
[2020-03-04 06:56] VITALS: TEMP 97.4
[2020-03-04] MEDS ORDERED: ONDANSETRON 4 MG/2 ML VIAL ONE (06:58)
[2020-03-04] MEDS ORDERED: LIDOCAINE 1% (10MG/ML) FOR IV START INTRADERMA ONE (07:06)
[2020-03-04] MEDS ORDERED: ONDANSETRON 4 MG/2 ML VIAL IVP ONE (07:07)
--- NOTE | 2020-03-04 07:54 | P.PCN ---
Date of Procedure: 03/04/20 Surgeon: Jaylon Frank Pathology: none sent Condition: stable Disposition: PACU Description of Procedure: PREOPERATIVE DIAGNOSIS: Cervical spondylosis with Facet Arthropathy without myelopathy. POSTOPERATIVE DIAGNOSIS: Cervical spondylosis with Facet Arthropathy without myelopathy. PROCEDURES: Right Radiofrequency thermocoagulation, C4, C5 , and [id number] branch with Fluroscopy Guidence ANESTHESIA: Local with 1% lidocaine; IV sedation with fentanyl and Versed. EBL: Minimal PROCEDURE INDICATION: The patient with neck pain secondary to cervical arthropathy who had more than 50% relief of her pain with previous diagnostic cervical medial branch block. PROCEDURE DESCRIPTION / TECHNIQUE: The patient was seen and identified in the preoperative area. Risks, benefits, complications, and alternatives were discussed with the patient, the patient agreed to proceed with the procedure and signed the consent. IV was started. Vital signs remained stable throughout the procedure. Patient was taken to the OR and time out was completed. The patient was placed in the prone position on the procedure table. A pillow was placed under the patients chest to increase the cervical interlaminar space. The cervical area was prepped and draped in the usual sterile fashion. Critical pause was taken. Vital signs were closely monitored during the procedure. Conscious sedation was used during the procedure to decrease patients anxiety. Using cross-table lateral fluoroscopy, the center of the trapezoid-shaped cervical pillars of C4, C5 , and C6 were identified, marked, and localized with 1% lidocaine. Subsequently, a 20 -si radiofrequency cannula with a 10-mm active tip was advanced guided by fluoroscopy to the target points mentioned above. . Each site then underwent motor testing at 2 Hz and 0 to 3 volt with local stimulation, but no radicular symptoms down the arm. I then injected 0.5 ml of lidocaine 1% in each needle. Thereafter C4 , C5 , and C6 sites underwent radiofrequency thermocoagulation at 80 degrees celsius for 90 seconds . After thermocoagulation was done, 0.5 ml of the block solution containing Dexamethasone 10 mg and 2 mL of preservative-free ropivacaine was injected at the C4, C5 and C6 levels after negative aspiration of CSF and blood and with no paresthesias. Cannulas were retracted. Skin was cleansed and bandages were applied. COMPLICATIONS: No acute complications. COMMENTS: A copy of needle placement was saved to the C-arm machine at the radiology department. DISPOSITION / PLANS: The patient was placed in a supine position and transferred to the recovery area in a stable condition for observation and was discharged from the recovery room after meeting discharge criteria. Home discharge instructions given to the patient by the staff.
[2020-03-04] MEDS ORDERED: MIDAZOLAM 2 MG/2 ML VIAL ONE (08:00)
[2020-03-04] MEDS ORDERED: IV FLUID CONTINUATION 1,000 ML IV ONE (08:00)
[2020-03-04] MEDS ORDERED: fentaNYL (PF) 50 MCG/ML 2 ML AMP ONE (08:00)
[2020-03-04] MEDS ORDERED: DEXAMETHASONE SOD PHOSPHATE 10 MG/ML 1 ML VIAL ONE (08:00)
[2020-03-04] MEDS ORDERED: ROPIVACAINE 5MG/ML 20ML VIAL ONE (08:00)
[2020-03-04 08:23] VITALS: BP 117/77; PULSE 66; RESP 15
--- NOTE | 2020-03-04 10:18 | FL ---
Fluoroscopy HISTORY: Pain 19 seconds fluoroscopy time supplied to the referring clinician. 2 intraoperative C-arm images docum ent the procedure. See dictated report from anesthesia.
== END 2020-03-04 08:38 | disposition home or self-care (01) ==
LOC: ORPAIN 06:20
PROVIDERS: ATTEND Anesthesiology
DX: M47.22 Other spondylosis with radiculopathy, cervical region (principal); Z90.710 Acquired absence of both cervix and uterus
CPT/HCPCS: 64633; 64634; J2250; J1100; J2405; J3010; J2795; 99152; 99153

== ENCOUNTER → 2020-03-31 | Outpatient (CLI) | payer MEDICAID ==
[2020-03-31 12:55] VITALS: BP 114/80; PULSE 71; RESP 16; TEMP 97.8
--- NOTE | 2020-03-31 13:24 | P.PN ---
Subjective Progress Note Date: 03/31/20 This is a follow-up visit for this 54 years old female with a chronic history of severe neck pain and headache she is diagnosed with cervical spondylosis, recently we have done RFA of the right-sided medial branch cervical area at C4, C5, C6, she continued to have severe neck pain and headache, which is in terfering with her quality of life, she continued to use Fioricet when necessary baclofen 20 mg daily at bedtime and Ultram 50-100 mg daily at bedtime, and Imitrex when necessary, although this medication is not controlling her headache, the neck pain and the headache is constant, she denies any motor or sensory deficits denies any fever or night sweats denies any change in the [facility] Objective - Vital Signs Vital signs: Vital Signs Temp 97.8 F 03/31/20 12:53 Pulse 71 03/31/20 12:53 Resp 16 03/31/20 12:53 BP 114/80 03/31/20 12:53 Pulse Ox 92 L 03/31/20 12:53 - Exam Physical Examinations : -Constitutiona : Cooperative , not in acute distress . -HEENT : nech : supple , no Lymphadenopathy , normal thyroid size . : eyes : no ptosis , no icterus, no photophobia . - neurologic : Cranial nerve II to XII intact , no focal neurological deffecit . -psychatric : alert , oriented X 3 , appropriate affect , intact judgment and insight . -Lymphatic : no Lymphadenopathy . - musculoskeltal : Cervical Spine motor stregnth in the deltoid and biceps, normal right side , normal Left side motor stregnth biceps and the wrist extensors normal right side ,normal left side . motor stregnth in the triceps muscle . normal Right side , normal Left side deep tendon reflexes normal at the biceps , normal at Brachioradialis , normal at triceps. Normal sensation in the upper extremity cervical facet loading test: Positive Right. Multiple trigger point identified in the right side cervical paraspinal muscles Spurling test= positive Right. Neck distraction test= positive Right. Kelle sign= positive right . Lumber spine moter stegnth lower extremities ,thigh and legs 5/5 Right side , 5/5 Left side Assessment and Plan Plan: Assessment and plan=1-cervical spondylosis and cervical facet arthropathy. 2-myofascial pain syndrome right-sided cervical paraspinal muscles. 3-cervicogenic headache. Patient continued to have severe neck pain and headache after RFA, of the medial branch on the right side C4 C5 C6 Currently his examination showed that she had multiple trigger point in the right psoas cervical paraspinal muscles, she could benefit from Trigger point injection right side, also patient could benefit from Lidoderm patch , alternating with Voltaren gel (she had at home ) Patient will continue to use her current medications Fioricet, baclofen, Ultram, Imitrex as prescribed by the primary care Patient referred to neurologist for evaluation regarding the headache. - PQRS measures = - Patient's medications are documented in the chart. -Tobacco use is negative and counseling.Given. -Patient's has not received pneumococcal vaccine. -Advanced care planning discussed, patient not eligible. -Opiate contract not signed. -Pain positive and follow-up visit/procedure is scheduled. -Patient's blood pressure measured [ 114/80 ] , and documented in the record ,and patient will follow up with the primary care. -Patient's weight was measured and body mass index [ 27.9 ] above the normal limits and counseling was done. and patient instructed to follow-up with the primary care physician. -Patient was not identified as an unhealthy alcohol user Time with Patient: Less than 30
== END | disposition home or self-care (01) ==
LOC: PNWHC3 12:31
PROVIDERS: ATTEND Specialist
DX: M47.812 Spondylosis without myelopathy or radiculopathy, cervical region (principal); M79.18 Myalgia, other site
CPT/HCPCS: 99211

== ENCOUNTER 2020-04-29 07:12 | Day surgery (SDC) | payer MEDICAID ==
[2020-04-26 15:57] VITALS: BMI 28.0
[2020-04-29 07:46] VITALS: TEMP 97.8
[2020-04-29] MEDS ORDERED: LACTATED RINGERS 1,000 ML IV ONE (07:46)
[2020-04-29] MEDS ORDERED: ONDANSETRON 4 MG/2 ML VIAL ONE (07:49)
[2020-04-29] MEDS ORDERED: ONDANSETRON 4 MG/2 ML VIAL IVP ONE (08:15)
[2020-04-29] MEDS ORDERED: fentaNYL (PF) 50 MCG/ML 2 ML AMP ONE (08:25)
[2020-04-29] MEDS ORDERED: methylPREDNISolone ACETATE 40 MG/ML 1 ML VIAL ONE (08:25)
[2020-04-29] MEDS ORDERED: ROPIVACAINE 5MG/ML 20ML VIAL ONE (08:25)
[2020-04-29] MEDS ORDERED: MIDAZOLAM 2 MG/2 ML VIAL ONE (08:25)
--- NOTE | 2020-04-29 08:47 | P.PCN ---
Date of Procedure: 04/29/20 Procedure(s) Performed: Procedure= trigger point injection right side cervical paraspinal muscles total of 6 trigger point injected Preoperative diagnosis= 1-myofascial pain syndrome and cervical paraspinal muscles. 2-cervical spondylosis Postoperative diagnosis=Same as preop Diagnosis . Complication = none Condition= stable Anesthesia= moderate sedation with intravenous Versed 2 mg , and fentanyl 50 micrograms . Indication for the procedure= patient complaining of severe neck pain in the right side cervical paraspinal muscles, the exam was positive for multiple trigger point in the right side cervical paraspinal muscles procedure risk and benefits and alternatives discussed with the patient she agreed with proceeding, patient taken to the procedure room placed in sitting position on the standard monitors applied to the patient, sedation given and to decrease patient's anexity, then after that the neck area prepped with chlorhexidine 3 then under sterile technique using 25-gauge needle, showed of ropivacaine 0.5% 15 ml mixed with 40 mg of Depo-Medrol, total of 6 points identified in the preop holding area each one of them injected with 2-1/2 mL of the mixture, injection done after negative aspiration and there was no paresthesia during injection, patient tolerated the procedure well without any complications and taken to recovery room, and she is discharged home after discharge criteria met
[2020-04-29] MEDS ORDERED: IV FLUID CONTINUATION 800 ML IV ONE (08:51)
[2020-04-29] MEDS ORDERED: diphenhydrAMINE 50 MG/ML 1 ML VIAL IVP STA ×2 (08:52→09:20)
[2020-04-29 08:57] VITALS: RESP 20
[2020-04-29] MEDS ORDERED: diphenhydrAMINE 50 MG/ML 1 ML VIAL ONE (09:00)
[2020-04-29 09:27] VITALS: BP 112/64; PULSE 66
== END 2020-04-29 09:35 | disposition home or self-care (01) ==
LOC: ORPAIN 07:12
PROVIDERS: ATTEND Specialist
DX: M79.18 Myalgia, other site (principal); M47.812 Spondylosis without myelopathy or radiculopathy, cervical region; Z88.5 Allergy status to narcotic agent
CPT/HCPCS: 20553; J2250; J1200; J1030; J2405; J3010; J2795

== ENCOUNTER → 2020-05-19 | Outpatient (CLI) | payer MEDICAID ==
[2020-05-19 12:34] VITALS: BP 118/82; PULSE 63; RESP 16; TEMP 97.9
--- NOTE | 2020-05-19 12:36 | P.PN ---
Progress Note - Text Progress Note Date: 05/19/20 This is a follow-up visit for this 54 years old female with a chronic history of severe neck pain and headache she is diagnosed with cervical spondylosis with cervical facet arthropathy and myofascial pain syndrome cervical area, status post RFA of the medial branch cervical area and trigger point injection She reported that her pain improved significantly she had very minimal pain , she denies any motor or sensory deficit she denies any fever or night sweats, decreased very satisfied with the result of the treatment and she will follow up in the pain clinic when necessary. - PQRS measures = - Patient's medications are documented in the chart. -Tobacco use is negative and counseling.Given. -Patient's has not received pneumococcal vaccine. -Advanced care planning discussed, patient not eligible. -Opiate contract not signed. -Pain positive and follow-up visit/procedure is scheduled. -Patient's blood pressure measured [ 118/82 ] , and documented in the record ,and patient will follow up with the primary care. -Patient's weight was measured and body mass index [ ] above the, normal limits and counseling was done. and patient instructed to follow-up with the primary care physician. -Patient was not identified as an unhealthy alcohol user
== END ==
LOC: PNWHC3 12:12
PROVIDERS: ATTEND Specialist
DX: M47.812 Spondylosis without myelopathy or radiculopathy, cervical region (principal); M79.18 Myalgia, other site; Z98.890 Other specified postprocedural states
CPT/HCPCS: 99211

== ENCOUNTER → 2020-10-29 | Outpatient (CLI) | payer MEDICAID ==
--- NOTE | 2020-11-02 08:25 | MM ---
Reason for exam: screening (asymptomatic). Last mammogram was performed 1 year and 3 months ago. History: Patient is postmenopausal. Family history of breast cancer in paternal grandmother. Took estrogen for 6 years beginning at age 38. Physical Findings: A clinical breast exam by your physician is recommended on an annual basis and results should be correlated with mammographic findings. MG 3D Screening Mammo W/Cad Bilateral CC and MLO view(s) were taken. Prior study comparison: August 11, 2019, bilateral MG 3d screening mammo w/cad. February 13, 2018, bilateral MG 3d screening mammo w/cad. There are scattered fibroglandular densities. There is chronic nodularity in the left breast. No significant changes when compared with prior studies. ASSESSMENT: Benign, BI-RAD 2 RECOMMENDATION: Routine screening mammogram of both breasts in 1 year.
== END | disposition home or self-care (01) ==
LOC: RADMAMWWP 16:30
PROVIDERS: ATTEND Family Medicine
DX: Z12.31 Encounter for screening mammogram for malignant neoplasm of breast (principal); Z80.3 Family history of malignant neoplasm of breast; Z78.0 Asymptomatic menopausal state
CPT/HCPCS: 77063; 77067

== ENCOUNTER → 2020-11-11 | Outpatient (CLI) | payer MEDICAID ==
--- NOTE | 2020-11-11 07:30 | XR ---
EXAMINATION TYPE: XR chest 2V, XR ribs LT DATE OF EXAM: 11/11/2020 COMPARISON: Chest x-ray March 11, 2018. HISTORY: Chest and left-sided rib pain. Shortness of breath. TECHNIQUE: Frontal and lateral views of the chest are obtained. The frontal and oblique images left- sided ribs. FINDINGS: There is no suspicious new focal air space opacity, pleural effusion, or pneumothorax seen . The cardiac silhouette size is stable and within normal limits. Underlying scoliosis redemonstrate d. Cholecystectomy clips are redemonstrated. Dedicated images of the left-sided ribs show no acute displaced fracture. No suspicious expansile or destructive lesion is seen. Overlying soft tissue is unremarkable. IMPRESSION: 1. No acute cardiopulmonary process. 2. No acute displaced left-sided rib fracture.
== END | disposition home or self-care (01) ==
LOC: RADXRMAIN 06:58
PROVIDERS: ATTEND Family Medicine
DX: R07.81 Pleurodynia (principal); R06.02 Shortness of breath
CPT/HCPCS: 71046

== ENCOUNTER → 2021-01-05 | Outpatient (CLI) | payer MEDICAID, OTHER | END | disposition home or self-care (01) | LOC: LABWHC1 17:41 | PROVIDERS: ATTEND Emergency Medicine | DX: Z20.822 Contact with and (suspected) exposure to COVID-19 (principal) | CPT/HCPCS: 87635 ==

== ENCOUNTER → 2021-01-06 | Outpatient (CLI) | payer MEDICAID, OTHER | END | disposition home or self-care (01) | LOC: LABWHC1 18:45 | PROVIDERS: ATTEND Emergency Medicine | DX: Z20.822 Contact with and (suspected) exposure to COVID-19 (principal) | CPT/HCPCS: 87635 ==

== ENCOUNTER → 2021-01-31 | Outpatient (CLI) | payer MEDICAID ==
--- NOTE | 2021-02-01 03:43 | MR ---
EXAMINATION TYPE: MR thoracic spine wo/w con DATE OF EXAM: 01/31/2021 COMPARISON: 07/04/2016 HISTORY: prior on synapse, hostiry of thoracic syrinx gadavist 7ml CONTRAST: Standard multiplanar, multisequence MRI departmental protocol images were obtained without contrast a nd with 10ml mL intravenous Gadavist gadolinium contrast. Thoracic vertebrae have normal alignment. There is no compression fracture. There is mild posterior d isc bulging at C5-6 and C6-7. There is developmentally adequate spinal canal and no spinal stenosis. There is a very small syrinx of the mid thoracic spinal cord measuring up to 1 mm in diameter. This i s seen from the level of T5 to the T8 vertebra. Lower thoracic spinal cord appears normal. There is n o thoracic spinal stenosis. There is no thoracic compression fracture. There is no paraspinal mass. C ontrast images show no pathologic enhancement. There is no significant spinal cord atrophy. IMPRESSION: There is a minimal syrinx of the mid thoracic spinal cord. No evidence of underlying mass. No spinal cord mass. Spinal cord appears not changed compared to old exam. No evidence of thoracic compression fracture. No thoracic spinal stenosis.
== END | disposition home or self-care (01) ==
LOC: RADMRIMAIN 16:31
PROVIDERS: ATTEND Family Medicine
DX: G95.0 Syringomyelia and syringobulbia (principal)
CPT/HCPCS: 72157; A9585

== ENCOUNTER → 2021-02-16 | Outpatient (CLI) | payer MEDICAID ==
--- NOTE | 2021-02-17 16:56 | BD ---
EXAMINATION TYPE: Axial Bone Density DATE OF EXAM: 02/16/2021 COMPARISON: 2016 CLINICAL HISTORY: Postmenopausal screening Height: 61 Weight: 166.1 FRAX RISK QUESTIONS: Alcohol (3 or more units per day): no Family History (Parent hip fracture): yes Glucocorticoids (More than 3mos): no (Ex: prednisone, prednisolone, methylprednisolone, dexamethasone, and hydrocortisone). History of Fracture in Adulthood: yes Secondary Osteoporosis: 1. Type 1 Diabetes: no 2. Hyperthyroidism: no 3. Menopause before 45: yes 4. Malnutrition: no 5. Chronic liver disease: no Rheumatoid Arthritis: no Current Tobacco Use: no RISK FACTORS HISTORY OF: History of Wrist Fracture: bilateral wrist When: 10 years ago Surgery to Spine/Hip(right/left)/Wrist (right/left): no Family History of Osteoporosis: yes Active: no Diet low in dairy products/other sources of calcium: yes Postmenopausal woman: yes Lost more than 2 inches in height since high school: no MEDICATIONS: Prozac, Ambien, tramadol, Imitrex, hydroxine Thyroid Medications: thyroid How Lon years Additional History: EXAM MEASUREMENTS: Bone mineral densitometry was performed using the [employer] System. Bone mineral density as measured about the Lumbar spine is: ----- L1-L4(G/cm2): 0.800 T Score Values are as follows: ----- L2: -3.3 ----- L3: -2.8 ----- L4: -3.4 ----- L1-L4: -3.2 Bone mineral density has: de creased 15.9% since study of: 05.26.2015 Bone mineral density about the R hip (g/cm2): 0.812 Bone mineral density about the L hip (g/cm2): 0.787 T Score values are as follows: -----R Neck: -1.6 -----L Neck: -1.8 -----R Total: -2.0 -----L Total: -1.7 Bone mineral density has: decreased -13.4 % since study of: 05.26.2015 IMPRESSION: Osteoporosis (T Score less than -2.5). There is increased fracture risk and therapy is usually indicated based on age. Re-Screen 1-2 years. NOTE: T-SCORE=SD OF THE YOUNG ADULT MEAN.
== END | disposition home or self-care (01) ==
LOC: RADBDWWP 13:12
PROVIDERS: ATTEND Family Medicine
DX: M81.0 Age-related osteoporosis without current pathological fracture (principal); Z78.0 Asymptomatic menopausal state
CPT/HCPCS: 77080

== ENCOUNTER → 2021-08-15 | Outpatient (CLI) | payer MEDICAID, OTHER ==
[2021-08-15 15:48] LABS: African American GFR (CKD) 75.3 (60.0-200.0); Albumin 4.5 g/dL (3.8-4.9); Albumin/Globulin Ratio 2.12 (1.60-3.17); Anion Gap 10.3 mmol/L (10.00-18.00); BUN/Creat Ratio 10.47 Ratio (12.00-20.00); Blood Urea Nitrogen 10.2 mg/dL (9.0-27.0); Calcium 9.3 mg/dL (8.7-10.3); Carbon Dioxide 24.6 mmol/L (20.0-27.5); Globulin 2.1 g/dL (1.6-3.3); Phosphorus 2.8 mg/dL (2.4-5.1); Potassium 4.9 mmol/L (3.5-5.5); T4, Free (Free Thyroxine) 1.18 ng/dL (0.800-1.800); Total Bilirubin 0.4 mg/dL (0.30-1.20); Total Protein 6.6 g/dL (6.2-8.2)
[2021-08-16 09:58] LABS: Anti-Endomysial IgA Antibody <1:10 Titer (<1:10)
== END | disposition home or self-care (01) ==
LOC: LABWHC1 09:18
PROVIDERS: ATTEND Internal Medicine
DX: M81.0 Age-related osteoporosis without current pathological fracture (principal); E55.9 Vitamin D deficiency, unspecified; E03.9 Hypothyroidism, unspecified
CPT/HCPCS: 36415; 80053; 82306; 82523; 83970; 84100; 84439; 84443; 86255

== ENCOUNTER → 2021-09-09 | Outpatient (CLI) | payer MEDICAID ==
[~2021-09-09] MED LIST changes: -LACTATED RINGERS 1,000 ML IV SCH; +SODIUM CHLORIDE 0.9% 500 ML 500 ML in EMPTY BAG 1 BAG IV PRN; +ZOLEDRONIC ACID 5 MG in SODIUM CHLORIDE 0.9% 100 ML IV NR
[2021-09-09 12:21] VITALS: BP 117/80; PULSE 73; RESP 16; TEMP 97.5
== END | disposition home or self-care (01) ==
LOC: PROCWHC3 12:04
PROVIDERS: ATTEND Internal Medicine
DX: M81.0 Age-related osteoporosis without current pathological fracture (principal)
CPT/HCPCS: 96365; J3489

== ENCOUNTER → 2021-12-01 | Outpatient (CLI) | payer MEDICAID ==
--- NOTE | 2021-12-01 09:45 | XR ---
Cervical spine HISTORY: Numbness 3 views of the cervical spine There is an anterolisthesis grade 1 C4-5. Loss of disc height is present C5-6 with associated spondyl osis. There are changes of facet arthropathy. Cervical vertebral bodies show preserved height and bon e mineralization. Prevertebral soft tissues are normal. Questionable interstitial changes in the lung apices. IMPRESSION: Degenerative disc disease and facet arthropathy, cervical MRI may be of benefit. Addition al findings above.
== END | disposition home or self-care (01) ==
LOC: RADXRMAIN 07:59
PROVIDERS: ATTEND Family Medicine
DX: M51.36 Other intervertebral disc degeneration, lumbar region (principal); M47.816 Spondylosis without myelopathy or radiculopathy, lumbar region
CPT/HCPCS: 72040

== ENCOUNTER → 2022-01-03 | Outpatient (CLI) | payer MEDICAID ==
--- NOTE | 2022-01-03 16:56 | MR ---
EXAMINATION TYPE: MR cervical spine wo con DATE OF EXAM: 01/03/2022 INDICATION: Patient age:Female; 56 years old; Reason for study: M50.30 CERVICAL DISC DEGENERATION. CERVICAL DISC DEGENERATION COMPARISON: MRI 07/04/2016. TECHNIQUE: Multi planar, multi sequence imaging was performed utilizing: T1-weighted, T2-weighted, an d turbo inversion recovery imaging of the cervical spine. IV Contrast: None FINDINGS: Alignment: The cervical vertebral bodies have preserved heights. Alignment is within normal limits gi domingo patient positioning and slightly straightened. Bones: Osteophyte formation seen throughout the cervical spine. Multilevel degenerative disc disease is noted and most pronounced at the C5-C6 and C6-C7 vertebral levels. Cord: The spinal cord is unremarkable with regards to their signal intensity and morphology. Discs: Multilevel disc desiccation is present. C2-C3: No significant disc pathology. The spinal canal is patent. No neural foraminal stenosis. C3-C4: No significant disc pathology. The spinal canal is patent. Bilateral facet and uncovertebral joint arthropathy are present with mild right neural foraminal stenosis. The left neural foramen is p atent. C4-C5: No significant disc pathology. The spinal canal is patent. Bilateral facet and uncovertebral joint arthropathy are present with mild right neural foraminal stenosis. The left neural foramen is p atent. C5-C6: A disc osteophyte complex is present which minimally narrows the ventral subarachnoid space. Bilateral facet and uncovertebral joint arthropathy are present with mild right and moderate left ne ural foraminal stenosis. C6-C7: A disc osteophyte complex is present which minimally narrows the ventral subarachnoid space. Bilateral facet and uncovertebral joint arthropathy are present with mild bilateral neural foraminal stenosis. C7-T1: No significant disc pathology. The spinal canal is patent. No neural foraminal stenosis. IMPRESSION: 1. No evidence for disc herniation or significant spinal canal stenosis. 2. Multilevel disc degeneration with associated osteoarthritic changes worse at C5-C6 with moderate l eft neural foraminal stenosis.
== END ==
LOC: RADMRIMAIN 11:26
PROVIDERS: ATTEND Family Medicine
DX: M50.322 Other cervical disc degeneration at C5-C6 level (principal); M47.812 Spondylosis without myelopathy or radiculopathy, cervical region; M99.71 Connective tissue and disc stenosis of intervertebral foramina of cervical region
CPT/HCPCS: 72141

== ENCOUNTER → 2022-02-21 | Outpatient (CLI) | payer MEDICAID ==
--- NOTE | 2022-02-21 09:47 | XR ---
EXAM TYPE: LUMBAR SPINE X RAY SERIES COMPARISON: NONE HISTORY: Low back pain TECHNIQUE: 3 views are submitted. FINDINGS: Alignment is anatomic. The pedicles are intact. The transverse processes are intact. There is oste openia with multilevel hypertrophic and degenerative change. There is a grade 1 anterolisthesis of L5 on S1. Facet arthropathy particularly pronounced L5-S1. IMPRESSION: 1. Diffuse osteopenia with multilevel [id number] degenerative disc disease. 2. Severe facet arthropathy and grade 1 anterolisthesis of L5 on S1.
== END | disposition home or self-care (01) ==
LOC: RADXRMAIN 09:09
PROVIDERS: ATTEND Nurse Practitioner Family
DX: M51.36 Other intervertebral disc degeneration, lumbar region (principal); M43.17 Spondylolisthesis, lumbosacral region; M85.88 Other specified disorders of bone density and structure, other site
CPT/HCPCS: 72100

== ENCOUNTER → 2022-09-15 | Outpatient (CLI) | payer MEDICAID ==
[2022-09-15 14:48] LABS: NT-Pro-B-Type Natriuretic Pept 125 pg/mL
[2022-09-15 15:47] LABS: ALT 50 U/L (4-34); AST 43 U/L (14-36); African American GFR (CKD) 63 (>60 ml/min/1.73 sqM); Albumin 4.1 g/dL (3.5-5.0); Albumin/Globulin Ratio 1.5; Alkaline Phosphatase 69 U/L (38-126); Anion Gap 9 mmol/L; Blood Urea Nitrogen 21 mg/dL (7-17); Calcium 9.3 mg/dL (8.4-10.2); Carbon Dioxide 23 mmol/L (22-30); Chloride 106 mmol/L (98-107); Globulin 2.7 g/dL; Glucose 86 mg/dL (74-99); Non-African American GFR(CKD) 55 (>60 ml/min/1.73 sqM); Potassium 4.8 mmol/L (3.5-5.1); Sodium 138 mmol/L (137-145); T4, Free (Free Thyroxine) 1.08 ng/dL (0.78-2.19); Total Bilirubin 0.3 mg/dL (0.2-1.3); Total Protein 6.8 g/dL (6.3-8.2)
[2022-09-15 20:08] LABS: Basophils # (A) 0.05 X 10*3/uL (0.00-0.10); Basophils % (A) 0.7 %; Eosinophils # (A) 0.36 X 10*3/uL (0.04-0.35); HCT 43.8 % (37.2-46.3); HGB 13.9 d/dL (12.0-15.0); Lymphocytes # (A) 2.49 X 10*3/uL (0.90-5.00); Lymphocytes % (A) 34.6 %; MCH 26.6 pg (27.0-32.0); MCHC 31.7 d/dL (32.0-37.0); MCV 83.7 FL (80.0-97.0); Mean Platelet Volume 9.6 FL (9.5-12.2); Monocytes # (A) 0.77 X 10*3/uL (0.20-1.00); Monocytes % (A) 10.7 %; NRBC Per 100 WBC 0 X 10*3/uL (0.00-0.01); Neutrophils # (A) 3.51 X 10*3/uL (1.80-7.70); Neutrophils % (A) 48.7 %; Platelet Count 339 X 10*3/uL (140-440); RBC 5.23 X 10*6/uL (4.10-5.20); RDW 14.7 % (11.5-14.5)
== END | disposition home or self-care (01) ==
LOC: LABWHC1 13:53
PROVIDERS: ATTEND Family Medicine
DX: R60.0 Localized edema (principal); R63.5 Abnormal weight gain
CPT/HCPCS: 36415; 80053; 83036; 83880; 84432; 84439; 84443; 84481; 85025; 86800

== ENCOUNTER → 2022-10-05 | Outpatient (CLI) | payer MEDICAID ==
--- NOTE | 2022-10-06 08:23 | MM ---
Reason for Exam: Screening (asymptomatic). Last mammogram was performed 1 year(s) and 11 month(s) ago. Patient History: Menarche at age 16. First Full-Term at age 21. Left ovary removed at age 39. Right ovary removed at age 39. Hysterectomy at age 32. Postmenopausal. Estrogen for 6 months starting at age 38. Paternal grandmother had breast cancer. Risk Values: Rosalia 5 year model risk: 1.0%. NCI Lifetime model risk: 6.5%. Prior Study Comparison: 02/13/2018 Bilateral Screening Mammogram, [facility]. 08/11/2019 Bilateral Screening Mammogram, [facility]. 10/29/2020 Bilateral Screening Mammogram, [facility]. Tissue Density: There are scattered fibroglandular densities. Findings: Analyzed By CAD. There is no suspicious group of microcalcifications or new suspicious mass in either breast. Overall Assessment: Negative, BI-RAD 1 Management: Screening Mammogram of both breasts in 1 year. A clinical breast exam by your physician is recommended on an annual basis and results should be correlated with mammographic findings. Note on Rosalia scores and lifetime risk: 1. A Rosalia score greater than 3% is considered moderate risk. If this is the case, consider specialist referral to assess eligibility for a risk reducing agent. If overall lifetime risk for the development of breast cancer is 20% or higher, the patient may qualify for future screening with alternating mammogram and breast MRI. Electronically signed and approved by: Cristiano Bone D.O.
== END | disposition home or self-care (01) ==
LOC: RADMAMWWP 16:36
PROVIDERS: ATTEND Family Medicine
DX: Z12.31 Encounter for screening mammogram for malignant neoplasm of breast (principal); Z78.0 Asymptomatic menopausal state; Z80.3 Family history of malignant neoplasm of breast
CPT/HCPCS: 77063; 77067

== ENCOUNTER → 2022-10-16 | Outpatient (CLI) | payer MEDICAID ==
--- NOTE | 2022-10-16 18:17 | CA ---
Transthoracic Echo Report Name: Karla Robison Age: 57 Gender: F : 1965 Exam Date: 10/16/2022 16:02 Exam Location: [facility] Ht (in): 61 Wt (lb): 200 Ordering Physician: Tacos Sánchez DO Attending/Referring Phys: Keke Laurent [facility] Structural Draftsman Claritza Ramos RDCS Procedure CPT: Indications: R06.09 Other forms of dyspnea Cardiac Hx: Technical Quality: Fair Contrast 1: Total Dose (mL): Contrast 2: Total Dose (mL): MEASUREMENTS (Male / Female) Normal Values 2D ECHO LV Diastolic Diameter PLAX 4.0 cm 4.2 - 5.9 / 3.9 - 5.3 cm LV Systolic Diameter PLAX 2.0 cm IVS Diastolic Thickness 0.9 cm 0.6 - 1.0 / 0.6 - 0.9 cm LVPW Diastolic Thickness 1.1 cm 0.6 - 1.0 / 0.6 - 0.9 cm LV Relative Wall Thickness 0.5 RV Internal Dim ED PLAX 3.2 cm LA Volume 42.4 cm??? 18 - 58 / 22 - 52 cm??? M-MODE Aortic Root Diameter MM 2.5 cm LA Systolic Diameter MM 4.1 cm LA Ao Ratio MM 1.6 AV Cusp Separation MM 2.0 cm DOPPLER LVOT Peak Velocity 100.7 cm/s LVOT Peak Gradient 4.1 mmHg LVOT Velocity Time Integral 19.1 cm MV Area PHT 2.8 cm??? Mitral E Point Velocity 73.7 cm/s Mitral A Point Velocity 83.6 cm/s Mitral E to A Ratio 0.9 MV Deceleration Time 268.0 ms MV E' Velocity 7.0 cm/s Mitral E to MV E' Ratio 10.6 TR Peak Velocity 209.5 cm/s TR Peak Gradient 17.6 mmHg Right Ventricular Systolic Press 22.6 mmHg FINDINGS Left Ventricle Mildly increased left ventricular wall thickness. Left ventricular cavity size normal. Normal left ventricular systolic function with no obvious regional wall motion abnormalities. Left ventricular ejection fraction is estimated at 55-60 %. Right Ventricle Normal right ventricular size and function. Right ventricular systolic pressure within normal limits. Right Atrium Normal right atrial size. Left Atrium Normal left atrial size. Mitral Valve Structurally normal mitral valve. No mitral stenosis. Mild to moderate mitral regurgitation. Aortic Valve Trileaflet aortic valve. No aortic stenosis. Trace aortic regurgitation. Tricuspid Valve Structurally normal tricuspid valve. mild tricuspid regurgitation. Pulmonic Valve Structurally normal pulmonic valve.trace pulmonic regurgitation. Pericardium No pericardial effusion. Aorta Normal size aortic root and proximal ascending aorta. CONCLUSIONS 1. Normal left ventricle size and systolic function 2. Mild to moderate mitral with mild tricuspid regurgitation Previewed by: Dr. Sam Bojorquez MD (Electronically Signed) Final Date: 16 October 2022 18:16
== END | disposition home or self-care (01) ==
LOC: RADECHMAIN 15:58
PROVIDERS: ATTEND Family Medicine
DX: I08.1 Rheumatic disorders of both mitral and tricuspid valves (principal); R06.09 Other forms of dyspnea
CPT/HCPCS: 93306

== ENCOUNTER 2022-11-24 06:00 | Day surgery (SDC) | payer MEDICAID ==
[2022-11-22 12:04] VITALS: BMI 37.8
[2022-11-24] MEDS ORDERED: LACTATED RINGERS 1,000 ML IV ONE (06:09)
[2022-11-24] MEDS ORDERED: LIDOCAINE 1% (10MG/ML) FOR IV START INTRADERMA PRN (06:10)
[2022-11-24] MEDS ORDERED: LACTATED RINGERS 1,000 ML IV SCH (06:10)
[2022-11-24] MEDS ORDERED: ONDANSETRON 4 MG/2 ML VIAL ONE (06:24)
[2022-11-24 06:30] VITALS: RESP 18; TEMP 96.7
[2022-11-24 06:33] LABS: Glucose,Whole Blood 86 mg/dL (70-110)
[2022-11-24] MEDS ORDERED: SCOPOLAMINE 1 MG/72 HR PATCH TRANSDERM ONE (06:40)
[2022-11-24] MEDS ORDERED: PROPOFOL 10 MG/ML 20 ML VIAL IV ONE (07:04)
[2022-11-24 07:45] VITALS: BP 117/77; PULSE 66
--- NOTE | 2022-11-24 08:43 | P.PCN ---
Date of Procedure: 11/24/22 Procedure(s) Performed: BRIEF HISTORY: Patient is a 57-year-old pleasant female scheduled for an elective colonoscopy as a part of screening for colon cancer. PROCEDURE PERFORMED: Colonoscopy with biopsy. PREOPERATIVE DIAGNOSIS: Screening for colon cancer. IV sedation per Anesthesia. PROCEDURE: After informed consent was obtained, the patient, was brought into the endoscopy unit. IV sedation was administered by Anesthesia under continuous monitoring. Digital rectal examination was normal. Initially the Olympus CF-160 flexible video colonoscope was then inserted in the rectum, gradually advanced into the cecum without any difficulty. Careful examination was performed as the scope was gradually being withdrawn. Ileocecal valve and the appendiceal orifice were visualized and appeared normal. Prep was excellent. Mucosa of the cecum appeared normal. In the ascending colon there was a 3 mm polyp that was removed by cold biopsy. Rest of the, ascending colon, transverse colon, descending colon, sigmoid colon, and rectum appeared normal. In the distal sigmoid colon there was a patchy areas of erythema measuring about 2 cm suspicious for rectal prolapse was proctitis and biopsies were done from this area. Retroflexion was performed in the rectum and no lesions were seen. The patient tolerated the procedure well. IMPRESSION: 3 mm ascending colon polyp status post cold biopsy Patchy areas of erythema in the distal rectum consistent with mild proctitis vs rectal prolapse, status post multiple biopsies Recommendations: Findings of this examination were discussed with the patientas well as her family. She was advised to follow with the biopsy results. If the biopsy result adenoma she can have a repeat colonoscopy in 5 years].
== END 2022-11-24 08:25 | disposition home or self-care (01) ==
LOC: ORWHC2ENDO 06:00
PROVIDERS: ATTEND Internal Medicine Gastroenterology
DX: Z12.11 Encounter for screening for malignant neoplasm of colon (principal); K62.89 Other specified diseases of anus and rectum; G47.33 Obstructive sleep apnea (adult) (pediatric); K63.5 Polyp of colon; J30.2 Other seasonal allergic rhinitis; E07.9 Disorder of thyroid, unspecified; I63.9 Cerebral infarction, unspecified; M19.90 Unspecified osteoarthritis, unspecified site; G43.909 Migraine, unspecified, not intractable, without status migrainosus; M81.8 Other osteoporosis without current pathological fracture; K21.9 Gastro-esophageal reflux disease without esophagitis; Z88.5 Allergy status to narcotic agent; Z88.1 Allergy status to other antibiotic agents; Z88.6 Allergy status to analgesic agent; Z79.1 Long term (current) use of non-steroidal anti-inflammatories (NSAID); Z79.890 Hormone replacement therapy; Z79.82 Long term (current) use of aspirin; Z79.83 Long term (current) use of bisphosphonates; Z79.899 Other long term (current) drug therapy
CPT/HCPCS: 88305; 45380; J2405; J2704

== ENCOUNTER → 2023-03-20 | Outpatient (CLI) | payer MEDICAID ==
[2023-03-20 16:40] LABS: Calcium 9.6 mg/dL (8.7-10.3)
== END | disposition home or self-care (01) ==
LOC: LABWHC1 11:37
PROVIDERS: ATTEND Family Medicine
DX: M81.0 Age-related osteoporosis without current pathological fracture (principal)
CPT/HCPCS: 36415; 82310; 82565

== ENCOUNTER → 2023-03-27 | Outpatient (CLI) | payer MEDICAID ==
--- NOTE | 2023-03-27 22:21 | BD ---
EXAMINATION TYPE: Axial Bone Density DATE OF EXAM: 03/27/2023 CLINICAL HISTORY: 57 years old Female. ICD-10 CODE: M81.0 AGE RELATED OSTEOPOROSIS Height: Weight: FRAX RISK QUESTIONS: Family History (Parent hip fracture): yes History of Fracture in Adulthood: yes Secondary Osteoporosis: yes 3. Menopause before 45: yes RISK FACTORS HISTORY OF: hx of rt tib fib fx as an adult History of Wrist Fracture: bilat wrists 12 yrs ago MEDICATIONS: prozac, pain meds, migrain meds, sleep aids, Thyroid Medications: yes, 6 yrs synthroid product Osteoporosis Medications: Reclast infusions, 2021 only one infusion so far EXAM MEASUREMENTS: Bone mineral densitometry was performed using the [employer] System. Bone mineral density as measured about the Lumbar spine is: ----- L1-L4(G/cm2): 0.875 T Score Values are as follows: ----- L1: -2.4 ----- L2: -2.6 ----- L3: -2.5 ----- L4: -2.8 ----- L1-L4: -2.5 Z Score Values are as follows: ----- L1: -2.1 ----- L2: -2.3 ----- L3: -2.2 ----- L4: -2.5 ----- L1-L4: -2.3 Bone mineral density has: Increased 9.4% since study of: 02.26.2021 Bone mineral density about the R hip (g/cm2): 0.807 Bone mineral density about the L hip (g/cm2): 0.867 T Score values are as follows: -----R Neck: -1.5 -----L Neck: -1.9 -----R Total: -1.6 -----L Total: -1.1 Z Score values are as follows: -----R Neck: -0.8 -----L Neck: -1.2 -----R Total: -1.3 -----L Total: -0.8 Bone mineral density has: Increased 8.9% since study of: 02.26.2021 FRAX%s: The graph provided illustrates a 25.3% chance for a major osteoporotic fx and a 1.6% chance f or the hips probability for fx in 10 years time. IMPRESSION: Osteoporosis (T Score less than -2.5). There is increased fracture risk and therapy is usually indicated based on age. Re-Screen 1-2 years. NOTE: T-SCORE=SD OF THE YOUNG ADULT MEAN.
== END | disposition home or self-care (01) ==
LOC: RADBDWWP 13:41
PROVIDERS: ATTEND Family Medicine
DX: M81.0 Age-related osteoporosis without current pathological fracture (principal); Z78.0 Asymptomatic menopausal state; M85.89 Other specified disorders of bone density and structure, multiple sites
CPT/HCPCS: 77080

== ENCOUNTER → 2023-08-03 | Outpatient (CLI) | payer MEDICAID ==
--- NOTE | 2023-08-04 10:45 | MR ---
EXAMINATION TYPE: MR cervical spine wo con DATE OF EXAM: 08/03/2023 COMPARISON: 01/03/2022 HISTORY: 58-year-old female M48.02, Neck pain, headaches, numbness/tingling. TECHNIQUE: Multiplanar, multisequence images of the cervical spine were acquired without contrast. FINDINGS: No cranial cervical junction under body, predental space widening, or prevertebral soft tissue swelli ng. Mild degenerative change at the C1 dens articulation. Mild to moderate multilevel degenerative disc disease with a disc desiccation and disc osteophyte com plex formation with posterior bulging discs. Changes are greatest at C5-C6 and C6/C7. Additional moderate multilevel facet and uncovertebral joint arthropathy is present. Straightening of the normal cervical lordosis. Degenerative grade 1 anterolisthesis C4-C5. Remaining alignment is maintained. Disc osteophyte complex contributes to mild spinal canal stenosis at both C5-C6 and C6-C7, slightly i ncreased from prior exam. At C5-C6, there is abutment of the ventral cord. No cord compression or mild hepatic cord signal change at any levels. At C3-C4, facet and uncovertebral joint arthropathy contributes to mild bilateral neuroforaminal sten osis. At C4-C5, facet and uncovertebral joint arthropathy contribute to mild right neural foraminal stenosi s. At C5-C6, uncovertebral joint and facet arthropathy contributes to mild to moderate left and mild rig ht neuroforaminal stenosis. No prevertebral or paravertebral soft tissue abnormality seen. No suspicious bone marrow replacement. IMPRESSION: 1. Yner-mw-mxpinonn multilevel degenerative disc disease. Moderate multilevel facet and uncovertebral joint arthropathy. 2. Straightening of the normal cervical lordosis with degenerative grade 1 anterolisthesis at C4-C5. 3. Disc osteophyte complex formation contributes to mild spinal canal narrowing at both C5-C6 and C6- C7, slightly increased from 2022. At C5-C6, there is abutment of the ventral cord but no significant spinal canal stenosis or cord compression. 4. Changes result in variable mild to moderate neuroforaminal stenoses as outlined above.
== END | disposition home or self-care (01) ==
LOC: RADMRIMAIN 12:52
PROVIDERS: ATTEND Orthopaedic Surgery
DX: M48.02 Spinal stenosis, cervical region (principal); M47.812 Spondylosis without myelopathy or radiculopathy, cervical region; M25.78 Osteophyte, vertebrae; M43.12 Spondylolisthesis, cervical region; M50.30 Other cervical disc degeneration, unspecified cervical region
CPT/HCPCS: 72141

== ENCOUNTER 2023-08-08 12:20 | Observation (INO) | payer MEDICAID ==
[2023-08-08] MEDS: fentaNYL (PF) 50 MCG/ML 2 ML AMP IVP STA (12:53)
[2023-08-08] MEDS: ONDANSETRON 4 MG/2 ML VIAL IVP STA (12:59)
[2023-08-08 13:21] LABS: Basophils % (A) 0 %; Eosinophils # (A) 0.4 k/uL (0-0.7); Eosinophils % (A) 4 %; HCT 43.7 % (34.0-46.0); Lymphocytes # (A) 2.2 k/uL (1.0-4.8); Lymphocytes % (A) 24 %; MCH 26.6 pg (25.0-35.0); MCV 83.1 fL (80.0-100.0); Monocytes # (A) 0.6 k/uL (0-1.0); Monocytes % (A) 7 %; Neutrophils # (A) 5.8 k/uL (1.3-7.7); Neutrophils % (A) 64 %; Platelet Count 335 k/uL (150-450); RBC 5.26 m/uL (3.80-5.40); WBC 9.1 k/uL (3.8-10.6)
[2023-08-08 13:37] LABS: INR 0.9 (<1.2); Partial Thromboplastin Time 25.5 sec (22.0-30.0); Prothrombin Time 10.1 sec (10.0-12.5)
[2023-08-08] MEDS: NITROGLYCERIN SL TABS 0.4 MG TAB SUBLINGUAL STA (13:37)
[2023-08-08 13:41] LABS: ALT 21 U/L (4-34); AST 25 U/L (14-36); African American GFR (CKD) 62 (>60 ml/min/1.73 sqM); Albumin 4.1 g/dL (3.5-5.0); Alkaline Phosphatase 74 U/L (38-126); Anion Gap 4 mmol/L; Blood Urea Nitrogen 17 mg/dL (7-17); Calcium 9.4 mg/dL (8.4-10.2); Carbon Dioxide 26 mmol/L (22-30); Chloride 109 mmol/L (98-107); Glucose 88 mg/dL (74-99); Lipase 209 U/L (23-300); Magnesium 1.8 mg/dL (1.6-2.3); Non-African American GFR(CKD) 53 (>60 ml/min/1.73 sqM); Potassium 4.7 mmol/L (3.5-5.1); Sodium 139 mmol/L (137-145); Total Bilirubin 0.4 mg/dL (0.2-1.3); Total Protein 6.4 g/dL (6.3-8.2)
[2023-08-08 13:47] LABS: NT-Pro-B-Type Natriuretic Pept 102 pg/mL
[2023-08-08] MEDS ORDERED: RX INFO: IV CONTRAST WAS GIVEN 1 EACH MISC MISCELLANE PRN (13:47)
--- NOTE | 2023-08-08 13:48 | ED ---
General Adult HPI - General Chief complaint: Chest Pain Stated complaint: chest pain Time Seen by Provider: 08/08/23 12:24 Source: patient Mode of arrival: wheelchair Limitations: no limitations - History of Present Illness Initial comments: 58-year-old female with past medical history of thyroid disorder, reflux who presents emergency department reporting left-sided chest pain. States that it started while she was at work. It is located over the left chest and radiates straight through to the back. She admits to associated shortness of breath. She denies fevers, chills or cough. No history of cardiac disease. No history of PE or DVT. No calf pain or swelling. No other alleviating, precipitating modifying factors - Related Data Home Medications Medication Instructions Recorded Confirmed Levothyroxine Sodium 25 mcg PO DAILY 11/14/16 08/08/23 Zolpidem [Ambien] 10 mg PO HS 01/08/18 08/08/23 Ergocalciferol [Vitamin D2 (1250 1,250 mcg PO FR 11/22/22 08/08/23 Mcg = 94677 Iu)] FLUoxetine HCL [PROzac] 80 mg PO HS 11/22/22 08/08/23 Rimegepant Sulfate [Nurtec Odt] 75 mg PO Q48H PRN 11/22/22 08/08/23 Aspirin EC [Ecotrin Low Dose] 81 mg PO DAILY 08/08/23 08/08/23 Melatonin 20 mg PO HS 08/08/23 08/08/23 hydrOXYzine HCL [Atarax] 50 mg PO HS 08/08/23 08/08/23 Allergies Allergy/AdvReac Type Severity Reaction Status Date / Time codeine Allergy Severe Nausea & Verified 08/08/23 13:13 Vomiting hydrocodone bitartrate Allergy Severe Nausea & Verified 08/08/23 13:13 [From [place]] Vomiting levofloxacin [From Levaquin] Allergy Severe SEVERE Verified 08/08/23 13:13 VOMITING hydromorphone HCl Allergy seizures Verified 08/08/23 13:13 [From Dilaudid] morphine Allergy Rash/Hives Verified 08/08/23 13:13 acetaminophen [From Percocet] AdvReac N/V,Abdominal Verified 08/08/23 13:13 pain alcohol AdvReac MIGRAINES, Verified 08/08/23 13:13 N/V, SOB,abd pain ibuprofen [From Motrin] AdvReac ABD PAIN, Verified 08/08/23 13:13 ELEVATED LIVER ENZYMES, ULCERS Milk Containing Products AdvReac Nausea & Verified 08/08/23 13:13 (Dairy) Vomiting & [Dairy] Diarrhea,migraines,abd pain oxycodone [From Percocet] AdvReac N/V,Abdominal Verified 08/08/23 13:13 pain Review of Systems ROS Statement: Those systems with pertinent positive or pertinent negative responses have been documented in the HPI. ROS Other: All systems not noted in ROS Statement are negative. Past Medical History Past Medical History: Eye Disorder, GERD/Reflux, Neurologic Disorder, Osteoarthritis (OA), Sleep Apnea/CPAP/BIPAP, Thyroid Disorder Additional Past Medical History / Comment(s): DOES NOT USE C-PAP,migraines, seasonal allergies, ALLERGY-induced asthma,RT EPI RETINAL MEMBRANE . Peptic ulcer disease with hemorrhage, HX H.Pylori, syringomyelia, chronic back pain, hemorrhoids, ddd, lumbar spondylosis. , stroke mar 2022. OSTEOPOROSIS. History of Any Multi-Drug Resistant Organisms: None Reported Past Surgical History: Adenoidectomy, Bladder Surgery, Cholecystectomy, Heart Catheterization, Hernia Repair, Hysterectomy, Orthopedic Surgery, Tonsillectomy, Tubal Ligation Additional Past Surgical History / Comment(s): Monarc procedure, Pubovaginal sling, UPPP for sleep apnea , A & P repair, laparoscopic lysis of adhesion 2, left heart catheterization 2006, EGD/colonoscopy last one 02/12/15, ORIF lt foot, lt shoulder sx 02/26/15, pain clinic injections, RFA LT lower back, HEART CATH 03/14/17-CLEAR, RFA RT LOWER BACK 03/22/17, 12/13/17, egd-04/09/17, HIATAL HERNIA REPAIR 07/09/17, pain clinic injections last 01/15/20 Past Anesthesia/Blood Transfusion Reactions: Previous Problems w/ Anesthesia, Family History of Problems w/ Anesthesia, Motion Sickness, Postoperative Nausea & Vomiting (PONV) Additional Past Anesthesia/Blood Transfusion Reaction / Comment(s): HAD TO HAVE BENADRYL AFTER LAST PAIN PROCEDURE (12/13/17) FOR SEVERE ITCHING. severe N/V with anesthesia-usually even with pre op measures. SISTER, MOTHER AND BROTHER ALL HAVE SEVERE PONV WITH ANESTHESIA Past Psychological History: Depression Smoking Status: Former smoker Past Alcohol Use History: None Reported Past Drug Use History: None Reported - Past Family History Father Family Medical History: Cancer, Myocardial Infarction ([place]) Additional Family Medical History / Comment(s): KIDNEY CA Mother Family Medical History: Asthma, COPD, Eye Disorder, Fibromyalgia, GERD/Reflux Additional Family Medical History / Comment(s): AT AGE 75- RESP FAILURE(PAST HEAVY SMOKER) Sister(s) Family Medical History: Hypertension Brother(s) Family Medical History: No Reported History Daughter(s) Family Medical History: Cancer Additional Family Medical History / Comment(s): cervical Son(s) Family Medical History: No Reported History General Exam Limitations: no limitations General appearance: alert, in distress Head exam: Present: atraumatic, normocephalic, normal inspection Eye exam: Present: normal appearance, PERRL, EOMI. Absent: scleral icterus, conjunctival injection, periorbital swelling ENT exam: Present: normal exam, mucous membranes moist Neck exam: Present: normal inspection. Absent: tenderness, meningismus, lymphadenopathy Respiratory exam: Present: normal lung sounds bilaterally. Absent: respiratory distress, wheezes, rales, rhonchi, stridor Cardiovascular Exam: Present: regular rate, normal rhythm, normal heart sounds. Absent: systolic murmur, diastolic murmur, rubs, gallop, clicks GI/Abdominal exam: Present: soft, normal bowel sounds. Absent: distended, tenderness, guarding, rebound, rigid Extremities exam: Present: normal inspection, full ROM, normal capillary refill. Absent: tenderness, pedal edema, joint swelling, calf tenderness Back exam: Present: normal inspection Neurological exam: Present: alert, oriented X3, CN II-XII intact Psychiatric exam: Present: normal affect, normal mood Skin exam: Present: warm, dry, intact, normal color. Absent: rash Course Vital Signs 08/08/23 08/08/23 08/08/23 12:21 12:23 13:02 Temperature 97.4 F L Pulse Rate 72 74 70 Respiratory 22 16 18 Rate Blood Pressure 127/79 125/74 141/86 O2 Sat by Pulse 97 98 98 Oximetry 08/08/23 08/08/23 08/08/23 13:30 13:49 16:16 Temperature Pulse Rate 75 63 65 Respiratory 20 16 18 Rate Blood Pressure 154/90 112/80 115/78 O2 Sat by Pulse 98 98 98 Oximetry Medical Decision Making - Medical Decision Making Was pt. sent in by a medical professional or institution (CASIMIRO Padgett, MULTI SKILLED OPERATOR, urgent care, hospital, or penitentiary...) When possible be specific @ -No Did you speak to anyone other than the patient for history (EMS, parent, family, police, friend...)? What history was obtained from this source @ -Spoke with the patient's significant other for history Did you review nursing and triage notes (agree or disagree)? Why? @ -I reviewed and agree with nursing and triage notes Were old charts reviewed (outside hosp., previous admission, EMS record, old EKG, old radiological studies, urgent care reports/EKG's, penitentiary records)? Report findings @ -I reviewed heart cath from March 2017 Differential Diagnosis (chest pain, altered mental status, abdominal pain women, abdominal pain men, vaginal bleeding, weakness, fever, dyspnea, syncope, headache, dizziness, GI bleed, back pain, seizure, CVA, palpatations, mental health, musculoskeletal)? @ -Differential Chest Pain: Stable Angina, Unstable Angina, STEMI, NSTEMI Aortic Dissection, Pneumothorax, Musculoskeletal, Esophageal Spasm GERD, Cholecystitis, Pancreatitis, Zoster, this is not meant to be an all-inclusive list. ] EKG interpreted by me (3pts min.). @ -Yes and demonstrates sinus rhythm with a rate of 65. ME interval 154. QRS 80. QTc 414. No acute ST segment elevations or depressions X-rays interpreted by me (1pt min.). @ -Yes and demonstrates no acute process CT interpreted by me (1pt min.). @ -Yes and demonstrates no PE U/S interpreted by me (1pt. min.). @ -None done What testing was considered but not performed or refused? (CT, X-rays, U/S, labs)? Why? @ -None What meds were considered but not given or refused? Why? @ -None Did you discuss the management of the patient with other professionals (professionals i.e. CASIMIRO Padgett, MULTI SKILLED OPERATOR, lab, RT, psych nurse, social services director, spool sander, teacher, artillery officer, leather case finisher)? Give summary @ -Discussed case with Sheet for admission Was smoking cessation discussed for >3mins.? @ -No Was critical care preformed (if so, how long)? @ -No Were there social determinants of health that impacted care today? How? (Homelessness, low income, unemployed, alcoholism, drug addiction, transportation, low edu. Level, literacy, decrease access to med. care, correction, rehab)? @ -No Was there de-escalation of care discussed even if they declined (Discuss DNR or withdrawal of care, Hospice)? DNR status @ -No What co-morbidities impacted this encounter? (DM, HTN, Smoking, COPD, CAD, Cancer, CVA, ARF, Chemo, Hep., AIDS, mental health diagnosis, sleep apnea, morbid obesity)? @ -None Was patient admitted / discharged? Hospital course, mention meds given and route, prescriptions, significant lab abnormalities, going to OR and other pertinent info. @ -Upon arrival patient seen and evaluated in room 1. Thorough history and physical exam was performed. Twelve-lead EKG is obtained. Laboratory studies are conducted. Patient remains on continuous pulse ox and cardiac monitoring. Laboratory studies and chest x-ray are within normal limits. Patient continues to have intense pain stating that is going straight through to her back. Because of this CT was performed which demonstrates no signs of PE or dissection. Results are discussed with the patient. She does have persistent pain therefore I recommended admission. Aspirin and nitro administered. Nitro did provide some relief. Patient will be admitted to Dr. Mckeon with cardiology to consult Undiagnosed new problem with uncertain prognosis? @ -Yes Drug Therapy requiring intensive monitoring for toxicity (Heparin, Nitro, Insulin, Cardizem)? @ -No Were any procedures done? @ -No Diagnosis/symptom? @ -Acute chest pain, possible ACS Acute, or Chronic, or Acute on Chronic? @ -Acute Uncomplicated (without systemic symptoms) or Complicated (systemic symptoms)? @ -Complicated Side effects of treatment? @ -No Exacerbation, Progression, or Severe Exacerbation? @ -No Poses a threat to life or bodily function? How? (Chest pain, [place], [place], pneumonia, PE, COPD, DKA, ARF, appy, cholecystitis, CVA, Diverticulitis, Homicidal, Suicidal, threat to staff... and all critical care pts) @ -No - Lab Data Result diagrams: 08/09/23 05:42 08/09/23 05:42 Lab Results 08/08/23 08/08/23 08/08/23 Range/Units 12:33 12:33 12:33 WBC 9.1 (3.8-10.6) k/uL RBC 5.26 (3.80-5.40) m/uL Hgb 14.0 (11.4-16.0) gm/dL Hct 43.7 (34.0-46.0) % MCV 83.1 (80.0-100.0) fL MCH 26.6 (25.0-35.0) pg MCHC 32.0 (31.0-37.0) g/dL RDW 14.0 (11.5-15.5) % Plt Count 335 (150-450) k/uL MPV 7.0 Neutrophils % 64 % Lymphocytes % 24 % Monocytes % 7 % Eosinophils % 4 % Basophils % 0 % Neutrophils # 5.8 (1.3-7.7) k/uL Lymphocytes # 2.2 (1.0-4.8) k/uL Monocytes # 0.6 (0-1.0) k/uL Eosinophils # 0.4 (0-0.7) k/uL Basophils # 0.0 (0-0.2) k/uL PT 10.1 (10.0-12.5) sec INR 0.9 (<1.2) APTT 25.5 (22.0-30.0) sec D-Dimer 0.41 (<0.60) mg/L FEU Sodium 139 (137-145) mmol/L Potassium 4.7 (3.5-5.1) mmol/L Chloride 109 H (98-107) mmol/L Carbon Dioxide 26 (22-30) mmol/L Anion Gap 4 mmol/L BUN 17 (7-17) mg/dL Creatinine 1.14 H (0.52-1.04) mg/dL Est GFR (CKD-EPI)AfAm 62 (>60 ml/min/1.73 sqM) Est GFR (CKD-EPI)NonAf 53 (>60 ml/min/1.73 sqM) Glucose 88 (74-99) mg/dL Calcium 9.4 (8.4-10.2) mg/dL Magnesium 1.8 (1.6-2.3) mg/dL Total Bilirubin 0.4 (0.2-1.3) mg/dL AST 25 (14-36) U/L ALT 21 (4-34) U/L Alkaline Phosphatase 74 (38-126) U/L Troponin I (0.000-0.034) ng/mL NT-Pro-B Natriuret Pep 102 pg/mL Total Protein 6.4 (6.3-8.2) g/dL Albumin 4.1 (3.5-5.0) g/dL Lipase 209 (23-300) U/L 08/08/23 Range/Units 12:33 WBC (3.8-10.6) k/uL RBC (3.80-5.40) m/uL Hgb (11.4-16.0) gm/dL Hct (34.0-46.0) % MCV (80.0-100.0) fL MCH (25.0-35.0) pg MCHC (31.0-37.0) g/dL RDW (11.5-15.5) % Plt Count (150-450) k/uL MPV Neutrophils % % Lymphocytes % % Monocytes % % Eosinophils % % Basophils % % Neutrophils # (1.3-7.7) k/uL Lymphocytes # (1.0-4.8) k/uL Monocytes # (0-1.0) k/uL Eosinophils # (0-0.7) k/uL Basophils # (0-0.2) k/uL PT (10.0-12.5) sec INR (<1.2) APTT (22.0-30.0) sec D-Dimer (<0.60) mg/L FEU Sodium (137-145) mmol/L Potassium (3.5-5.1) mmol/L Chloride (98-107) mmol/L Carbon Dioxide (22-30) mmol/L Anion Gap mmol/L BUN (7-17) mg/dL Creatinine (0.52-1.04) mg/dL Est GFR (CKD-EPI)AfAm (>60 ml/min/1.73 sqM) Est GFR (CKD-EPI)NonAf (>60 ml/min/1.73 sqM) Glucose (74-99) mg/dL Calcium (8.4-10.2) mg/dL Magnesium (1.6-2.3) mg/dL Total Bilirubin (0.2-1.3) mg/dL AST (14-36) U/L ALT (4-34) U/L Alkaline Phosphatase (38-126) U/L Troponin I <0.012 (0.000-0.034) ng/mL NT-Pro-B Natriuret Pep pg/mL Total Protein (6.3-8.2) g/dL Albumin (3.5-5.0) g/dL Lipase (23-300) U/L Disposition Clinical Impression: Chest pain Disposition: ADMITTED IP TO THIS [facility] Condition: Stable Is patient prescribed a controlled substance at d/c from ED?: No Time of Disposition: 14:22 Decision to Admit Reason: Admit from EC Decision Date: 08/08/23 Decision Time: 14:22
--- NOTE | 2023-08-08 14:16 | CT ---
EXAMINATION TYPE: CT chest w con CT DLP: 311 mGycm, Automated exposure control for dose reduction was used. DATE OF EXAM: 08/08/2023 2:03 PM COMPARISON: Chest radiograph from same day. Multiple CTs of the chest with most recent on . CLINICAL INDICATION:Female, 58 years old with history of pain to back; PHH, Chest pain radiating towa rds back. JEANNIE TECHNIQUE: Multiple axial images were obtained through the chest. Sagittal and coronal reformats were created for review. Contrast used:80 mL of Isovue 300 with IV Contrast (None if empty) Oral contrast used: (None if empty) FINDINGS: LUNGS/ PLEURA: The lung parenchyma appears unremarkable. AIRWAY: Patent and unremarkable. HEART: Size within normal limits. MEDIASTINUM: No gross evidence of adenopathy. VASCULATURE: No aortic aneurysm. No evidence for aortic dissection or aneurysm. MUSCULOSKELETAL: No acute osseous abnormalities SOFT TISSUES/LYMPH NODES: Unremarkable. LOWER NECK: No significant findings. UPPER ABDOMEN: Gallbladder surgically absent. Scattered tiny probable cysts. IMPRESSION: No evidence for pulmonary embolus or acute process. No evidence for aortic dissection or aneurysm.
[2023-08-08] MEDS ORDERED: NALOXONE 0.4 MG/ML 1 ML VIAL IV PRN (14:39)
[2023-08-08] MEDS: NITROGLYCERIN OINT 1 INCH/GM PACKET TOPICAL STA (14:42)
[2023-08-08] MEDS: KETOROLAC 15 MG/ML 1 ML VIAL IVP STA (14:42)
[2023-08-08] MEDS: ASPIRIN 81 MG PO STA (14:49)
[2023-08-08 16:32] VITALS: RESP 16
[2023-08-08] MEDS: KETOROLAC 15 MG/ML 1 ML VIAL IVP PRN (18:49)
[2023-08-08] MEDS ORDERED: Rimegepant Sulfate [Nurtec Odt] 75 MG Tablet PO PRN (18:55)
[2023-08-08] MEDS: hydrOXYzine HCL 25 MG TAB PO SCH (20:32)
[2023-08-08] MEDS: FLUoxetine HCL 20 MG CAP PO SCH (20:32)
[2023-08-08] MEDS: MELATONIN 5 MG TABLET PO SCH (20:33)
[2023-08-08] MEDS: ACETAMINOPHEN TAB 325 MG TAB PO STA (21:24)
[2023-08-08] MEDS: ZOLPIDEM 5 MG TAB PO SCH (21:24)
[2023-08-09 02:03] VITALS: TEMP 98.1
[2023-08-09] MEDS: CALCIUM CARBONATE 500 MG CHEWABLE PO PRN (05:55)
[2023-08-09] MEDS: LEVOTHYROXINE 25 MCG TAB PO SCH (05:56)
[2023-08-09] MEDS: ASPIRIN 81 MG PO SCH (09:00)
[2023-08-09 09:07] VITALS: BP 103/63; PULSE 64
--- NOTE | 2023-08-09 09:37 | P.CRDCN ---
History of Present Illness History of present illness: HISTORY OF PRESENT ILLNESS: This is a 58-year-old female with a past medical history significant for GERD, osteoarthritis, peptic ulcer disease, and obesity. Patient used to follow in the office with Dr. Bojorquez but has not been seen since 2018. We have been asked to see the patient in consultation for chest pain. Patient examined at the bedside. Patient states she was sitting at her desk yesterday working when she developed chest pain. She describes the pain as a pressure type sensation. She received nitro which relieved her pain. She denies any pain at the time of examination. DIAGNOSTICS: - EKG reveals sinus mechanism with nonspecific ST-T wave changes. - Chest CT: Negative for pulmonary embolism. No evidence for aortic dissection or aneurysm. - Laboratory data: WBC 9.1. Hemoglobin 14.0. Platelet count 335. D-dimer 0.41. Sodium 139. Potassium 4.7. BUN 17. Creatinine 1.14. Troponin negative x 3. BNP 102. - Current home cardiac medications include aspirin 81 mg daily. - Most recent echocardiogram obtained in October 2022 revealed ejection fraction 55 to 60%, mild to moderate MR, trace AR, mild TR - Cardiac catheterization history: March 2017 revealing normal coronary arteries REVIEW OF SYSTEMS: At the time of my exam: CONSTITUTIONAL: Denies fever or chills. HEENT: Denies blurred vision, vision changes, or eye pain. Denies hemoptysis CARDIOVASCULAR: Denies chest pain. Denies orthopnea. Denies PND. Denies palpitations RESPIRATORY: Denies shortness of breath. GASTROINTESTINAL: Denies abdominal pain. Denies nausea or vomiting. HEMATOLOGIC: Denies bleeding disorders. GENITOURINARY: Denies any blood in urine. SKIN: Denies pruitis. Denies rash. PHYSICAL EXAM: VITAL SIGNS: Reviewed. GENERAL: Well-developed in no acute distress. HEENT: Head is normocephalic. Pupils are equal, round. Sclerae anicteric. Mucous membranes of the mouth are moist. Neck supple. No JVD or thyromegaly LUNGS: Respirations even and unlabored. Lungs essentially clear to auscultation bilaterally. HEART: Regular rate and rhythm. S1 and S2 heard. ABDOMEN: Soft. Nondistended. Nontender. EXTREMITIES: Normal range of motion. No clubbing or cyanosis. Peripheral puls es intact. No lower extremity edema NEUROLOGIC: Awake and alert. Oriented x 3. ASSESSMENT: Chest pain Normal coronary arteries, per cardiac cath 03/2017 GERD Osteoarthritis History of peptic ulcer disease Obesity: BMI 37.8 History of CVA/TIA Former nicotine dependence, quit in 1994 PLAN: An acute coronary event has been ruled out Resume home cardiac medications Discussed options with patient including staying until tomorrow (due to holiday) for echo and stress testing versus discharge today and completing both outpatient Patient would like to be discharged home today and follow up outpatient Patient is at low risk for cardiac events and plan for outpatient stress testing is reasonable Patient instructed to return back to the emergency room if she has further episodes of chest pain or pressure. Patient verbalized understanding. Patient to follow-up postdischarge with Dr. Becerril Nurse practitioner note has been reviewed by physician. Signing provider agrees with the documented findings, assessment, and plan of care documented by ART DEALER as a scribe. Past Medical History Past Medical History: Eye Disorder, GERD/Reflux, Neurologic Disorder, Os teoarthritis (OA), Sleep Apnea/CPAP/BIPAP, Thyroid Disorder Additional Past Medical History / Comment(s): DOES NOT USE C-PAP,migraines, seasonal allergies, ALLERGY-induced asthma,RT EPI RETINAL MEMBRANE . Peptic ulcer disease with hemorrhage, HX H.Pylori, syringomyelia, chronic back pain, hemorrhoids, ddd, lumbar spondylosis. , stroke mar 2022. OSTEOPOROSIS. History of Any Multi-Drug Resistant Organisms: None Reported Past Surgical History: Adenoidectomy, Bladder Surgery, Cholecystectomy, Heart Catheterization, Hernia Repair, Hysterectomy, Orthopedic Surgery, Tonsillectomy, Tubal Ligation Additional Past Surgical History / Comment(s): Monarc procedure, Pubovaginal sling, UPPP for sleep apnea , A & P repair, laparoscopic lysis of adhesion 2, left heart catheterization 2006, EGD/colonoscopy last one 02/12/15, ORIF lt foot, lt shoulder sx 02/26/15, pain clinic injections, RFA LT lower back, HEART CATH 03/14/17-CLEAR, RFA RT LOWER BACK 03/22/17, 12/13/17, egd-04/09/17, HIATAL HERNIA REPAIR 07/09/17, pain clinic injections last 01/15/20 Past Anesthesia/Blood Transfusion Reactions: Previous Problems w/ Anesthesia, Family History of Problems w/ Anesthesia, Motion Sickness, Postoperative Nausea & Vomiting (PONV) Additional Past Anesthesia/Blood Transfusion Reaction / Comment(s): HAD TO HAVE BENADRYL AFTER LAST PAIN PROCEDURE (12/13/17) FOR SEVERE ITCHING. severe N/V with anesthesia-usually even with pre op measures. SISTER, MOTHER AND BROTHER ALL HAVE SEVERE PONV WITH ANESTHESIA Past Psychological History: Depression Additional Psychological History / Comment(s): pt stated she is maintained by medications Smoking Status: Former smoker Past Alcohol Use History: None Reported Additional Past Alcohol Use History / Comment(s): STARTED SMOKING AT AGE 15 SMOKED UP TO 2 PPD THEN QUIT IN 1997. Past Drug Use History: None Reported - Past Family History Father Family Medical History: Cancer, Myocardial Infarction ([place]) Additional Family Medical History / Comment(s): KIDNEY [place] Mother Family Medical History: Asthma, COPD, Eye Disorder, Fibromyalgia, GERD/Reflux Additional Family Medical History / Comment(s): AT AGE 75- RESP FAILURE(PAST HEAVY SMOKER) Sister(s) Family Medical History: Hypertension Brother(s) Family Medical History: No Reported History Daughter(s) Family Medical History: Cancer Additional Family Medical History / Comment(s): cervical Son(s) Family Medical History: No Reported History Medications and Allergies Home Medications Medication Instructions Recorded Confirmed Type Levothyroxine Sodium 25 mcg PO DAILY 11/14/16 08/08/23 History Zolpidem [Ambien] 10 mg PO HS 01/08/18 08/08/23 History Ergocalciferol [Vitamin D2 (1250 1,250 mcg PO FR 11/22/22 08/08/23 History Mcg = 36540 Iu)] FLUoxetine HCL [Prozac] 80 mg PO HS 11/22/22 08/08/23 History Rimegepant Sulfate [Nurtec Odt] 75 mg PO Q48H PRN 11/22/22 08/08/23 History Aspirin EC [Ecotrin Low Dose] 81 mg PO DAILY 08/08/23 08/08/23 History Melatonin 20 mg PO HS 08/08/23 08/08/23 History hydrOXYzine HCL [Atarax] 50 mg PO HS 08/08/23 08/08/23 History Allergies Allergy/AdvReac Type Severity Reaction Status Date / Time codeine Allergy Severe Nausea & Verified 08/08/23 13:13 Vomiting hydrocodone bitartrate Allergy Severe Nausea & Verified 08/08/23 13:13 [From [place]] Vomiting levofloxacin [From Levaquin] Allergy Severe SEVERE Verified 08/08/23 13:13 VOMITING hydromorphone HCl Allergy seizures Verified 08/08/23 13:13 [From Dilaudid] morphine Allergy Rash/Hives Verified 08/08/23 13:13 acetaminophen [From Percocet] AdvReac N/V,Abdominal Verified 08/08/23 13:13 pain alcohol AdvReac MIGRAINES, Verified 08/08/23 13:13 N/V, SOB,abd pain ibuprofen [From Motrin] AdvReac ABD PAIN, Verified 08/08/23 13:13 ELEVATED LIVER ENZYMES, ULCERS Milk Containing Products AdvReac Nausea & Verified 08/08/23 13:13 (Dairy) Vomiting & [Dairy] Diarrhea,migraines,abd pain oxycodone [From Percocet] AdvReac N/V,Abdominal Verified 08/08/23 13:13 pain Physical Exam Vitals: Vital Signs Temp Pulse Pulse Resp BP BP Pulse Ox 08/09/23 02:02 98.1 F 57 L 16 100/62 96 08/08/23 19:19 97.9 F 55 L 16 110/74 97 08/08/23 16:30 97.8 F 55 L 16 113/70 100 08/08/23 16:16 65 18 115/78 98 08/08/23 13:49 63 16 112/80 98 08/08/23 13:30 75 20 154/90 98 08/08/23 13:02 70 18 141/86 98 08/08/23 12:23 74 16 125/74 98 08/08/23 12:21 97.4 F L 72 22 127/79 97 Intake and Output 08/08/23 08/09/23 08/09/23 22:59 06:59 14:59 Other: # Voids 1 1 Weight 90.718 kg Results 08/08/23 12:33 08/08/23 12:33 Cardiac Enzymes 08/08/23 08/08/23 08/08/23 Range/Units 12:33 12:33 15:16 AST 25 (14-36) U/L Troponin I <0.012 <0.012 (0.000-0.034) ng/mL 08/08/23 Range/Units 18:23 AST (14-36) U/L Troponin I <0.012 (0.000-0.034) ng/mL Coagulation 08/08/23 Range/Units 12:33 PT 10.1 (10.0-12.5) sec APTT 25.5 (22.0-30.0) sec CBC 08/08/23 Range/Units 12:33 WBC 9.1 (3.8-10.6) k/uL RBC 5.26 (3.80-5.40) m/uL Hgb 14.0 (11.4-16.0) gm/dL Hct 43.7 (34.0-46.0) % Plt Count 335 (150-450) k/uL Comprehensive Metabolic Panel 08/08/23 Range/Units 12:33 Sodium 139 (137-145) mmol/L Potassium 4.7 (3.5-5.1) mmol/L Chloride 109 H (98-107) mmol/L Carbon Dioxide 26 (22-30) mmol/L BUN 17 (7-17) mg/dL Creatinine 1.14 H (0.52-1.04) mg/dL Glucose 88 (74-99) mg/dL Calcium 9.4 (8.4-10.2) mg/dL AST 25 (14-36) U/L ALT 21 (4-34) U/L Alkaline Phosphatase 74 (38-126) U/L Total Protein 6.4 (6.3-8.2) g/dL Albumin 4.1 (3.5-5.0) g/dL Current Medications Generic Name Dose Route Start Last Admin Trade Name Rogerq PRN Reason Stop Dose Admin Aspirin 81 mg 08/09/23 09:00 Aspirin 81 Mg PO DAILY SAMI Calcium Carbonate/Glycine 500 mg 08/09/23 05:42 08/09/23 05:55 Calcium Carbonate 500 Mg Chewable PO 500 mg QID PRN Administration Heartburn Fluoxetine HCl 80 mg 08/08/23 21:00 08/08/23 20:32 Fluoxetine Hcl 20 Mg Cap PO 80 mg HS SAMI Administration Hydroxyzine HCl 50 mg 08/08/23 21:00 08/08/23 20:32 Hydroxyzine Hcl 25 Mg Tab PO 50 mg HS SAMI Administration Ketorolac Tromethamine 15 mg 08/08/23 14:39 08/09/23 05:58 Ketorolac 15 Mg/Ml 1 Ml Vial IVP 08/11/23 14:40 15 mg Q6HR PRN Administration Moderate Pain (Scale 4 to 6) Levothyroxine Sodium 25 mcg 08/09/23 06:30 08/09/23 05:56 Levothyroxine 25 Mcg Tab PO 25 mcg 0630 SAMI Administration Melatonin 20 mg 08/08/23 21:00 08/08/23 20:33 Melatonin 5 Mg Tablet PO 20 mg HS SAMI Administration Miscellaneous Information 1 each 08/08/23 13:47 Rx Info: Iv Contrast Was Given 1 Each [facility] [place] 08/10/23 13:47 DAILY PRN Per Protocol Naloxone HCl 0.2 mg 08/08/23 14:39 Naloxone 0.4 Mg/Ml 1 Ml Vial IV Q2M PRN Opioid Reversal Rimegepant Sulfate [ 75 mg 08/08/23 18:55 Nurtec Odt] 75 Mg PO Tablet Q48H PRN Migraine Headache Zolpidem Tartrate 10 mg 08/08/23 21:15 08/08/23 21:24 Zolpidem 5 Mg Tab PO 10 mg HS SAMI Administration Intake and Output 08/08/23 08/09/23 08/09/23 22:59 06:59 14:59 Other: # Voids 1 1 Weight 90.718 kg 08/08/23 12:33 08/08/23 12:33
[2023-08-09 10:14] LABS: BUN/Creat Ratio 16.55 Ratio (12.00-20.00); Blood Urea Nitrogen 18.2 mg/dL (9.0-27.0); Carbon Dioxide 21.3 mmol/L (21.6-31.8); Chloride 110 mmol/L (96-109); Glucose 86 mg/dL (70-110); Potassium 4.5 mmol/L (3.5-5.5); Sodium 141 mmol/L (135-145)
[2023-08-09 10:15] LABS: Calcium 9.2 mg/dL (8.7-10.3)
[2023-08-09 10:51] LABS: Basophils # (A) 0.04 X 10*3/uL (0.00-0.10); Basophils % (A) 0.5 %; HCT 40.6 % (37.2-46.3); HGB 12.9 g/dL (12.0-15.0); Lymphocytes # (A) 2.65 X 10*3/uL (0.90-5.00); Lymphocytes % (A) 35.4 %; MCH 26.7 pg (27.0-32.0); MCHC 31.8 g/dL (32.0-37.0); MCV 83.9 FL (80.0-97.0); Mean Platelet Volume 9.4 FL (9.5-12.2); Monocytes # (A) 0.77 X 10*3/uL (0.20-1.00); Monocytes % (A) 10.3 %; NRBC Per 100 WBC 0 X 10*3/uL (0.00-0.01); Neutrophils # (A) 3.71 X 10*3/uL (1.80-7.70); Neutrophils % (A) 49.5 %; Platelet Count 303 X 10*3/uL (140-440); RBC 4.84 X 10*6/uL (4.10-5.20); RDW 14.7 % (11.5-14.5); WBC 7.49 X 10*3/uL (4.50-10.00)
--- NOTE | 2023-08-09 12:57 | P.HPIM ---
History of Present Illness This is a pleasant 58 years old female with multiple medical problemsShe presents because of chest pain of 2 days duration About 4/10 in severity felt like pressure in the middle of the chest radiating to the left shoulder blade with no precipitating or relieving factors Associated with little dyspnea but no coughing No change in urine or bowel habits. No fever. No headache dizziness weakness or numbness Patient denies smoking alcohol or illicit drugs. Patient PCP is Dr. Sánchez Hemodynamically stable She has unremarkable labs with a CBC, INR, BMP and liver enzymes D-dimer negative at 0.[address] of the chest is negative for PE with no aortic dissection EKG sinus rhythm at [address]-T changes Chest x-ray is negative for acute process. Review of Systems Review of systems CONSTITUTIONAL: No fever, no malaise, no fatigue. HEENT: No recent visual problems or hearing problems. Denied any sore throat. CARDIOVASCULAR: No orthopnea, PND, no palpitations, no syncope. PULMONARY: No shortness of breath, no cough, no hemoptysis. GASTROINTESTINAL: No diarrhea, no nausea, no vomiting, no abdominal pain. Normoactive bowel sounds. NEUROLOGICAL: No headaches, no weakness, no numbness. HEMATOLOGICAL: Denies any bleeding or petechiae. GENITOURINARY: Denies any burning micturition, frequency, or urgency. MUSCULOSKELETAL/RHEUMATOLOGICAL: Denies any joint pain, swelling, or any muscle pain. ENDOCRINE: Denies any polyuria or polydipsia. Past Medical History Past Medical History: Eye Disorder, GERD/Reflux, Neurologic Disorder, Osteoarthritis (OA), Sleep Apnea/CPAP/BIPAP, Thyroid Disorder Additional Past Medical History / Comment(s): DOES NOT USE C-PAP,migraines, seasonal allergies, ALLERGY-induced asthma,RT EPI RETINAL MEMBRANE . Peptic ulcer disease with hemorrhage, HX H.Pylori, syringomyelia, chronic back pain, hemorrhoids, ddd, lumbar spondylosis. , stroke mar 2022. OSTEOPOROSIS. History of Any Multi-Drug Resistant Organisms: None Reported Past Surgical History: Adenoidectomy, Bladder Surgery, Cholecystectomy, Heart C atheterization, Hernia Repair, Hysterectomy, Orthopedic Surgery, Tonsillectomy, Tubal Ligation Additional Past Surgical History / Comment(s): Monarc procedure, Pubovaginal sli ng, UPPP for sleep apnea , A & P repair, laparoscopic lysis of adhesion 2, left heart catheterization 2006, EGD/colonoscopy last one 02/12/15, ORIF lt foot, lt shoulder sx 02/26/15, pain clinic injections, RFA LT lower back, HEART CATH 03/14/17-CLEAR, RFA RT LOWER BACK 03/22/17, 12/13/17, egd-04/09/17, HIATAL HERNIA REPAIR 07/09/17, pain clinic injections last 01/15/20 Past Anesthesia/Blood Transfusion Reactions: Previous Problems w/ Anesthesia, Family History of Problems w/ Anesthesia, Motion Sickness, Postoperative Nausea & Vomiting (PONV) Additional Past Anesthesia/Blood Transfusion Reaction / Comment(s): HAD TO HAVE BENADRYL AFTER LAST PAIN PROCEDURE (12/13/17) FOR SEVERE ITCHING. severe N/V with anesthesia-usually even with pre op measures. SISTER, MOTHER AND BROTHER ALL HAVE SEVERE PONV WITH ANESTHESIA Past Psychological History: Depression Additional Psychological History / Comment(s): pt stated she is maintained by medications Smoking Status: Former smoker Past Alcohol Use History: None Reported Additional Past Alcohol Use History / Comment(s): STARTED SMOKING AT AGE 15 SMOKED UP TO 2 PPD THEN QUIT IN 1997. Past Drug Use History: None Reported - Past Family History Father Family Medical History: Cancer, Myocardial Infarction ([place]) Additional Family Medical History / Comment(s): KIDNEY [place] Mother Family Medical History: Asthma, COPD, Eye Disorder, Fibromyalgia, GERD/Reflux Additional Family Medical History / Comment(s): AT AGE 75- RESP F AILURE(PAST HEAVY SMOKER) Sister(s) Family Medical History: Hypertension Brother(s) Family Medical History: No Reported History Daughter(s) Family Medical History: Cancer Additional Family Medical History / Comment(s): cervical Son(s) Family Medical History: No Reported History Medications and Allergies Home Medications Medication Instructions Recorded Confirmed Type Levothyroxine Sodium 25 mcg PO DAILY 11/14/16 08/08/23 History Zolpidem [Ambien] 10 mg PO HS 01/08/18 08/08/23 History Ergocalciferol [Vitamin D2 (1250 1,250 mcg PO FR 11/22/22 08/08/23 History Mcg = 16671 Iu)] FLUoxetine HCL [Prozac] 80 mg PO HS 11/22/22 08/08/23 History Rimegepant Sulfate [Nurtec Odt] 75 mg PO Q48H PRN 11/22/22 08/08/23 History Aspirin EC [Ecotrin Low Dose] 81 mg PO DAILY 08/08/23 08/08/23 History Melatonin 20 mg PO HS 08/08/23 08/08/23 History hydrOXYzine HCL [Atarax] 50 mg PO HS 08/08/23 08/08/23 History Allergies Allergy/AdvReac Type Severity Reaction Status Date / Time codeine Allergy Severe Nausea & Verified 08/08/23 13:13 Vomiting hydrocodone bitartrate Allergy Severe Nausea & Verified 08/08/23 13:13 [From [place]] Vomiting levofloxacin [From Levaquin] Allergy Severe SEVERE Verified 08/08/23 13:13 VOMITING hydromorphone HCl Allergy seizures Verified 08/08/23 13:13 [From Dilaudid] morphine Allergy Rash/Hives Verified 08/08/23 13:13 acetaminophen [From Percocet] AdvReac N/V,Abdominal Verified 08/08/23 13:13 pain alcohol AdvReac MIGRAINES, Verified 08/08/23 13:13 N/V, SOB,abd pain ibuprofen [From Motrin] AdvReac ABD PAIN, Verified 08/08/23 13:13 ELEVATED LIVER ENZYMES, ULCERS Milk Containing Products AdvReac Nausea & Verified 08/08/23 13:13 (Dairy) Vomiting & [Dairy] Diarrhea,migraines,abd pain oxycodone [From Percocet] AdvReac N/V,Abdominal Verified 08/08/23 13:13 pain Physical Exam Vitals: Vital Signs Temp Pulse Pulse Resp BP BP Pulse Ox 08/08/23 16:30 97.8 F 55 L 16 113/70 100 08/08/23 16:16 65 18 115/78 98 08/08/23 13:49 63 16 112/80 98 08/08/23 13:30 75 20 154/90 98 08/08/23 13:02 70 18 141/86 98 08/08/23 12:23 74 16 125/74 98 08/08/23 12:21 97.4 F L 72 22 127/79 97 Intake and Output 08/08/23 08/08/23 08/08/23 06:59 14:59 22:59 Other: Weight 90.718 kg 90.718 kg GENERAL: The patient is alert and oriented x3, not in any acute distress. Well developed, well nourished. HEENT: Pupils are round and equally reacting to light. EOMI. No scleral icterus. No conjunctival pallor. Normocephalic, atraumatic. No pharyngeal erythema. No thyromegaly. CARDIOVASCULAR: S1 and S2 present. No murmurs, rubs, or gallops. PULMONARY: Chest is clear to auscultation, no wheezing , no crackles. ABDOMEN: Soft, nontender, nondistended, normoactive bowel sounds. No palpable organomegaly. MUSCULOSKELETAL: No joint swelling or deformity. EXTREMITIES: No cyanosis, clubbing, or pedal edema. NEUROLOGICAL: Gross neurological examination did not reveal any focal deficits. SKIN: No rashes. no petechiae. 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
--- NOTE | 2023-08-09 13:02 | P.DS ---
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 Patient require stress test as an outpatient per air conditioning unit assembler who cleared her for discharge GERD Sleep apnea Hemorrhoids Chronic back pain History of spondylosis Hospital course: This is a pleasant 58 years old female with multiple medical problemsShe presents because of chest pain of 2 days duration About 4/10 in severity felt like pressure in the middle of the chest radiating to the left shoulder blade with no precipitating or relieving factors Patient evaluated by air conditioning unit assembler. Chest pain resolved today. Per air conditioning unit assembler patient does not want to do stress test today and wait till tomorrow because his holiday she wants to prefer to go home and do stress test as an outpatient. Patient confirms to me the same. She denies any other complaint and her and her want her to be discharged home today Patient cleared for discharge by air conditioning unit assembler Problems and management plan were discussed with the patient and he verbalized understanding and acceptance Patient was found stable and can be discharged home in guarded prognosis however he needs follow-up as an outpatient. Patient was instructed to follow up with PCP and Dr. Becerril air conditioning unit assembler within one week and patient agrees Physical exam Gen: patient is a AAOx3, no distress CVS: S1-S2, RRR, no murmur Lungs: B/L CTA, no wheezing Abdomen: soft, no distention, no tenderness, positive bowel sounds Extremity: no leg edema or induration Time spent more than 35 minutes Patient Condition at Discharge: Stable Plan - Discharge Summary Discharge Rx Participant: Yes New Discharge Prescriptions: Continue RX: Levothyroxine Sodium 25 mcg PO DAILY RX: Zolpidem [Ambien] 10 mg PO HS RX: Rimegepant Sulfate [Nurtec Odt] 75 mg PO Q48H PRN PRN Reason: Migraine Headache RX: FLUoxetine HCL [PROzac] 80 mg PO HS RX: hydrOXYzine HCL [Atarax] 50 mg PO HS RX: Aspirin EC [Ecotrin Low Dose] 81 mg PO DAILY RX: Ergocalciferol [Vitamin D2 (1250 Mcg = 93851 Iu)] 1,250 mcg PO FR RX: Melatonin 20 mg PO HS Discharge Medication List RX: Levothyroxine Sodium 25 mcg PO DAILY 11/14/16 [History] RX: Zolpidem [Ambien] 10 mg PO HS 01/08/18 [History] RX: Ergocalciferol [Vitamin D2 (1250 Mcg = 98921 Iu)] 1,250 mcg PO FR 11/22/22 [History] RX: FLUoxetine HCL [PROzac] 80 mg PO HS 11/22/22 [History] RX: Rimegepant Sulfate [Nurtec Odt] 75 mg PO Q48H PRN 11/22/22 [History] RX: Aspirin EC [Ecotrin Low Dose] 81 mg PO DAILY 08/08/23 [History] RX: Melatonin 20 mg PO HS 08/08/23 [History] RX: hydrOXYzine HCL [Atarax] 50 mg PO HS 08/08/23 [History] Follow up Appointment(s)/Referral(s): Chance Becerril MD [Medical Doctor] - 1 Week (We recommend stress test as an outpatient) Tacos Sánchez DO [Primary Care Provider] - 1-2 days Activity/Diet/Wound Care/Special Instructions: heart healthy diet activity is restricted till you see your doctor Discharge Disposition: HOME SELF-CARE
== END 2023-08-09 13:25 | disposition home or self-care (01) ==
LOC: EC 12:20 → 6NMEDSUR 14:40
PROVIDERS: ADMIT Internal Medicine; ATTEND Internal Medicine
DX: R07.89 Other chest pain (principal); I08.3 Combined rheumatic disorders of mitral, aortic and tricuspid valves; K21.9 Gastro-esophageal reflux disease without esophagitis; E07.9 Disorder of thyroid, unspecified; G47.30 Sleep apnea, unspecified; K64.9 Unspecified hemorrhoids; G89.29 Other chronic pain; M47.816 Spondylosis without myelopathy or radiculopathy, lumbar region; M19.90 Unspecified osteoarthritis, unspecified site; E66.9 Obesity, unspecified; Z68.37 Body mass index [BMI] 37.0-37.9, adult; Z79.82 Long term (current) use of aspirin; Z79.890 Hormone replacement therapy; Z79.899 Other long term (current) drug therapy; Z88.6 Allergy status to analgesic agent; Z88.1 Allergy status to other antibiotic agents; Z91.011 Allergy to milk products; Z88.5 Allergy status to narcotic agent; Z91.048 Other nonmedicinal substance allergy status; Z87.891 Personal history of nicotine dependence; Z87.11 Personal history of peptic ulcer disease; Z86.73 Personal history of transient ischemic attack (TIA), and cerebral infarction without residual deficits
CPT/HCPCS: 96376 ×2; 96374; 96375; 99285; 36415; 93005; 85379; 83880; 80053; 80048; 83690; 83735; 84484; 85025 ×2; 85610; 85730; 71046; 71260; G0378 ×2; J2405; J3010; J1885 ×2; Q9967

== ENCOUNTER → 2023-08-28 | Outpatient (CLI) | payer MEDICAID ==
--- NOTE | 2023-08-28 17:33 | CA ---
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 LV Systolic Volume MOD 4C 37.8 cm??? LV Ejection Fraction MOD 4C 56.8 % LV Cardiac Index MOD 4C 1411.2 cm???/min???m??? LV Diastolic Length 4C 7.5 cm LV Systolic Length 4C 5.8 cm LV Diastolic Volume MOD 2C 62.4 cm??? LV Systolic Volume MOD 2C 17.1 cm??? LV Ejection Fraction MOD 2C 72.6 % LV Cardiac Index MOD 2C 1289.5 cm???/min???m??? LV Diastolic Length 2C 6.4 cm LV Systolic Length 2C 4.8 cm LA Volume 45.0 cm??? 18 - 58 / 22 - 52 cm??? LA Volume Index 22.9 cm???/m??? 16 - 28 cm???/m??? M-MODE Aortic Root Diameter MM 2.9 cm AV Cusp Separation MM 2.3 cm DOPPLER AI Peak Velocity 212.0 cm/s AI Peak Gradient 18.0 mmHg AI Pressure Half Time 632.5 ms MV Area PHT 2.7 cm??? Mitral E Point Velocity 86.4 cm/s Mitral A Point Velocity 69.1 cm/s Mitral E to A Ratio 1.2 MV Deceleration Time 280.0 ms TR Peak Velocity 204.6 cm/s TR Peak Gradient 16.7 mmHg Right Ventricular Systolic Press 21.7 mmHg FINDINGS Left Ventricle Left ventricular ejection fraction is estimated at 60-65 %. Left ventricular cavity size normal. Left ventricular wall thickness normal. Normal left ventricular wall motion. Right Ventricle Normal right ventricular size and function. Right ventricular systolic pressure within normal limits. Right Atrium Normal right atrial size. No right atrial thrombus or mass seen. Left Atrium Normal left atrial size. No left atrial thrombus or mass present. Mitral Valve Structurally normal mitral valve. Trace to mild mitral regurgitation. Aortic Valve Trileaflet aortic valve. Mild aortic regurgitation. Tricuspid Valve Structurally normal tricuspid valve. Mild tricuspid regurgitation. Pulmonic Valve Structurally normal pulmonic valve. Trace pulmonic regurgitation. Pericardium No pericardial effusion. No pleural effusion. Aorta Normal size aortic root and proximal ascending aorta. CONCLUSIONS Normal LV Previewed by: Dr. Rip Pereira MD (Electronically Signed) Final Date: 28 August 2023 17:32
== END | disposition home or self-care (01) ==
LOC: RADECHMAIN 13:01
PROVIDERS: ATTEND Student in an Organized Health Care Education/Training Program
DX: I20.9 Angina pectoris, unspecified (principal)
CPT/HCPCS: 93306

== ENCOUNTER → 2023-09-14 | Outpatient (CLI) | payer MEDICAID ==
[~2023-09-14] MED LIST changes: +ATROPINE SULFATE 0.1 MG/ML 10ML SYRINGE ONE; +DOBUTamine DRIP for NUC MED 500 MG/250 ML BAG IV ONE; -SODIUM CHLORIDE 0.9% 500 ML 500 ML in EMPTY BAG 1 BAG IV PRN; -ZOLEDRONIC ACID 5 MG in SODIUM CHLORIDE 0.9% 100 ML IV NR
== END | disposition home or self-care (01) ==
LOC: RADNMMAIN 08:50
PROVIDERS: ATTEND Student in an Organized Health Care Education/Training Program
DX: I20.9 Angina pectoris, unspecified (principal)
CPT/HCPCS: 93351; J1250; J0461

== ENCOUNTER 2023-10-26 08:20 | Day surgery (SDC) | payer MEDICAID ==
[2023-10-22 14:07] VITALS: BMI 35.6
[2023-10-26] MEDS: IV FLUID CONTINUATION 1,000 ML IV ONE (08:45)
[2023-10-26] MEDS: ONDANSETRON 4 MG/2 ML VIAL IVP STA (08:55)
[2023-10-26] MEDS: LACTATED RINGERS 1,000 ML IV SCH (08:55)
[2023-10-26] MEDS: SCOPOLAMINE 1 MG/72 HR PATCH TRANSDERM STA (08:56)
[2023-10-26 09:02] VITALS: TEMP 97.6
[2023-10-26] MEDS ORDERED: PROPOFOL 10 MG/ML 20 ML VIAL IV ONE (09:19)
[2023-10-26] MEDS ORDERED: LIDOCAINE 2% (PF) 20 MG/ML 5 ML VIAL ONE (09:19)
[2023-10-26] MEDS: LACTATED RINGERS 1,000 ML IV ONE ×2 (09:20→09:29)
--- NOTE | 2023-10-26 09:28 | P.PCN ---
Date of Procedure: 10/26/23 Procedure(s) Performed: BRIEF HISTORY: Patient is a 58-year-old, pleasant, white female scheduled for an upper endoscopy as a part evaluation of longstanding history of GERD and intermittent atypical chest pain for the last 2 months duration.. She has been taking Protonix and Carafate as needed. She has been experiencing diarrhea with PPIs and hence has been taking the Protonix only as needed. PROCEDURE PERFORMED: Esophagogastroduodenoscopy with biopsy. PREOPERATIVE DIAGNOSIS: GERD/atypical chest pain. IV sedation per anesthesia. PROCEDURE: After informed consent was obtained, the patient was brought into the endoscopy unit. IV sedation was administered by Anesthesia under continuous monitoring. Initially the Olympus GIF-140 video endoscope was inserted into the mouth. Esophagus intubated without any difficulty. It was gradually advanced into the stomach and duodenum and carefully examined. The bulb and the second part of the duodenum appeared normal. The scope at this time was withdrawn to the stomach, adequately insufflated with air, and upon careful examination, mucosa of the antrum scattered erosions and gastritis and biopsies were done from this area. Mucosa of the, body, cardia and the fundus appeared normal. The scope was then withdrawn into the esophagus.. Small hiatal hernia noted.. The GE junction was located at 39 cm from the incisors. The esophagus appeared normal. There were no erosions or ulcerations seen biopsies were done from the esophagus and the patient tolerated the procedure well. IMPRESSION: 1. Antral erosive gastritis. 2. Small hiatal hernia but no evidence of esophagitis or Vasquez's is. RECOMMENDATIONS: The findings of this examination were discussed with the patient as well as her family. She was advised to start on Pepcid 20 mg twice daily and follow antireflux measures and use Protonix as needed..
[2023-10-26 09:48] VITALS: RESP 18
[2023-10-26 10:08] VITALS: BP 142/72; PULSE 65
== END 2023-10-26 10:35 | disposition home or self-care (01) ==
LOC: ORWHC2ENDO 08:20
PROVIDERS: ATTEND Internal Medicine Gastroenterology
DX: K29.50 Unspecified chronic gastritis without bleeding (principal); K21.9 Gastro-esophageal reflux disease without esophagitis; K44.9 Diaphragmatic hernia without obstruction or gangrene; G47.33 Obstructive sleep apnea (adult) (pediatric); I67.9 Cerebrovascular disease, unspecified; E07.9 Disorder of thyroid, unspecified; M54.50 Low back pain, unspecified; Z79.890 Hormone replacement therapy; Z79.899 Other long term (current) drug therapy; Z88.5 Allergy status to narcotic agent; Z88.6 Allergy status to analgesic agent; Z88.1 Allergy status to other antibiotic agents
CPT/HCPCS: 43239; 88305; 88342

== ENCOUNTER → 2024-01-02 | Outpatient (CLI) | payer MEDICAID ==
[2024-01-02 10:28] LABS: Basophils # (A) 0.05 X 10*3/uL (0.00-0.10); Basophils % (A) 0.8 %; Eosinophils # (A) 0.27 X 10*3/uL (0.04-0.35); Eosinophils % (A) 4.3 %; HCT 43.8 % (37.2-46.3); Lymphocytes # (A) 1.76 X 10*3/uL (0.90-5.00); Lymphocytes % (A) 28.3 %; MCH 25.5 pg (27.0-32.0); MCV 79.9 FL (80.0-97.0); Mean Platelet Volume 8.6 FL (9.5-12.2); Monocytes # (A) 0.58 X 10*3/uL (0.20-1.00); Monocytes % (A) 9.3 %; NRBC Per 100 WBC 0 X 10*3/uL (0.00-0.01); Neutrophils # (A) 3.55 X 10*3/uL (1.80-7.70); Platelet Count 354 X 10*3/uL (140-440); RBC 5.48 X 10*6/uL (4.10-5.20); RDW 14.6 % (11.5-14.5); WBC 6.23 X 10*3/uL (4.50-10.00)
[2024-01-02 11:10] LABS: ALT 22 U/L (8-44); AST 24 U/L (13-35); Albumin 4.1 g/dL (3.8-4.9); Albumin/Globulin Ratio 2.05 Ratio (1.60-3.17); Alkaline Phosphatase 88 U/L (41-126); Blood Urea Nitrogen 14.3 mg/dL (9.0-27.0); Calcium 9.2 mg/dL (8.7-10.3); Chloride 111 mmol/L (96-109); Glucose 97 mg/dL (70-110); Potassium 4.3 mmol/L (3.5-5.5); Sodium 142 mmol/L (135-145); Total Bilirubin 0.2 mg/dL (0.3-1.2); Total Protein 6.1 g/dL (6.2-8.2)
[2024-01-02 12:29] LABS: INR 0.98 sec (0.93-1.11); Prothrombin Time 10.6 sec (9.9-11.9)
== END | disposition home or self-care (01) ==
LOC: LABWHC1 08:00
PROVIDERS: ATTEND Internal Medicine
DX: Z01.812 Encounter for preprocedural laboratory examination (principal)
CPT/HCPCS: 36415; 80053; 82306; 85025; 85610

== ENCOUNTER → 2024-01-17 | Outpatient (CLI) | payer MEDICAID | END | disposition home or self-care (01) | LOC: LABPAT 14:50 | PROVIDERS: ATTEND Orthopaedic Surgery | DX: Z01.818 Encounter for other preprocedural examination (principal); Z22.322 Carrier or suspected carrier of Methicillin resistant Staphylococcus aureus; M48.02 Spinal stenosis, cervical region; M47.22 Other spondylosis with radiculopathy, cervical region | CPT/HCPCS: 86850; 86900; 86901; 87070 ==

== ENCOUNTER 2024-01-24 09:01 | Day surgery (SDC) | payer MEDICAID ==
[2024-01-21 08:29] VITALS: BMI 38.7
--- NOTE | 2024-01-23 22:56 | P.HPOR ---
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 Reports ongoing posterior neck pain (VAS 6/10) radiating to bilateral shoulders with numbness down both arms, exacerbated by neck movement. Symptoms include frequent headaches and sleep disturbances. Currently manages pain with Aleve and aspirin. 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 Work restrictions limit lifting to 20 lbs. Physical exam shows 4/5 strength in bilateral upper extremities, positive Spurling's sign, restricted cervical ROM, and Merrill's sign present on left. Imaging (MRI 08/03/23) demonstrates C4-C7 spondylosis with grade 1 spondylolisthesis at C4-C5, severe stenosis at C5-C6, and moderate stenosis at C6-C7, with evidence of myelomalacia. Flattening of normal cervical lordosis noted. Patient has continued neurological deterioration despite conservative measures and has elected to proceed with surgical intervention. Planned procedure: C4-7 anterior cervical discectomy and fusion (ACDF) with instrumentation (CPT 91324, 07603 x2, 18969), including structural allograft (67825). Pre-operative workup includes labs, EKG, CXR, and NSQUIP evaluation. Notable comorbidity includes BMI 34.96. Medications include Prozac, levothyroxi ne, hydroxyzine, and zolpidem. All surgical risks discussed with patient including potential complications related to positioning, anesthesia, hardware placement, and post-operative recovery. Patient understands and wishes to proceed. 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 Robison presents to the office today, 01/16/24, for a pre-operative appointment preceding her C4-7 ACDF. She notes continued posterior neck pain that radiates across bilateral shoulders. She also notes numbness that radiates down both of her arms. She states her pain is increased with turning her neck from the left to the right as well as up and down. She notes that ice provides mild relief of her symptoms. She notes frequent headaches and sleep disturbances due to her ongoing neck pain. She currently takes aleve and aspirin for her o ngoing symptoms and pain. H8 Patient denies any f/c/sob/cp, perineal numbness or tingling, bowel, or bladder incontinence/retention. Patient is ambulatory P1 The patients past social, medical, family, surgical history, as well as review of systems, have been reviewed. Please refer to the History and Physical form that has been scanned into our electronic medical record system. R0 16 points review of systems completed and as stated in HPI, all other systems reviewed are negative. PAST TREATMENTS: PAST IMAGING: YES -MRI, XR TRAUMA RELATED: NO - WORK RELATED: NO - PT IN LAST 6 MONTHS: YES -two rounds of 12 visits last visit 2 months ago. Initially helped her but now makes her worse and her sx have progressed. PHYSICIAN DIRECTED HOME EXERCISE PROGRAM: YES -no improvement ACTIVITY MODIFICAITON: YES -limiting her BLTPP to 20 lbs and less. She is currently on restrictions at work. She continues to have pain despite restricted activity she is not able to do her activities of daily living that she likes to do normally MEDICATIONS: YES - ALTERNATIVE INTERVENTIONS (CHIROPRACTIC, ACCUPUNCTURE, MASSAGE, RICE): YES -chiropractics with similar resutsl BRACING: NO - INJECTIONS (MAURICE, TF, RFA): YES -in the past, did not work MEDICAL HISTORY: Past Medical History: REVIEWED STATED IN CHART Past Surgical History: REVIEWED STATED IN CHART Social History: REVIEWED STATED IN CHART SMOKING: Never smoker ETOH: None SUBSTANCES: None Family History: REVIEWED STATED IN CHART P1 Current Medications: Rx: PROzac 40 mg capsule Ref: 0 Instructions: Take 2 Capsule ORAL at bedtime. Rx: Calcium Adult Ref: 0 Rx: hydroxyzine 25 mg , Ref: 0 Instructions: BID Rx: levothyroxine 25 mcg tablet Ref: 0 Instructions: take 1 tablet (25 mcg) by oral route once daily Rx: multivitamin Ref: 0 Rx: zolpidem 10 mg tablet Ref: 0 Instructions: take 1 tablet (10 mg) by oral route once daily at bedtime Rx: ketorolac 10 mg tablet Ref: 0 Instructions: take 1 tablet (10 mg) by oral route 2 times per day as needed for up to 5 days total use Rx: TylenoL Ref: 0 Rx: naproxen sodium 220 mg tablet Ref: 0 Instructions: take 1 tablet (220 mg) by oral route every 12 hours as needed P1 PHYSICAL EXAM: General: AOX3, NAD, Well hydrate, well nourished HEENT: No lumps or masses Extremities: No color changes, no pooling Heart: RRR, no murmur, no gallop Lungs: CTAB, no w/r/r INTEGUMENT: Appearance: Normal color and turgor Surgical Incisions: Hairy Patches: ABSENT Dorsal Skin Dimples: Normal [employer] spots: ABSENT PALPATION: TTP Midline: NO Paracervical: YES Parathoracic: NO Paralumbar: NO SIJ: NT POSTURAL BALANCE: Coronal: BALANCED Sagittal: BALANCED Shoulder height: LEVEL Pelvic Girdle: LEVEL ROM AND APPEARANCE: Neck: RESTRICTED Lumbar: UNRESTRICTED Shoulders: Symmetrical Hips: Symmetrical Knees: Symmetrical Hands: Symmetrical Feet: Symmetrical VASCULAR STATUS: PALPABLE PULSES B/L UE AND LE 2/4 RAD/ULNAR/DP/PT Edema: NONE NEUROLOGICAL EXAMINATION: Mental Status: Awake, alert, fully oriented with normal attention, concentr ation, and memory. Fluent appropriate speech. CRANIAL NERVES: I: Olfactory not assessed. II: Visual acuity normal, no visual field deficit noted with confrontation. III, IV: Normal pupillary reflexes & intact extraocular movements without nystagmus. V, : Intact symmetrical facial sensation. VII: Intact symmetrical facial motor movement: Hearing intact. IX, X: Intact gag, swallow, & normal voice. XI: Sternocleidomastoid, trapezius function intact. XII: Tongue midline with normal movements. TENSIONING: * L'HERMITTE'S SIG:NEG SPURLUNG'S SIGN:POS CUBITAL TUNNEL COMPRESSION:NEG TINELS AT WRIST:NEG STRAIGH LEG RAISE:NEG CONTRALATERAL STRAIGHT LEG RAISE: NEG MOTOR EXAM (0-5/5, NT) Muscle appearance: Symmetrical, without signs of atrophy or dystrophy UPPER EXTREMITY RIGHT LEFT Shoulder Abduction 4 4 Biceps 4 4 Triceps 4 4 Wrist Extension 4 4 Hand Intrinsics 4 4 Precision Layout Worker 4 4 LOWER EXTREMITY RIGHT LEFT Hip Flexion 5 5 Knee Extension 5 5 Knee Flexion 5 5 Dorsiflexion 5 5 Plantarflexion 5 5 EHL 5 5 FHL 5 5 REFLEXES (0-4/2, NT): RIGHT LEFT Bicep 2 2 Brachioradialis 2 1 Triceps 1 1 Patellar 2 2 Achilles 2 2 PATHOLOGICAL REFLEXES: RIGHT LEFT MERRILL'S ABSENT PRESENT CLONUS ABSENT ABSENT BABINSKI ABSENT ABSENT RECTAL TONE: INTACT/NT SENSATION (0-4, NT): Sensation intact to LT and Pain * C5-T1 distribution BUE * L2-S2 distribution BLE *Exceptions below* DERMATOMAL DEFICIT/RADICULAR PATTERN: GAIT AND FUNCTIONAL EVALUATION: AMBULATORY AID INDEPENDENT ROMBERG'S TEST INTACT HAND AND FINGER DEXTERITY INTACT YES DYSDIADOCHOKINESIA EXAM NEG B/L YES TOE/HEEL WALK INTACT WITH GOOD BALANCE YES SQUAT AND RISE W/O ASSISTANCE TO 60 DEG KNEE FLEXION YES SINGLE LEG STANCE INTACT TRENDE[place]G NEG IMAGING: X-rays done of the cervical spine at [facility] on 07/23/2023 Views: AP/lateral/flexion/extension/oblique Findings: These are reviewed in the office with the patient and demonstrate multilevel degenerative changes from C4-C7. There is moderate to severe facet arthrosis related to these degenerative changes. Grade 1 spondylolisthesis noted at C4-C5 with spondylosis and disc collapse. This is accentuated on flexion films and reduced partially on extension films. Severe spondylosis C5- C6 noted with severe disc collapse facet arthrosis foraminal stenosis anterior and posterior osteophytic changes. C6-C7 sews spondylosis as well as moderate. Moderate to severe facet arthrosis with foraminal stenosis as well. Disc height collapse noted. Occipital cervical C1-2 joints remain stable. No acute fracture noted. No lesions. MRI C-spine T-spine without contrast done on 08/03/2023 at [facility] Findings: These were reviewed in the office with the patient and demonstrate C4- C7 spondylosis with degenerative changes related to disc height loss disc desiccation and severe collapse. C4-C5 shows again grade 1 spondylolisthesis which is unstable and partially reduced on the supine film causing bilateral foraminal stenosis as well as central stenosis that is moderate to marked. C5- C6 shows severe spondylosis disc collapse central and foraminal stenosis. C6-C7 shows moderate spondylosis with moderate disc collapse and moderate central and bilateral foraminal stenosis. Flattening of the normal cervical lordosis related to the listhesis as well as collapse. No severe cord signal changes although the patient at one point was told she had a syrinx of which is not visible at this time there are some cord signal changes up around C3-C4 and C4- C5 which may be related or could be related to her spondylolisthesis causing myelomalacia. No other acute findings no fracture or dislocation occipital cervical C1-2 joints appear stable. IMPRESSION: It was my pleasure to have seen and examined Karla. I reviewed the patient's clinical syndrome, physical findings, and imaging studies during the appointment today. It is my impression that the patient has a diagnosis of. 1.C4-C7 spondylolistheis 2.C4-C7 spondylosis and stenosis 3.Upper extremity radiulopathy PLAN: DISCUSSION: -I have discussed at length with the pt treatment options as well as risks and benefits of these. She has thus far failed conservative care in the form of Rx, OTC medications on multiple occations. She has done PT and Home exercises to no terminal block assembler benefit and infact PT has made her worse lately. She has had multiple attempts at chiropractics and massage of which she was unable to tolerate. She continues to have progressive sx despite these exhaustive conservative measures. She has reached the point of dimished returns from her conservative care and she is ready to progress to surgical treatment for her issues. Neurologically she continues to deteriorate and so she has elected to proceed as below. SURGICAL RECOMMENDATION -C4-7 ANTERIOR CERVICAL DISCECOMTY AND FUSION Surgical Procedure Risk Review Karla Robison is a 58 year old female presenting for evaluation of progressive onset of Neck pain, UE weakness and paresthesias with progressive radiculopathy of the BUE. It was my pleasure to have seen and examined Ms. Robison. In our visit today we have had a chance to go over subjective complaints, physical examination findings and treatments, including the natural course history without intervention and various interventional options. The imaging demonstrates C4-7 degenerative changes with disc collapse, degenerative HNP with stenosis central and foraminal that is moderate to severe. Flattened CL due to the collapse along with facet arthrosis, Axial neck pain due to the collapse and degenerative changes as well . On physical exam, Ms. Robison demonstrates Pain with ROM of the neck, limited ROM due to the pain. COntinued progressive neurological deterioration despite conservative measues. UE radiculopathy. UE weakness. I explained to the patient that as her condition progresses it could cause Progressive changes, increased pain, natural course of deterioration . At this time, based on the patients imaging and physical exam, I recommend surgery in the form or a: C5-7 ANTERIOR CERVICAL DISCECOMTY AND FUSION . I discussed the risk and benefits of this procedure at length with Ms. Robison. The patient agreed to consider pursuing the procedure mentioned above. Plan: 1. C4-7 ANTERIOR CERVICAL DISCECOMTY AND FUSION 2. Follow up with PCP for surgical clearance 3. Review of surgical risks and benefits as well as an educational packet on the proposed surgical procedure. 4. PRE OP LABS, EKG, CXR 5. NSQUIP EVAL Risks: All surgical procedures come with inherent risks, including those related to positioning, anesthesia, intraoperative findings, and postoperative complications. It is important to understand that surgery does not come with any guarantee of a successful outcome as complications and adverse events are always possible. The patient was given a handout in office today discussing the surgical procedure and risks associated with the intervention, both of which were discussed with the patient. These risks include but are not limited to the following: ? Experiencing same, different or even worse symptoms in back, neck, arms, or legs compared to before surgery. ? Requiring further surgery or other forms of treatment presently or at some time in the future at same or other levels of the intended spine surgery. ? On an extreme but fortunately relatively rare basis severe complication such as blindness, stroke, heart attack, temporary and/or permanent nerve injury, paralysis, coma, or may occur, sometimes without known explanation. ? Surgical complications may include but are not limited to risk of infection, fluid accumulation in the surgical dissection site, including a seroma or hematoma, that requires additional surgery, wound drainage, bleeding, new numbness or weakness, vision changes/loss, spinal fluid leakage, non-healing and/or infected incision, headaches, difficulty or inability to swallow, hoarseness, hemopneumothorax, pneumothorax, impotence, retrograde ejaculation, vaginal dryness; injury to nerves, spinal cord, blood vessels, lymphatics or other vital organs (i.e., bowel injury, injury to the great vessels); heterotopic bone formation; complications related to the hardware such as screws, rods, cages including misplaced hardware, device failure, instrumentation at the wrong spine level, hardware fracture/breakage, or hardware loosening; vertebral failure of the spinal column above or below the newly placed hardware; retained surgical instrumentations or devices and the need for further surgery. ? Medical risks of the planned spine surgery include but are not limited to generalized Infections to the whole body or local areas outside of the surgical site (sepsis), heart attack, bleeding, anaphylaxis, meningitis, seizure, epilepsy, hearing loss, burn hare, laceration of the head or other areas of the body, bruising, hypersensitivity of the skin, bladder over distension; allergic reaction; shoulder injury related to positioning; fat, blood and air clots to other areas of the body like heart, lungs, brain; failure of internal organs such as lungs, kidneys, liver and excessive bleeding. If blood transfusions are necessary, note that transfusions may cause intolerance reactions such as anaphylaxis or other complex reactions. Despite best efforts, the results of spine surgery might not heal in terms of bone, soft tissues such as skin, fascia, ligaments, and joints. Additionally, in order to achieve best possible results, spine surgery may be carried out beyond the initially planned levels and involve decompression, fusion including insertion of hardware at levels other than the original intended area of surgical interest change some portions of the procedure in order to ensure the best possible outcomes. With spine surgery and spinal fusion, there are different off label uses of instrumentation (devices, implants and hardware) as well as biological substances (bone morphogenic proteins, demineralized bone matrix) as well as using extra bone from allograft sources (i.e. cadaver bone) or autograft (iliac crest bone, ribs, or the spine itself). The patient has been given information about these practices and their inherent risks and benefits. [facility] Physician Assistants are medically trained surgical providers who function in the outpatient, inpatient, and operating room setting under the direct supervision of the attending surgeon.They assist in the operating room with direct supervision of the attending surgeons. The patient has had a chance to review all the listed information, has been given print outs detailing this information, and has had all his/her questions answered to their satisfaction. It was my pleasure to have seen and examined Ms. Robison. In our visit today we have had a chance to go over my understanding of our patient's current condition, the natural course history without intervention and various interventional options. Questions were invited and answered, and the patient wishes to proceed as outlined above. I have seen and examined the patient for 25 minutes and we have spent more than 50% of the time in repeat and detailed counseling about the patient's condition, its natural course history with out and as much as can be predicted with surgery and re-review of various surgical treatment options. In conclusion,Ms. Robison and her spouse/partner requested we proceed with the above suggested surgery and are willing to accept risks and limitations of the suggested surgery as nature of the disease process and our best attempts at treatment for the condition. Coding Rationale for Cervical Surgery Primary Diagnoses (ICD-10): * M43.12 - Spondylolisthesis, cervical region (C4-C5) M47.812 - Spondylosis without myelopathy or radiculopathy, cervical region (C4- C7) M50.12 - Cervical disc disorder with radiculopathy (C4-C7) M48.02 - Spinal stenosis, cervical region Surgical Procedure CPT Codes: Primary Procedure: * 40791 - Anterior cervical discectomy and fusion (ACDF), including disc space preparation, osteophytectomy for decompression of spinal cord/nerve roots, single interspace (C4-C5) Additional Level Add-on Codes: * 18522 - ACDF, each additional interspace (List separately in addition to code for primary procedure) * Use twice for C5-C6 and C6-C7 levels Instrumentation: * 22399 - Anterior instrumentation; 2-3 vertebral segments (for plate fixation) Structural Allograft: * 75629 - Allograft, structural, for spine surgery only (List separately in addition to code for primary procedure) Bone Marrow Aspiration (if performed): * 67014 - Bone marrow aspiration for bone grafting, spine surgery only, through separate skin or fascial incision Note: Some payers may consider 42041 and 74164 as inclusive to the primary procedure Supporting Documentation for Diagnoses: Medical Necessity Established by: * Progressive Neurological Symptoms Upper extremity weakness (4/5 strength in multiple muscle groups) Bilateral upper extremity radiculopathy Progressive neurological deterioration documented Numbness radiating down both arms Imaging Findings (MRI 08/03/23) C4-C5: Grade 1 spondylolisthesis with bilateral foraminal and moderate to marked central stenosis C5-C6: Severe spondylosis, disc collapse, central and foraminal stenosis C6-C7: Moderate spondylosis, disc collapse, central and bilateral foraminal stenosis Cord signal changes at C3-C4 and C4-C5 suggesting myelomalacia Physical Exam Findings Positive Spurling's sign Restricted cervical ROM Motor weakness in upper extremities (4/5 throughout) Decreased reflexes (1+ triceps bilaterally) Failed Conservative Treatment Physical therapy: Two rounds of 12 visits, last visit 2 months ago Medications: NSAIDs, muscle relaxants 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 Home exercise program Previous injections Surgical Procedure Rationale: The planned C4-7 ACDF is supported by: * Multiple level involvement (C4-C7) Presence of instability (spondylolisthesis) Progressive neurological deficit Failed conservative management Correlated imaging findings with clinical symptoms Appropriate preoperative workup ordered Pre-op labs EKG CXR NSQIP evaluation Modifiers/Additional Codes: * Will Consider medical comorbidities for risk adjustment based on NSQUIP score BMI 34.96 (obesity) as complicating factor FOLLOW UP: POST-OP PLAN AT NEXT VISIT: RECHECK/POST-OP PATIENT EDUCATION: Medications Reviewed: YES In our visit today Ms. Robison and I have had a chance to go over my understanding of the patient's current condition, the natural course history without intervention and various interventional options. Questions were invited and answered, and the patient wishes to proceed as outlined above. I will be sure to keep you updated after Ms. Robison returns here for further follow-up. Thank you again for your referral. Please do not hesitate to contact me if you have any further questions. Signed and authenticated by: Chelly Baker [facility] [address] [place] [address] . This message is confidential, intended only for the named recipient(s) and may contain information that is privileged or exempt from disclosure under applicable law. If you are not the intended recipient(s), you are notified that the dissemination, distribution or copying of this information is prohibited. If you received this message in error, please notify the sender then delete this message. # SIGNED BY Chelly Ricks (REYO)01/22/2024 06:07PM Past Medical History Past Medical History: CVA/TIA, Eye Disorder, GERD/Reflux, Neurologic Disorder, Osteoarthritis (OA), Sleep Apnea/CPAP/BIPAP, Thyroid Disorder Additional Past Medical History / Comment(s): DOES NOT USE C-PAP,migraines, seasonal allergies, ALLERGY-induced asthma,RT EPI RETINAL MEMBRANE . Peptic ulcer disease with hemorrhage, HX H.Pylori, syringomyelia, chronic back pain, hemorrhoids, ddd, lumbar spondylosis. 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 OSTEOPOROSIS. History of Any Multi-Drug Resistant Organisms: None Reported Past Surgical History: Adenoidectomy, Bladder Surgery, Cholecystectomy, Heart Catheterization, Hernia Repair, Hysterectomy, Orthopedic Surgery, Tonsillectomy, Tubal Ligation Additional Past Surgical History / Comment(s): Monarc procedure, Pubovaginal sling, UPPP for sleep apnea , A & P repair, laparoscopic lysis of adhesion 2, left heart catheterization 2006, EGD/colonoscopy last one 02/12/15, ORIF lt foot, lt shoulder sx 02/26/15, pain clinic injections, RFA LT lower back, HEART CATH 03/14/17-CLEAR, RFA RT LOWER BACK 03/22/17, 12/13/17, egd-04/09/17, HIATAL HERNIA REPAIR 07/09/17, pain clinic injections last 01/15/20 Past Anesthesia/Blood Transfusion Reactions: Previous Problems w/ Anesthesia, Family History of Problems w/ Anesthesia, Motion Sickness, Postoperative Nausea & Vomiting (PONV) Additional Past Anesthesia/Blood Transfusion Reaction / Comment(s): HAD TO HAVE BENADRYL AFTER LAST PAIN PROCEDURE (12/13/17) FOR SEVERE ITCHING. severe N/V with anesthesia-usually even with pre op measures. SISTER, MOTHER AND BROTHER ALL HAVE SEVERE PONV WITH ANESTHESIA Smoking Status: Former smoker - Past Family History Father Family Medical History: Cancer, Myocardial Infarction ([place]) Additional Family Medical History / Comment(s): KIDNEY [place] Mother Family Medical History: Asthma, COPD, Eye Disorder, Fibromyalgia, GERD/Reflux Additional Family Medical History / Comment(s): AT AGE 75- RESP FAILURE(PAST HEAVY SMOKER) Sister(s) Family Medical History: Hypertension Brother(s) Family Medical History: No Reported History Daughter(s) Family Medical History: Cancer Additional Family Medical History / Comment(s): cervical Son(s) Family Medical History: No Reported History Medications and Allergies Home Medications Medication Instructions Recorded Confirmed Type Levothyroxine Sodium 25 mcg PO QAM 11/14/16 01/21/24 History Zolpidem [Ambien] 10 mg PO HS 01/08/18 01/21/24 History FLUoxetine HCL [PROzac] 80 mg PO HS 11/22/22 01/21/24 History Rimegepant Sulfate [Nurtec Odt] 75 mg PO Q48H PRN 11/22/22 01/21/24 History Aspirin EC [Ecotrin Low Dose] 81 mg PO DAILY 08/08/23 01/21/24 History Melatonin 20 mg PO HS 08/08/23 01/21/24 History hydrOXYzine HCL [Atarax] 50 mg PO HS 08/08/23 01/21/24 History Cholecalciferol (Vitamin D3) 50 mcg PO DAILY 10/22/23 01/21/24 History [Vitamin D3 (50 Mcg = 2000 Iu)] Multivit with Calcium,Iron,Min 1 each PO DAILY 10/22/23 01/21/24 History [Women's Multivitamin] Cholecalciferol [Vitamin D3 (25 50 mcg PO DAILY 01/22/24 01/22/24 History Mcg = 1000 Iu)] Allergies Allergy/AdvReac Type Severity Reaction Status Date / Time codeine Allergy Severe Nausea & Verified 01/21/24 08:23 Vomiting hydrocodone bitartrate Allergy Severe Nausea & Verified 01/21/24 08:23 [From [place]] Vomiting levofloxacin [From Levaquin] Allergy Severe SEVERE Verified 01/21/24 08:23 VOMITING hydromorphone HCl Allergy seizures Verified 01/21/24 08:23 [From Dilaudid] morphine Allergy Rash/Hives Verified 01/21/24 08:23 acetaminophen [From Percocet] AdvReac N/V,Abdominal Verified 01/21/24 08:23 pain alcohol AdvReac MIGRAINES, Verified 01/21/24 08:23 N/V, SOB,abd pain ibuprofen [From Motrin] AdvReac ABD PAIN, Verified 01/21/24 08:23 ELEVATED LIVER ENZYMES, ULCERS Milk Containing Products AdvReac Nausea & Verified 01/21/24 08:23 (Dairy) Vomiting & [Dairy] Diarrhea,migraines,abd pain oxycodone [From Percocet] AdvReac N/V,Abdominal Verified 01/21/24 08:23 pain Physical Examination Osteopathic Statement: *. No significant issues noted on an osteopathic structural exam other than those noted in the History and Physical/Consult.
[~2024-01-24 09:01] MED LIST changes: -ATROPINE SULFATE 0.1 MG/ML 10ML SYRINGE ONE; -DOBUTamine DRIP for NUC MED 500 MG/250 ML BAG IV ONE; +ONDANSETRON 4 MG/2 ML VIAL IVP PRN; +TRANEXAMIC 1,000 MG/100ML-NACL 1,000 MG in SALINE 1 100ML.BAG IVPB PRN
[2024-01-24] MEDS: IV FLUID CONTINUATION 1,000 ML IV ONE (09:35)
[2024-01-24] MEDS ORDERED: LIDOCAINE 1% (10MG/ML) FOR IV START INTRADERMA PRN (09:45)
[2024-01-24] MEDS: GABAPENTIN 300 MG CAP PO PRN (09:54)
[2024-01-24] MEDS: ACETAMINOPHEN TAB 500 MG TAB PO PRN (09:54)
[2024-01-24] MEDS: SCOPOLAMINE 1 MG/72 HR PATCH TRANSDERM STA (10:50)
[2024-01-24] MEDS: MIDAZOLAM 2 MG/2 ML VIAL IV PRN (10:51)
[2024-01-24] MEDS: ONDANSETRON 4 MG/2 ML VIAL IVP ONE (10:53)
[2024-01-24] MEDS: LACTATED RINGERS 1,000 ML IV SCH (10:54)
[2024-01-24] MEDS: DEXAMETHASONE SOD PHOSPHATE 4 MG/ML 1 ML VIAL IV ONE (10:54)
[2024-01-24] MEDS ORDERED: TRANEXAMIC 1,000 MG/100ML-NACL PREMIX BAG ONE (11:23)
[2024-01-24] MEDS ORDERED: ONDANSETRON 4 MG/2 ML VIAL ONE (11:23)
[2024-01-24] MEDS ORDERED: ePHEDrine 50 MG/ML 1 ML VIAL ONE (11:23)
[2024-01-24] MEDS ORDERED: ROCURONIUM 10 MG/ML (5 ML VIAL) IV ONE (11:23)
[2024-01-24] MEDS ORDERED: LIDOCAINE 1% INJ 10MG/ML (20 ML MDV) ONE (11:23)
[2024-01-24] MEDS ORDERED: MIDAZOLAM 2 MG/2 ML VIAL ONE (11:23)
[2024-01-24] MEDS ORDERED: WATER FOR INJECTION, STERILE 10 ML VIAL IV ONE (11:23)
[2024-01-24] MEDS ORDERED: SUCCINYLCHOLINE CHLORIDE 200 MG/10 ML VIAL IV ONE (11:23)
[2024-01-24] MEDS ORDERED: KETAMINE HCL IN 0.9 % NACL 50 MG/5 ML SYRINGE ONE (11:23)
[2024-01-24] MEDS ORDERED: fentaNYL (PF) 50 MCG/ML 2 ML AMP ONE (11:23)
[2024-01-24] MEDS ORDERED: PROPOFOL 10 MG/ML 20 ML VIAL IV ONE (11:23)
[2024-01-24] MEDS ORDERED: PHENYLEPHRINE-0.9% NACL SYG 1,000 MCG/10 ML SYRINGE ONE (11:23)
[2024-01-24] MEDS: THROMBIN (BOVINE) 5,000 UNIT VIAL TOPICAL ONE (12:05)
[2024-01-24] MEDS: LACTATED RINGERS 1,000 ML IV ONE (12:08)
--- NOTE | 2024-01-24 14:18 | P.OP ---
Date of Procedure: 01/24/24 Preoperative Diagnosis: 1. C4-7 SPONDYLOSIS WITH STENOSIS 2. C4-5 GRADE I SPONDYLOLISTHESIS, UNSTABLE 3. CERVICAL STENOSIS C4-7 WITH CERVICAL DISC DISPLACEMENT 4. UE RADICULOPATHY 5. UE WEAKNESS 6. NECK PAIN Postoperative Diagnosis: 1. C4-7 SPONDYLOSIS WITH STENOSIS 2. C4-5 GRADE I SPONDYLOLISTHESIS, UNSTABLE 3. CERVICAL STENOSIS C4-7 WITH CERVICAL DISC DISPLACEMENT 4. UE RADICULOPATHY 5. UE WEAKNESS 6. NECK PAIN Procedure(s) Performed: 1. C4-5 ANTERIOR CERVICAL ARTHRODESIS (51738) 2. C5-6 ANTERIOR CERVICAL ARTHRODESIS (09796) 3. C6-7 ANTERIOR CERVICAL ARTHRODESIS (60365) 4. C4-5, C5-6, C6-7 ANTERIOR CERVICAL INSTRUMENTATION (55379) 5. C4-5, C5-6 AND C6-7 INSERTION OF BIOMECHANICAL DEVICE, CAGES x3 ([id number]) USE OF IONM USE OF IO MICROSCOPE Implants: JANUSZ SECURE C 8MM, 9MM, 10MM 12MM, 10MM SCREW PLATE FIXATION MAGNATOS, AUTOGRAFT Anesthesia: GETA Surgeon: Sidney Snider Ged Instructor #1: Shakira Senior (WAS PRESENT AND ASSISTED WITH ALL ASPECTS OF THE CASE FROM POSITION TO DRESSING PLACEMENT) Estimated Blood Loss (ml): 25 IV fluids (ml): 1,200 Urine output (ml): 200 Pathology: none sent Condition: stable Disposition: PACU Indications for Procedure: Karla Robison is a 58 year old female presenting for evaluation of progressive onset of Neck pain, UE weakness and paresthesias with progressive radiculopathy of the BUE. It was my pleasure to have seen and examined Ms. Robison. In our visit today we have had a chance to go over subjective complaints, physical examination findings and treatments, including the natural course his tory without intervention and various interventional options. The imaging demonstrates C4-7 degenerative changes with disc collapse, degenerative HNP with stenosis central and foraminal that is moderate to severe. Flattened CL due to the collapse along with facet arthrosis, Axial neck pain due to the collapse and degenerative changes as well . On physical exam, Ms. Robison demonstrates Pain with ROM of the neck, limited ROM due to the pain. COntinued progressive neurological deterioration despite conservative measues. UE radiculopathy. UE weakness. I explained to the patient that as her condition progresses it could cause Progressive changes, increased pain, natural course of deterioration . At this time, based on the patients imaging and physical exam, I recommend surgery in the form or a: C5-7 ANTERIOR CERVICAL DISCECOMTY AND FUSION . I discussed the risk and benefits of this procedure at length with Ms. Robison. The patient agreed to consider pursuing the procedure mentioned above. Plan: 1. C4-7 ANTERIOR CERVICAL DISCECOMTY AND FUSION Description of Procedure: C4-7 ACDF The patient was seen and examined in the preoperative area. All preoperative protocols were followed. Informed consent was obtained, risks and benefits of the procedure were discussed at length. Risks including bleeding infection damage to the surrounding tissue and risk of reoperation were discussed with the patient. Risk of anesthesia up to and including was discussed with the patient. These are outlined in the risk review. They were willing to accept these risks and all the risks of surgery. The patient was given a weight-based dose of antibiotics in the form of 2 g Ancef. The patient was seen and evaluated by the anesthesia team who deemed them fit for surgery. The site was marked, the patient was willing to proceed with the procedure. The patient was transferred to the operative suite by the Department of anesthesia. They were then drifted off to sleep by the department anesthesia and GETA was performed. The patient tolerated this well. Ceja catheter was placed by nursing staff, a-traumatically. Once confirmation of lines and ventilation the patient was transferred to a Supine Duy table very carefully. All bony prominences including wrists, elbows, axilla, chest, hips, and thighs, and feet were padded very well. Special attention was paid to the genitalia, and these were padded accordingly. SCDs were placed on bilateral lower extremities and were connected. Arms were well padded and placed at their side thumbs up. Once in position, again we confirmed good ventilation capabilities and that lines were running appropriately. The patients Cervical spine was then exposed. 1010s were placed outlining the incision site. Standard alcohol was used to clean the incision site and allowed to dry. C-arm was used to bio-gallo the patient and confirm level for incision which was marked with a skin marker. Operative briefing was performed with all teams and everyone in agreement to proceed. The patient was then prepped and draped in a normal sterile fashion. Timeout was then performed, and all parties agreed with the procedure to be performed. Transverse skin incision was then made on the right side of the patient's neck 3 cm and dissection taken down to the platysma which was split transversely. Sub platysma flap was made, and interval identified between SCM and medial structures. Omohyoid was visualized and protected. Blunt dissection taken down to the anterior cervical fascia which was identified. Blunt probe was then placed and lateral image taken which confirmed levels for operation. These levels were then marked with a bovi. Subperiosteal dissection of the longissimus muscles were then done over these levels identifying uncovertebral joints bilaterally. Retractor was then placed deep to these muscles and held in place with a bed arm. Microscope was then brought in for visualization. [place] pins were placed into C6 and C7 and gentle distraction taken out over the levels. Juan Carlos rongeur used to remove disc material. Operating microscope brought in for visualization. Complete discectomy performed at this level with curette, rongure and pituitary. High speed john used to remove osteophytes anteriorly and posteriorly until PLL was identified. 6-0 up curette then used to identify the canal and ressect the PLL. 2-0 and 3-0 Kerrison used then to remove PLL and disc herniation and performed b/l foraminotomies. Once good dec ompression was accomplished, meticulous hemostasis was performed. Sizers were then placed under lateral fluoroscopy until the desired height and lordosis. Cage was then selected, packed with autograft and allograft and placed under lateral imaging. Once in good position it was tested and stable. Motors run before and after cage placement were stable. The wound was irrigated, and autograft placed lateral to the cage anteriorly for fusion. [place] pin was then removed from C7 and placed into C5 and bone wax placed in their void. Gentle distraction taken out over C5-6 now. Complete discectomy done at C5-6 as described including decompression, b/l foraminotomies and PLL resection. Burring of endplates was minimal, osteophytes removed as described. Spacers were then sized and placed under lateral imaging. Cage selected, packed with graft and placed under lateral images. Once in position, meticulous hemostasis performed, and motors remained stable before and after cage placement. AP image confirmed good placement of cages. Wound was irrigated. [place] pin was then removed from C6 and placed into C4. At C4-5 now, gentle distraction is taken out over the levels. Juan Carlos rongeur used to remove disc material.. Complete discectomy performed at this level with curette, rongure and pituitary. High speed john used to remove osteophytes anteriorly and posteriorly until PLL was identified. 6-0 up curette then used to identify the canal and ressect the PLL. 2-0 and 3-0 Kerrison used then to remove PLL and disc herniation and performed b/l foraminotomies. Once good dec ompression was accomplished, meticulous hemostasis was performed. Sizers were then placed under lateral fluoroscopy until the desired height and lordosis. Cage was then selected, packed with autograft and allograft and placed under lateral imaging. Once in good position it was tested and stable. Motors run before and after cage placement were stable. The wound was irrigated, and autograft placed lateral to the cage anteriorly for fusion. Anterior fixation devices were then placed. Awl was placed through the guide and measured on lateral imaging. Screws were then placed for anterior fixation and secured. Cage and construct was tested and stable. All locking mechanisms were set, and all screws had good purchase. Final AP and lateral images taken confirmed good placement of hardware and good reduction and protestant of height. The wound was then irrigated copiously with NSS. Surgicel placed deep in the wound. A deep drain placed out a separate incision and sewed into place. Layered closure then performed with 3-0 Vicryl in the platysma and subQ tissue. 4-0 stratafix was then placed in the subcuticular skin. The wound was then cleaned, dried and skin glue placed. Once glue dried telfa, 4x4, and tegaderms were placed for dressing. Wound edges approximated well. The patient was then transferred back to their hospital bed a-traumatically. The drain continued to hold suction. They were placed in a soft collar. They were then awakened by the department of anesthesia having tolerated the procedure well without complications.
[2024-01-24] MEDS ORDERED: ONDANSETRON 4 MG/2 ML VIAL IVP PRN (14:27)
--- NOTE | 2024-01-24 14:28 | FL ---
EXAMINATION TYPE: FL guidance operating room, XR cervical spine limited DATE OF EXAM: 01/24/2024 2:05 PM COMPARISON: Pre Operative Images if available both CT/MRI or plain film CLINICAL INDICATION: Female, 58 years old with history of C4-C7 Fusion; TECHNIQUE: FL guidance operating room, XR cervical spine limited, multiple fluoroscopic images provid ed for procedure. Total fluoroscopy time: 26 seconds Total submitted images to PACS: 3 DAP: 1.0630 mGym2 Gycm2 uGym2 cGycm2 or equivalent. FINDINGS: Fluoroscopic images during internal fixation/arthroplasty demonstrate hardware in appropriate positio n. Hardware appears intact. No immediate complication identified. IMPRESSION: 1. No evidence for intraoperative complication. 2. Please see the operative/procedural note for further details. [facility], Workstation: [facility], 01/24/2024 2:25 PM
[2024-01-24] MEDS: fentaNYL (PF) 50 MCG/ML 2 ML AMP IVP PRN (14:49)
[2024-01-24] MEDS: ACETAMINOPHEN IV (For NPO) 1,000 MG in EMPTY BAG 1 BAG IVPB STA (15:03)
[2024-01-24] MEDS: GABAPENTIN 300 MG CAP PO SCH (16:04)
[2024-01-24] MEDS: KETOROLAC 15 MG/ML 1 ML VIAL IVP SCH (16:04)
[2024-01-24] MEDS: CYCLOBENZAPRINE 5 MG TAB PO PRN (16:17)
[2024-01-24] MEDS: hydrOXYzine pamoate 25 MG CAP PO PRN (16:17)
--- NOTE | 2024-01-24 16:36 | P.CONS ---
History of Present Illness - Reason for Consult Consult date: 01/24/24 Medical Management Requesting physician: Sidney Snider - History of Present Illness History of Presenting Illness: Patient is a pleasant 58-year-old female with a past medical history of hypothyroidism, fibromyalgia, depression, GERD, obstructive sleep apnea does not use CPAP, TIA, migraine headaches, osteoarthritis, and chronic pain. She is currently admitted under orthospine surgery team status post C4-C7 anterior cervical arthrodesis and anterior cervical instrumentation with insertion of biomechanical cage. Surgical procedure was completed secondary to cervical s pine spondylosis with stenosis and upper extremity radiculopathy, weakness, and chronic pain. Surgical procedure was completed by Dr. Snider. We were consulted for medical management throughout hospitalization. Patient was seen and fully evaluated in room 466. Patient currently tearful and crying out reporting uncontrolled postoperative pain. Patient reports she did not expect this amount of pain after surgery and is unable to take most pain medications secondary to intolerance of nausea and vomiting. RN reports she has reached out to orthospine surgeon and awaiting further orders. At this time discussed with RN will provide Dilaudid 1 mg IVP along with Compazine 10 mg IVP secondary to patient's reports of nausea and vomiting in the past after receiving Dilaudid. Patient currently denies having any postoperative nausea or vomiting. She denies any difficulty swallowing and has been tolerating clear liquids. Patient denies having any numbness/tingling/weakness in her upper extremities, chest pain, palpitations, shortness of breath, or any other complaints. She reports only complaint at this time is intractable and uncontrolled neck pain in which she currently rates 20 out of 10. Review of systems: Pertinent positives and negatives as discussed in HPI, a complete review of systems was performed and all other systems are negative. Physical exam: Vital signs reviewed and stable. General: Nontoxic, mild distress noted secondary to reports of uncontrolled pain. Derm: Skin warm and dry, normal coloration for ethnicity. Head: Atraumatic, normocephalic and symmetric. Postoperative dressing in place to anterior neck and hard c-collar in place. Eyes: EOM's intact, no lid lag, and anicteric sclera Mouth: no lip lesions, mucus membranes moist Cardiovascular: regular rate and rhythm with normal S1S2, no murmur, positive posterior tibial pulses bilaterally, and cap refill < 2 seconds. Lungs: Respirations even, regular, and unlabored on room air. Lungs CTA tu aterally, no rhonchi, no rales, no wheezing, and no accessory muscle usage. Abdominal: soft, nontender to palpation, no guarding, no appreciable organomegaly Ext: ROM intact. No gross muscle atrophy, no edema, no contractures Neuro: Speech clear, face symmetrical and CN II-XII grossly intact with no noted focal neuro deficits Psych: Alert and oriented to person, place, time, and situation. Appropriate and pleasant affect. Assessment and Plan of Care: Uncontrolled postoperative pain -Order placed for Dilaudid 1 mg IVP along with Compazine 10 mg IVP as patient reports-previous intolerance resulting in nausea and vomiting. Status post C4-C7 anterior cervical arthrodesis and anterior cervical instrumentation with insertion of biomechanical cage -Management per primary admitting orthospine surgery team including DVT prophylaxis, pain management, and wound/dressing/drain management. -Currently DVT prophylaxis with SCDs and SYBIL hose. Hypothyroidism -Continue levothyroxine 25 mcg daily. Depression -Continue Prozac 80 mg nightly. Chronic conditions: History of obstructive sleep apnea but states does not and will not use CPAP History of TIA History of migraine headaches Fibromyalgia Chronic pain -Continue home medication regimen. Data reviewed: Reviewed preoperative EKG showing normal sinus rhythm at 65 bpm with no noted T wave or ST abnormalities showing no signs of acute ischemia upon personal review and interpretation. Vital signs reviewed. Blood pressure 127/77, heart rate 73, respiratory rate 17, temp 96.8 F axillary, and SpO2 of 97% on room air. Thank you for allowing us to participate in the care of this pleasant patient. Do not hesitate to contact us with questions. Someone can be reached from the [facility] hospitalist group all hours of the day at [phone] or via [employer]. Patient was seen independently by Nurse Practitioner. This document was prepared using [employer] dictation software. Please allow for errors in staffing clerk while rare they do occur. Gilbert Garcia NP rendered care for this patient independently, reviewed the findings and plan as documented in the note above and agree with plan. I did not physically speak with or examine the patient on this date. Past Medical History Past Medical History: CVA/TIA, Eye Disorder, GERD/Reflux, Neurologic Disorder, Osteoarthritis (OA), Sleep Apnea/CPAP/BIPAP, Thyroid Disorder Additional Past Medical History / Comment(s): DOES NOT USE C-PAP,migraines, seasonal allergies, ALLERGY-induced asthma,RT EPI RETINAL MEMBRANE . Peptic ulcer disease with hemorrhage, HX H.Pylori, syringomyelia, chronic back pain, hemorrhoids, ddd, lumbar spondylosis. 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 OSTEOPOROSIS. History of Any Multi-Drug Resistant Organisms: None Reported Past Surgical History: Adenoidectomy, Bladder Surgery, Cholecystectomy, Heart Catheterization, Hernia Repair, Hysterectomy, Orthopedic Surgery, Tonsillectomy, Tubal Ligation Additional Past Surgical History / Comment(s): [place] procedure, Pubovaginal sling, UPPP for sleep apnea , A & P repair, laparoscopic lysis of adhesion 2, left heart catheterization 2006, EGD/colonoscopy last one 02/12/15, ORIF lt foot, lt shoulder sx 02/26/15, pain clinic injections, RFA LT lower back, HEART CATH 03/14/17-CLEAR, RFA RT LOWER BACK 03/22/17, 12/13/17, egd-04/09/17, HIATAL HERNIA REPAIR 07/09/17, pain clinic injections last 01/15/20 Past Anesthesia/Blood Transfusion Reactions: Previous Problems w/ Anesthesia, Family History of Problems w/ Anesthesia, Motion Sickness, Postoperative Nausea & Vomiting (PONV) Additional Past Anesthesia/Blood Transfusion Reaction / Comm: HAD TO HAVE BENADRYL AFTER LAST PAIN PROCEDURE (12/13/17) FOR SEVERE ITCHING. severe N/V with anesthesia-usually even with pre op measures. SISTER, MOTHER AND BROTHER ALL HAVE SEVERE PONV WITH ANESTHESIA Past Psychological History: Depression Additional Psychological History / Comment(s): pt stated she is maintained by medications Smoking Status: Former smoker Past Alcohol Use History: None Reported Additional Past Alcohol Use History / Comment(s): STARTED SMOKING AT AGE 15 SMOKED UP TO 2 PPD THEN QUIT IN 1997. Past Drug Use History: None Reported - Past Family History Father Family Medical History: Cancer, Myocardial Infarction ([place]) Additional Family Medical History / Comment(s): KIDNEY CA Mother Family Medical History: Asthma, COPD, Eye Disorder, Fibromyalgia, GERD/Reflux Additional Family Medical History / Comment(s): AT AGE 75- RESP FAILURE(PAST HEAVY SMOKER) Sister(s) Family Medical History: Hypertension Brother(s) Family Medical History: No Reported History Daughter(s) Family Medical History: Cancer Additional Family Medical History / Comment(s): cervical Son(s) Family Medical History: No Reported History Medications and Allergies Home Medications Medication Instructions Recorded Confirmed Type Levothyroxine Sodium 25 mcg PO QAM 11/14/16 01/24/24 History Zolpidem [Ambien] 10 mg PO HS 01/08/18 01/24/24 History FLUoxetine HCL [PROzac] 80 mg PO HS 11/22/22 01/24/24 History Rimegepant Sulfate [Nurtec Odt] 75 mg PO Q48H PRN 11/22/22 01/24/24 History Aspirin EC [Ecotrin Low Dose] 81 mg PO DAILY 08/08/23 01/24/24 History Melatonin 20 mg PO HS 08/08/23 01/24/24 History hydrOXYzine HCL [Atarax] 50 mg PO HS 08/08/23 01/24/24 History Cholecalciferol (Vitamin D3) 50 mcg PO DAILY 10/22/23 01/24/24 History [Vitamin D3 (50 Mcg = 2000 Iu)] Multivit with Calcium,Iron,Min 1 each PO DAILY 10/22/23 01/21/24 History [Women's Multivitamin] Cholecalciferol [Vitamin D3 (25 50 mcg PO DAILY 01/22/24 01/24/24 History Mcg = 1000 Iu)] Allergies Allergy/AdvReac Type Severity Reaction Status Date / Time codeine Allergy Severe Nausea & Verified 01/24/24 09:22 Vomiting hydrocodone bitartrate Allergy Severe Nausea & Verified 01/24/24 09:22 [From [place]] Vomiting levofloxacin [From Levaquin] Allergy Severe SEVERE Verified 01/24/24 09:22 VOMITING hydromorphone HCl Allergy seizures Verified 01/24/24 09:22 [From Dilaudid] morphine Allergy Rash/Hives Verified 01/24/24 09:22 acetaminophen [From Percocet] AdvReac N/V,Abdominal Verified 01/24/24 09:22 pain alcohol AdvReac MIGRAINES, Verified 01/24/24 09:22 N/V, SOB,abd pain ibuprofen [From Motrin] AdvReac ABD PAIN, Verified 01/24/24 09:22 ELEVATED LIVER ENZYMES, ULCERS Milk Containing Products AdvReac Nausea & Verified 01/24/24 09:22 (Dairy) Vomiting & [Dairy] Diarrhea,migraines,abd pain oxycodone [From Percocet] AdvReac N/V,Abdominal Verified 01/24/24 09:22 pain Physical Exam Vitals: Vital Signs Temp Pulse Resp BP Pulse Ox 01/24/24 15:51 97.8 F 80 18 147/88 97 01/24/24 15:30 87 16 137/77 99 01/24/24 15:15 90 16 133/68 100 01/24/24 15:00 74 16 139/73 100 01/24/24 14:45 90 16 143/78 100 01/24/24 14:30 76 16 120/73 97 01/24/24 11:02 63 17 118/60 100 01/24/24 09:16 97.9 F 69 18 130/65 99 Intake and Output 01/24/24 01/24/24 01/24/24 06:59 14:59 22:59 Intake Total 950 Output Total 275 Balance 675 Intake: IV 950 Output: Urine 250 Estimated Blood Loss 25 Other: Weight 91.6 kg 91.6 kg
[2024-01-24] MEDS: ACETAMINOPHEN TAB 500 MG TAB PO SCH (17:32)
[2024-01-24] MEDS: PROCHLORPERAZINE INJ 10 MG/2 ML VIAL IVP STA (18:04)
[2024-01-24] MEDS: HYDROmorphone 1 MG/ML 1 ML SYRINGE IVP STA (18:04)
[2024-01-24] MEDS ORDERED: NALOXONE 0.4 MG/ML 1 ML VIAL IV PRN (18:13)
[2024-01-24] MEDS: SODIUM CHLORIDE 0.9% 1,000 ML IV SCH (19:11)
[2024-01-24] MEDS: fentaNYL PCA 500 MCG/50 ML BAG IV PRN (19:14)
[2024-01-24] MEDS: FLUoxetine HCL 20 MG CAP PO SCH (22:04)
[2024-01-24] MEDS: MELATONIN 5 MG TABLET PO SCH (22:04)
[2024-01-25] MEDS: CALCIUM CARBONATE 500 MG CHEWABLE PO PRN (00:06)
--- NOTE | 2024-01-25 02:56 | CT ---
EXAM: CT Cervical Spine Without Intravenous Contrast CLINICAL HISTORY: ITS.REASON CT Reason: s/p C4-C7 ACDF TECHNIQUE: Axial computed tomography images of the cervical spine without intravenous contrast. CTDI is 14.2 mGy and DLP is 461.9 mGy-cm. This CT exam was performed using one or more of the following dose reduction techniques: automated exposure control, adjustment of the mA and/or kV according to patient size, and/or use of iterative reconstruction technique. COMPARISON: No relevant prior studies available. FINDINGS: Postop changes C4-C7 ACDF. Vertebrae: No acute fracture. Discs/spinal canal/neural foramina: degenerative changes. Soft tissues: Postop changes with air-fluid collection in the prevertebral space throughout. Soft tissue swelling and emphysema along the right anterior neck IMPRESSION: Postop changes with air-fluid collection in the prevertebral space throughout. Not causing significant airway narrowing.
[2024-01-25 04:43] LABS: Basophils % (A) 0 %; Eosinophils % (A) 0 %; HCT 40.9 % (34.0-46.0); HGB 13.1 gm/dL (11.4-16.0); Lymphocytes # (A) 1.4 k/uL (1.0-4.8); Lymphocytes % (A) 9 %; MCH 26.3 pg (25.0-35.0); MCHC 32.1 g/dL (31.0-37.0); MCV 81.9 fL (80.0-100.0); Mean Platelet Volume 6.3; Monocytes # (A) 0.8 k/uL (0-1.0); Monocytes % (A) 5 %; Neutrophils # (A) 13.2 k/uL (1.3-7.7); Neutrophils % (A) 85 %; Platelet Count 288 k/uL (150-450); WBC 15.5 k/uL (3.8-10.6)
[2024-01-25 05:11] LABS: African American GFR (CKD) 89 (>60 ml/min/1.73 sqM); Anion Gap 5 mmol/L; Blood Urea Nitrogen 13 mg/dL (7-17); Calcium 8.7 mg/dL (8.4-10.2); Carbon Dioxide 21 mmol/L (22-30); Chloride 107 mmol/L (98-107); Glucose 99 mg/dL (74-99); Non-African American GFR(CKD) 77 (>60 ml/min/1.73 sqM); Potassium 4.5 mmol/L (3.5-5.1); Sodium 133 mmol/L (137-145)
[2024-01-25] MEDS: LEVOTHYROXINE 25 MCG TAB PO SCH (05:40)
--- NOTE | 2024-01-25 08:53 | P.PN ---
Subjective Progress Note Date: 01/25/24 Principal diagnosis: 1.C4-C7 spondylolistheis 2.C4-C7 spondylosis and stenosis 3.Upper extremity radiulopathy Patient seen and examined this morning. Patient is resting comfortably in bed. Patient does report that her pain is managed on current regimen. She does admit to some difficulty with swallowing. Informed patient that the fentanyl VENEER DRIER FEEDER will be discontinued at 10 AM this morning and scheduled tramadol will begin. Encourage patient to use muscle relaxer and ice packs around the shoulders to assist with pain management. Continue to encourage patient to be up in chair for all meals and to increase her activity as tolerated. Discussed the possibility of patient being discharged later this afternoon. Since the procedure patient has stated that she has noticed decreased pain in her cervical spine and improvement of the radiculopathy into the upper extremities. No acute concerns at this time. Objective - Vital Signs Vital signs: Vital Signs Temp 97.7 F 01/25/24 02:47 Pulse 73 01/25/24 02:47 Resp 15 01/25/24 02:47 BP 124/79 01/25/24 02:47 Pulse Ox 93 L 01/25/24 02:47 FiO2 Intake & Output 01/24/24 01/24/24 01/25/24 06:59 18:59 06:59 Intake Total 950 Output Total 275 Balance 675 Weight 91.6 kg Intake: IV 950 Output: Urine 250 Estimated Blood Loss 25 Other: Voiding Method Toilet # Voids 0 1 - Exam Physical Examination General: The patient is awake and alert, in no acute distress Skin: Skin is warm and dry with no obvious rashes or lesions. Surgical incision to the anterior cervical spine, dressing is clean dry and intact. Eye: Pupils are equal, round and reactive to light, extra-ocular movements are intact; there is normal conjunctiva bilaterally. Neck: The neck is supple, There is mild tenderness around the incision site and limited range of motion due to recent surgery and hard cervical collar in tact. Cardiovascular: There is a regular rate and rhythm. No murmur, rub or gallop is appreciated. Respiratory: Respirations are non-labored, breath sounds are equal. Gastrointestinal: Soft, non-distended, non-tender abdomen. Back: There is no tenderness to palpation in the midline, paralumbar, parathoracic or buttocks region. There is no obvious deformity . Musculoskeletal: ROM limited secondary to pain and stiffness from surgical procedure. Right: Shoulder abduction 4/5, elbow flexors 5/5, wrist dorsiflexors 5/5. finger abductor 5/5, director of emergency nursing 5/5, hip flexor 5/5, knee flexor 5/5, ankle dorsiflexor 5/5, ankle plantarflexion 5/5 and extensor halluci s 5/5. Left: Shoulder abduction 4/5, elbow flexors 5/5, wrist dorsiflexors 5/5. finger abductor 5/5, director of emergency nursing 5/5, hip flexor 5/5, knee flexor 5/5, ankle dorsiflexor 5/5, ankle plantarflexion 5/5 and extensor hallucis 5/5. Neurological: CN 2-12 intact. There are no obvious motor or sensory deficits. Movement and coordination equal and intact. Sensory exam to light touch intact C5-T1 and intact from L2-S1. Reflexes 2/4 in bilateral upper and lower extremities. Negative Hoffmans, babinski, and clonus signs. Psychiatric: Cooperative, appropriate mood & affect, normal judgment. - Labs CBC & Chem 7: 01/25/24 03:52 01/25/24 03:52 Labs: Abnormal Lab Results - Last 24 Hours (Table) 01/25/24 01/25/24 Range/Units 03:52 03:52 WBC 15.5 H (3.8-10.6) k/uL Neutrophils # 13.2 H (1.3-7.7) k/uL Sodium 133 L (137-145) mmol/L Carbon Dioxide 21 L (22-30) mmol/L Assessment and Plan Assessment: Postop day 1: C4-C7 ACDF Plan: -Appreciate obiee consultant and team management. -Activity: Ambulate QID, OOB all meals, up and about, limit lifting bending twisting to less than 5 lbs. Use walker or cane if needed for stability. -Daily PT/OT, increase ambulation strength and balance. -Utilize hard cervical collar at all times, may remove for showers. -Pain control: Adequate at this time -Meds: reviewed -GI ppx: senna, Miralax -DVT PPX: TEDS, SCDs -Hygiene: Maintain incision clean and dry. May change dressing as needed, please document in notes if performed. -Encourage IS 10x/hr -Dispo: Anticipate discharge home with homecare this afternoon. *I reviewed and discussed this case with my attending Dr. Snider, whom has reviewed this chart and films and is in agreement with assessment and plan of care as outlined above. I have personally seen and examined the patient, performed the documentation and the assessment and plan as written. Number of minutes spent on the visit: 20m.
[2024-01-25] MEDS: CHOLECALCIFEROL 25 MCG (1000 IU) TABLET PO SCH (10:12)
[2024-01-25] MEDS: traMADol 50 MG TAB PO SCH (10:13)
[2024-01-25] MEDS: SENNOSIDES-DOCUSATE SODIUM 1 EACH TAB PO SCH (10:13)
[2024-01-25] MEDS: MULTIVITAMINS, THERA 1 EACH TAB PO SCH (10:13)
[2024-01-25] MEDS: BENZOCAINE/MENTHOL LOZENG 1 EACH LOZENGE MUCOUS MEM PRN (10:30)
--- NOTE | 2024-01-25 15:36 | P.PN ---
Subjective Progress Note Date: 01/25/24 Hospital course:: Patient is a pleasant 58-year-old female with a past medical history of hypothyroidism, fibromyalgia, depression, GERD, obstructive sleep apnea does not use CPAP, TIA, migraine headaches, osteoarthritis, and chronic pain. She is currently admitted under orthospine surgery team status post C4-C7 anterior cervical arthrodesis and anterior cervical instrumentation with insertion of biomechanical cage. Surgical procedure was completed secondary to cervical spine spondylosis with stenosis and upper extremity radiculopathy, weakness, and chronic pain. Surgical procedure was completed by Dr. Snider. We were consulted for medical management throughout hospitalization. Physical exam: Patient was seen and fully evaluated at bedside this morning. She reports slightly improved postoperative pain but reports having a sore throat and dizziness this morning. She continues to deny having any nu mbness/tingling/weakness in her extremities. Denies having any nausea or vomiting. Vital signs reviewed and stable. General: Nontoxic, mild distress noted secondary to reports of uncontrolled pain. Derm: Skin warm and dry, normal coloration for ethnicity. Head: Atraumatic, normocephalic and symmetric. Postoperative dressing in place to anterior neck and hard c-collar in place. Eyes: EOM's intact, no lid lag, and anicteric sclera Mouth: no lip lesions, mucus membranes moist Cardiovascular: regular rate and rhythm with normal S1S2, no murmur, positive posterior tibial pulses bilaterally, and cap refill < 2 seconds. Lungs: Respirations even, regular, and unlabored on room air. Lungs CTA b ilaterally, no rhonchi, no rales, no wheezing, and no accessory muscle usage. Abdominal: soft, nontender to palpation, no guarding, no appreciable organomegaly Ext: ROM intact. No gross muscle atrophy, no edema, no contractures Neuro: Speech clear, face symmetrical and CN II-XII grossly intact with no noted focal neuro deficits Psych: Alert and oriented to person, place, time, and situation. Appropriate and pleasant affect. Assessment and Plan of Care: Uncontrolled postoperative pain -Patient was started on fentanyl R D MANAGER overnight and this morning is being transition to oral tramadol. -Order placed for Cepacol lozenges for reports of sore throat. Status post C4-C7 anterior cervical arthrodesis and anterior cervical instrumentation with insertion of biomechanical cage -Management per primary admitting orthospine surgery team including DVT prophylaxis, pain management, and wound/dressing/drain management. -Currently DVT prophylaxis with SCDs and SYBIL castrejon. Leukocytosis -WBC count 15.5. No signs of infection. Leukocytosis believed to be reactive secondary to recent surgical procedure. No need for further intervention at this time. Hypothyroidism -Continue levothyroxine 25 mcg daily. Depression -Continue Prozac 80 mg nightly. Chronic conditions: History of obstructive sleep apnea but states does not and will not use CPAP History of TIA History of migraine headaches Fibromyalgia Chronic pain -Continue home medication regimen. Data reviewed: Morning labs reviewed. CBC showing leukocytosis with WBC count of 15.5 otherwise normal findings. BMP revealing mild hyponatremia with sodium of 133 and hypocarbia with bicarb of 21 otherwise normal findings. Vital signs reviewed. Blood pressure 115/70, heart rate 68, respiratory rate 17, temp 97.9 F, and SpO2 of 92% on room air. Thank you for allowing us to participate in the care of this pleasant patient. Do not hesitate to contact us with questions. Someone can be reached from the [facility] hospitalist group all hours of the day at [phone] or via [place]. Patient was seen independently by Nurse Practitioner. This document was prepared using [employer] dictation software. Please allow for e rrors in awning frame maker while rare they do occur. Gilbert Garcia NP rendered care for this patient independently, reviewed the findings and plan as documented in the note above and agree with plan. I did not physically speak with or examine the patient on this date. Objective - Vital Signs Vital signs: Vital Signs Temp 97.7 F 01/25/24 02:47 Pulse 73 01/25/24 02:47 Resp 15 01/25/24 02:47 BP 124/79 01/25/24 02:47 Pulse Ox 93 L 01/25/24 02:47 FiO2 Intake & Output 01/24/24 01/25/24 01/25/24 18:59 06:59 18:59 Intake Total 950 Output Total 275 Balance 675 Weight 91.6 kg Intake: IV 950 Output: Urine 250 Estimated Blood Loss 25 Other: Voiding Method Toilet Toilet # Voids 0 1 - Labs CBC & Chem 7: 01/25/24 03:52 01/25/24 03:52 Labs: Abnormal Lab Results - Last 24 Hours (Table) 01/25/24 01/25/24 Range/Units 03:52 03:52 WBC 15.5 H (3.8-10.6) k/uL Neutrophils # 13.2 H (1.3-7.7) k/uL Sodium 133 L (137-145) mmol/L Carbon Dioxide 21 L (22-30) mmol/L
[2024-01-26 07:43] VITALS: BP 118/79; PULSE 58; RESP 17; TEMP 97.5
--- NOTE | 2024-01-26 09:22 | P.DS ---
Providers Date of admission: 01/24/24 Expected date of discharge: 01/26/24 Attending physician: Sidney Snider DO Consults: 01/24/24 14:35 Consult Physician Routine Consulting Provider: Lulu Kilgore Reason/Comments: Medical Management Do you want consulting provider notified?: Yes Primary care physician: Bea Henley MD Hospital Course: Hospital Course: The patient was evaluated preoperatively and found to have the diagnosis of cervical spondylosis with stenosis. They underwent appropriate preoperative care and were willing to undergo the intended procedure. They underwent a successful C4-C7 ACDF, were recovered appropriately and sent to the floor. While on the floor they worked with physical therapy, occupational therapy and nursing to enhance their recovery experience. Their pain was well controlled through their stay and they were started on appropriate medications, DVT ppx modalities, activity and dietary needs. Daily labs were monitored closely, and transfusions were only used when necessary. Medicine as well as other consulting services have made their input and have helped with our team approach and multidisciplinary care. PT milestones have been met and passed and they have made the recommendation of home for this patient and treating providers agree with this care path. The patient will be discharged home with appropriate medications, instructions and follow-up information and in stable condition. Patient Condition at Discharge: Good Plan - Discharge Summary Discharge Rx Participant: Yes New Discharge Prescriptions: New cefaDROXiL [Duricef] 500 mg PO Q12HR #10 cap Gabapentin [Neurontin] 300 mg PO TID #90 cap traMADol HCL 100 mg PO Q6H PRN #56 tab PRN Reason: Pain Cyclobenzaprine [Flexeril] 5 mg PO TID PRN #40 tablet PRN Reason: Muscle Spasm Sennosides/Docusate Sodium [Senna Plus 8.6-50 mg Tablet] 2 each PO DAILY PRN #20 tab PRN Reason: Constipation Continue Levothyroxine Sodium 25 mcg PO QAM Zolpidem [Ambien] 10 mg PO HS Rimegepant Sulfate [Nurtec Odt] 75 mg PO Q48H PRN PRN Reason: Migraine Headache FLUoxetine HCL [PROzac] 80 mg PO HS hydrOXYzine HCL [Atarax] 50 mg PO HS Aspirin EC [Ecotrin Low Dose] 81 mg PO DAILY Melatonin 20 mg PO HS Cholecalciferol (Vitamin D3) [Vitamin D3 (50 Mcg = 2000 Iu)] 50 mcg PO DAILY Multivit with Calcium,Iron,Min [Women's Multivitamin] 1 each PO DAILY Cholecalciferol [Vitamin D3 (25 Mcg = 1000 Iu)] 50 mcg PO DAILY Discharge Medication List Levothyroxine Sodium 25 mcg PO QAM 11/14/16 [History] Zolpidem [Ambien] 10 mg PO HS 01/08/18 [History] FLUoxetine HCL [PROzac] 80 mg PO HS 11/22/22 [History] Rimegepant Sulfate [Nurtec Odt] 75 mg PO Q48H PRN 11/22/22 [History] Aspirin EC [Ecotrin Low Dose] 81 mg PO DAILY 08/08/23 [History] Melatonin 20 mg PO HS 08/08/23 [History] hydrOXYzine HCL [Atarax] 50 mg PO HS 08/08/23 [History] Cholecalciferol (Vitamin D3) [Vitamin D3 (50 Mcg = 2000 Iu)] 50 mcg PO DAILY 10/22/23 [History] Multivit with Calcium,Iron,Min [Women's Multivitamin] 1 each PO DAILY 10/22/23 [History] Cholecalciferol [Vitamin D3 (25 Mcg = 1000 Iu)] 50 mcg PO DAILY 01/22/24 [History] Cyclobenzaprine [Flexeril] 5 mg PO TID PRN #40 tablet 01/25/24 [Rx] Gabapentin [Neurontin] 300 mg PO TID #90 cap 01/25/24 [Rx] Sennosides/Docusate Sodium [Senna Plus 8.6-50 mg Tablet] 2 each PO DAILY PRN #20 tab 01/25/24 [Rx] cefaDROXiL [Duricef] 500 mg PO Q12HR #10 cap 01/25/24 [Rx] traMADol HCL 100 mg PO Q6H PRN #56 tab 01/25/24 [Rx] Follow up Appointment(s)/Referral(s): Sidney Snider DO [Doctor of Osteopathic Medicine] - 2 Weeks Activity/Diet/Wound Care/Special Instructions: spine Discharge and Recovery Instructions Date of Surgery: 01/24/2024 Diagnosis: cervical spondylosis with stenosis Procedure: C4-C7 Medications: See medication list All medication refills should be obtained through your primary care doctor or your clinic spine surgeon. Please discuss prescription refills at your follow up appointment. Do not call the hospital for medication refills. Activity: Encourage ambulation with assist of walker, Up and about 6-8x daily PT/OT daily work on balance, strength and mobility Up in chair with all meals Shower daily Brace: Use brace when up and about, do not wear in bed or shower Dressing: Leave your dressing in place for a total of 3 days post operatively. Then you m ay remove your dressing and leave open to air. Keep the area clean and if not able to keep area clean, then cover with sterile gauze and tape. Showering: You may shower 3 days after your procedure allowing soap and water to run over incision. Do not scrub. Do not soak. Blot dry. Follow up: Please confirm a follow up appointment with your surgeon 2 weeks post operatively. Please make an appointment to follow up with your PCP in 1-2 weeks after surgery for evaluation '3 phase, 3-week plan' POST OP WEEKS 1-3 1. Lifting/carrying/pushing/pulling limited to less than 5 pounds. 2. Do not sit for longer than 15 minutes at one time. Get up and walk around. Prolonged sitting is NOT advised. If you lay down, see if you can tolerate laying down on you front (belly side) 3. Walk for periods of 15 minutes = 1 mile but no longer; do it multiple times times each day. 4. Ice your low back after activity. POST OP WEEKS 3-6 1. Lifting limited to less than 20 pounds. 2. Do not sit for longer than 30 minutes at a time. Frequently change positions. Use a sit-to stand workstation or take frequent breaks from sitting if you have returned to work. 3. Walk for 30 minutes each day. If possible, do these three or more times a day POST OP WEEKS 6+ At your 6-week appointment we will give you a physical therapy referral to focus on a core stabilization and strengthening program. You should also work on leg & buttock strengthening, hamstring & quadriceps stretching, and continue a low impact aerobic activity program such as swimming, walking, or riding a stationary bicycle. During the initial 6 weeks after your surgery, you are at the highest risk of re-injuring your spine. You should generally avoid BLT's (bending, lifting and twisting combination motions) and follow the above guidelines to reduce the chance of reinjury. You can anticipate post op appointments in our office at approximately 3 weeks and 6 weeks after your surgery. INCISION CARE: If your incision is not draining you do NOT need to cover it with a dressing. Keep your incision clean, dry and intact. In most cases, we apply skin glue, shira or sutures to the incision at the time of surgery. This will be like a crust or have the appearance of a scab and will fall off in time on its own. The stitches or shira need to be removed at 3 weeks post op appointment. You may begin to shower 3 days after surgery (this allows the glue to rivera well). However, please avoid scrubbing the incision site or peeling off any of the skin glue. This will ensure optimal healing of your incision. Also, during this time avoid soaking the incision area in water - this includes swimming pools, hot tubs or baths. No ointments, lotions or oils on the incision until your surgeon allows. Leave shira, sutures or glue in place. Neurological dysfunction that comes on suddenly can also be a sign of a stroke. Below some common symptoms of a stroke are listed: B - balance difficulty such as sudden onset walking or leaning to one side - NEW E - eye problem such as sudden double vision or trouble seeing on one side - NEW F - Facial weakness or numbness on one side - NEW A - Arm or leg weakness or numbness on one side - NEW S - Slurred speech or difficulty with word finding - NEW T - Time is BRAIN! Call 911 as soon as you recognize these symptoms Diet: Consume a regular diet rich in vegetables and lean protein such as chicken or fish. You should consume in a ratio of approximately 20% fats|40% carbohydrates|40%protein. Vegetables, sweet potatoes, brown rice or quinoa are examples of good carbohydrates. Chips, white bread, cookies and sweets/sugar are examples of bad carbohydrates. Limit your bad carbs, go wild with good carbs. "Life's Simple 7" Guidelines as per [place] [employer] These will help you reclaim your life after surgery and flotation tender helper in your recovery, keeping in mind your restrictions. (1) Get Active. Physical activity can help people lose weight, control high blood pressure and cholesterol, feel emotionally better, and sleep better. (2) Control Cholesterol. Avoid a diet high in saturated fat, trans fat, & cholesterol. Limit whole milk & cream, ice cream, butter, egg yolks, processed meats (like sausage and hot dogs), and fatty meats. Choose healthy foods that are low in saturated fat, trans fat and cholesterol which include: Fruits and vegetables, fiber rich grain products (like whole grain pasta and brown rice), lean meat such as chicken, fish, nuts, seeds, and legumes. (3) Eat Better. Eat small portions. Shop at the grocery with a list and do not stray from it. Tips for a healthy diet include: Limit sodium intake to less than 1500mg daily, avoid prepackaged, processed, and fast foods, choose a diet rich in fruits, vegetables, and whole grain, high fiber foods, and limit saturated & cholesterol in your diet. (4) Manage Blood Pressure. If you have high blood pressure, you should have a cuff at home so that you can check your blood pressure regularly. Be sure you have a good cuff. An arm one is generally better than a wrist one. Bring the cuff to a doctor's appointment to validate that the measurements that your cuff are taking are accurate. Take your blood pressure twice daily when you are sitting down and relaxing. Record the numbers in a log and bring this log with you to your doctors' appointments. (5) Lose Weight if your BMI is above 25. A healthy BMI is between 19-25. To calculate Your BMI, you may use a Standard BMI Calculator on the NIH BMI website: <www.nhlbi.nih.gov/guidelines/obesity/BMI/bmicalc.htm>. Weigh oneself daily. If you are overweight, set a goal to lose weight. A pound a week loss if needed is a good target. (6) Reduce Blood Sugar. Limit foods and liquids with "added sugars." (Added sugars include sucrose, fructose, glucose, maltose, dextrose, high fructose corn syrup, corn syrup, concentrated fruit juice and honey). (7) Stop Smoking. If you smoke, quitting smoking is one of the best things that you can do for your health. Smoking increases your risk of heart attack, stroke, and peripheral vascular disease, which is a build-up of plaque in your arteries. Please discard all the cigarettes and lighters in your house. Have a plan for what you will do when you have the urge to smoke. Direct and second- hand smoke shortens your life as well as the lives of your family, friends and others around you. For your health and the health of those around you, please consider quitting! Proper Bending Body Mechanics: Maintain a wide stance with one foot slightly in front of the other. Keep your back straight. Bend utilizing the strength in your hips and knees. Do not bend at the waist. Maintain the lifted object at your waist-level close to your body. Avoid lifting weight that causes immediately pain or pain anywhere in the body afterwards. Smoking/Nicotine If there was ever one thing that you could do to increase your overall health, decrease your risk of cardiovascular problems by about 39% the second you make the choice, it is to STOP SMOKING. Your body's most instant gratification is the second you stop smoking. We have all heard the studies, read the articles but it is true, smoking is extremely bad for your overall health, and moreover it is detrimental to your bone health. Nicotine, IN ANY FORM, kills bone cells, prevents your body from healing fractures, and significantly prolongs healing after surgery. In spine surgery specifically, it increases your risk of not healing your bones to create a fusion and increases your risk of having a revision surgery due to this up to 60%. I know it is hard. I know it feels impossible. But there are ways. Take control of your life. We are here to help you through it. And when you are ready, ask us and we can direct you to help if you desire. Use the START Plan to Quit Smoking (please visit the HelpguComsenz.org website listed below for more information): S = Set a quit date. Choose a date within the next 2 weeks, so you have enough time to prepare without losing your motivation to quit. If you mainly smoke at work, quit on the weekend, so you have a few days to adjust to the change. T = Tell family, friends, and co-workers that you plan to quit. Let your friends and family in on your plan to quit smoking and tell them you need their support and encouragement to stop. Look for a quit rupinder who wants to stop smoking as well. You can help each other get through the rough times. A = Anticipate and plan for the challenges you'll face while quitting. Most people who begin smoking again do so within the first 3 months. You can help yourself make it through by preparing ahead for common challenges, such as nicotine withdrawal and cigarette cravings. R = Remove cigarettes and other tobacco products from your home, car, and work. Throw away all your cigarettes (no emergency pack!), lighters, ashtrays, and matches. Wash your clothes and freshen up anything that smells like smoke. Shampoo your car, clean your drapes and carpet, and steam your furniture. T = Talk to your doctor about getting help to quit. Your doctor can prescribe medication to help with withdrawal and suggest other alternatives. If you can't see a doctor, you can get many products over the counter at your local pharmacy or grocery store, including the nicotine patch, nicotine lozenges, and nicotine gum. Resources for Quitting Smoking: <https://www.[place].gov/documents/[facility]/Quit_Tobacco_Reso urces_for_patients_313480_7.pdf> Supplementation: Take recommended dosages of Vitamin D and Calcium to help fortify your bones and help them to heal. See your health maintenance packet for dosages and recommended levels. DVT/VTE prophylaxis: You will be given compression stockings from the hospital. Wear these daily for the first two weeks after surgery. You may take them off at night. You may be prescribed a medication to help thin your blood. Take this as directed. If you are not prescribed this medication, early and frequent ambulation has been shown to be the best prophylaxis to deep vein thrombosis and sequelae related to this event. Discharge Disposition: HOME WITH HOME HEALTH SERVICES
--- NOTE | 2024-01-26 09:24 | P.PN ---
Subjective Progress Note Date: 01/26/24 Principal diagnosis: 1.C4-C7 spondylolistheis 2.C4-C7 spondylosis and stenosis 3.Upper extremity radiulopathy Patient seen and examined this morning. Patient is sitting up in chair at bedside. She reports her pain is managed on current regimen. Patient states she feels comfortable with discharge home today. Discharge instructions have been discussed. Objective - Vital Signs Vital signs: Vital Signs Temp 97.5 F L 01/26/24 06:55 Pulse 58 L 01/26/24 06:55 Resp 17 01/26/24 06:55 BP 118/79 01/26/24 06:55 Pulse Ox 95 01/26/24 06:55 FiO2 Intake & Output 01/25/24 01/26/24 01/26/24 18:59 06:59 18:59 Intake Total 540 Balance 540 Intake: Oral 540 Other: Voiding Method Toilet Toilet # Voids 2 3 - Exam Physical Examination General: The patient is awake and alert, in no acute distress Skin: Skin is warm and dry with no obvious rashes or lesions. Surgical incision to the anterior cervical spine, dressing is clean dry and intact. Eye: Pupils are equal, round and reactive to light, extra-ocular movements are intact; there is normal conjunctiva bilaterally. Neck: The neck is supple, There is mild tenderness around the incision site and limited range of motion due to recent surgery and hard cervical collar intact. Cardiovascular: There is a regular rate and rhythm. No murmur, rub or gallop is appreciated. Respiratory: Respirations are non-labored, breath sounds are equal. Gastrointestinal: Soft, non-distended, non-tender abdomen. Back: There is no tenderness to palpation in the midline, paralumbar, parathoracic or buttocks region. There is no obvious deformity . Musculoskeletal: ROM limited secondary to pain and stiffness from surgical proc edure. Right: Shoulder abduction 4/5, elbow flexors 5/5, wrist dorsiflexors 5/5. finger abductor 5/5, naval surface fire support planner 5/5, hip flexor 5/5, knee flexor 5/5, ankle dorsiflexor 5/5, ankle plantarflexion 5/5 and extensor hallucis 5/5. Left: Shoulder abduction 4/5, elbow flexors 5/5, wrist dorsiflexors 5/5. finger abductor 5/5, naval surface fire support planner 5/5, hip flexor 5/5, knee flexor 5/5, ankle dorsiflexor 5/5, ankle plantarflexion 5/5 and extensor hallucis 5/5. Neurological: CN 2-12 intact. There are no obvious motor or sensory deficits. Movement and coordination equal and intact. Sensory exam to light touch intact C5-T1 and intact from L2-S1. Reflexes 2/4 in bilateral upper and lower extremities. Negative Hoffmans, babinski, and clonus signs. Psychiatric: Cooperative, appropriate mood & affect, normal judgment. - Labs CBC & Chem 7: 01/25/24 03:52 01/25/24 03:52 Assessment and Plan Assessment: Postop day 2: C4-C7 ACDF Plan: -Appreciate senior internet sales consultant and team management. -Activity: Ambulate QID, OOB all meals, up and about, limit lifting bending twisting to less than 5 lbs. Use walker or cane if needed for stability. -Daily PT/OT, increase ambulation strength and balance. -Utilize hard cervical collar at all times, may remove for showers. -Pain control: Adequate at this time -Meds: reviewed -GI ppx: senna, Miralax -DVT PPX: TEDS, SCDs -Hygiene: Maintain incision clean and dry. May change dressing as needed, please document in notes if performed. -Encourage IS 10x/hr -Dispo: Anticipate discharge home with homecare today. *I reviewed and discussed this case with my attending Dr. Snider, whom has reviewed this chart and films and is in agreement with assessment and plan of care as outlined above. I have personally seen and examined the patient, performed the documentation and the assessment and plan as written. Number of minutes spent on the visit: 20m.
--- NOTE | 2024-01-26 11:03 | P.PN ---
Subjective Progress Note Date: 01/26/24 Hospital course:: Patient is a pleasant 58-year-old female with a past medical history of hypothyroidism, fibromyalgia, depression, GERD, obstructive sleep apnea does not use CPAP, TIA, migraine headaches, osteoarthritis, and chronic pain. She is currently admitted under orthospine surgery team status post C4-C7 anterior cervical arthrodesis and anterior cervical instrumentation with insertion of biomechanical cage. Surgical procedure was completed secondary to cervical spine spondylosis with stenosis and upper extremity radiculopathy, weakness, and chronic pain. Surgical procedure was completed by Dr. Snider. We were consulted for medical management throughout hospitalization. Physical exam: Patient was seen and fully evaluated at bedside this morning. She sitting up in chair at bedside and appears to be doing much better this morning. She is postoperative day 2. Patient has been ambulating without difficulties and denies any postoperative nausea and vomiting. Patient reports continued sore throat and neck pain but states it is improved when compared to yesterday. She continues to deny having any numbness/tingling/weakness in her extremities. Vital signs reviewed and stable. General: Nontoxic, mild distress noted secondary to reports of uncontrolled pain. Derm: Skin warm and dry, normal coloration for ethnicity. Head: Atraumatic, normocephalic and symmetric. Postoperative dressing in place to anterior neck and hard c-collar in place. Eyes: EOM's intact, no lid lag, and anicteric sclera Mouth: no lip lesions, mucus membranes moist Cardiovascular: regular rate and rhythm with normal S1S2, no murmur, positive posterior tibial pulses bilaterally, and cap refill < 2 seconds. Lungs: Respirations even, regular, and unlabored on room air. Lungs CTA bilaterally, no rhonchi, no rales, no wheezing, and no accessory muscle usage. Abdominal: soft, nontender to palpation, no guarding, no appreciable organomegaly Ext: ROM intact. No gross muscle atrophy, no edema, no contractures Neuro: Speech clear, face symmetrical and CN II-XII grossly intact with no noted focal neuro deficits Psych: Alert and oriented to person, place, time, and situation. Appropriate and pleasant affect. Assessment and Plan of Care: Status post C4-C7 anterior cervical arthrodesis and anterior cervical instrumentation with insertion of biomechanical cage -Management per primary admitting orthospine surgery team including DVT prophylaxis, pain management, and wound/dressing/drain management. -Currently DVT prophylaxis with SCDs and SYBIL castrejon. Leukocytosis -WBC count 15.5. No signs of infection. Leukocytosis believed to be reactive secondary to recent surgical procedure. No need for further intervention at this time. Hypothyroidism -Continue levothyroxine 25 mcg daily. Depression -Continue Prozac 80 mg nightly. Chronic conditions: History of obstructive sleep apnea but states does not and will not use CPAP History of TIA History of migraine headaches Fibromyalgia Chronic pain -Continue home medication regimen. Data reviewed: Postoperative labs reviewed. CBC showing leukocytosis with WBC count of 15.5 otherwise normal findings. BMP revealing mild hyponatremia with sodium of 133 and hypocarbia with bicarb of 21 otherwise normal findings. Vital signs reviewed and stable. Blood pressure 118/79, heart rate 58, respiratory rate 17, temp 97.5 F, and SpO2 of 95% on room air. Patient medically optimized for discharge once cleared by primary admitting orthospine surgical team. Thank you for allowing us to participate in the care of this pleasant patient. Do not hesitate to contact us with questions. Someone can be reached from the [facility] hospitalist group all hours of the day at [phone] or via [employer]. Patient was seen independently by Nurse Practitioner. This document was prepared using [employer] dictation software. Please allow for errors in assembly line driver while rare they do occur. Gilbert Garcia NP rendered care for this patient independently, reviewed the findings and plan as documented in the note above and agree with plan. I did not physically speak with or examine the patient on this date. Objective - Vital Signs Vital signs: Vital Signs Temp 97.5 F L 01/26/24 06:55 Pulse 58 L 01/26/24 06:55 Resp 17 01/26/24 06:55 BP 118/79 01/26/24 06:55 Pulse Ox 95 01/26/24 06:55 FiO2 Intake & Output 01/25/24 01/26/24 01/26/24 18:59 06:59 18:59 Intake Total 540 Balance 540 Intake: Oral 540 Other: Voiding Method Toilet Toilet # Voids 2 3 - Labs CBC & Chem 7: 01/25/24 03:52 01/25/24 03:52
== END 2024-01-26 11:02 | disposition home health service (06) ==
LOC: OR 09:01 → 4SSUR 14:48 → OR 01-26 11:02
PROVIDERS: ATTEND Orthopaedic Surgery
DX: M47.22 Other spondylosis with radiculopathy, cervical region (principal); M48.02 Spinal stenosis, cervical region; M43.12 Spondylolisthesis, cervical region; M50.123 Cervical disc disorder at C6-C7 level with radiculopathy; K21.9 Gastro-esophageal reflux disease without esophagitis; G95.89 Other specified diseases of spinal cord; M25.78 Osteophyte, vertebrae; G89.29 Other chronic pain; M79.7 Fibromyalgia; M81.0 Age-related osteoporosis without current pathological fracture; G89.18 Other acute postprocedural pain; G47.33 Obstructive sleep apnea (adult) (pediatric); F32.A Depression, unspecified; E66.9 Obesity, unspecified; E03.9 Hypothyroidism, unspecified; F17.210 Nicotine dependence, cigarettes, uncomplicated; Z79.82 Long term (current) use of aspirin; Z79.890 Hormone replacement therapy; Z68.25 Body mass index [BMI] 25.0-25.9, adult; Z79.899 Other long term (current) drug therapy; Z86.73 Personal history of transient ischemic attack (TIA), and cerebral infarction without residual deficits; Z88.1 Allergy status to other antibiotic agents; Z88.5 Allergy status to narcotic agent; Z88.6 Allergy status to analgesic agent; Z90.49 Acquired absence of other specified parts of digestive tract; Z90.710 Acquired absence of both cervix and uterus; Z98.890 Other specified postprocedural states
CPT/HCPCS: 22551; 22552; 22845; 22853; 20930; 97161; 80048; 85025; 72040; 72125; C1713; J2250; J0780; J1100; J0690 ×2; J2405; J3010 ×2; J1171; J0131; J1885 ×3

== ENCOUNTER → 2024-08-29 | Outpatient (CLI) | payer MEDICAID ==
[2024-08-29 15:31] LABS: Basophils # (A) 0.05 X 10*3/uL (0.00-0.10); Basophils % (A) 0.8 %; Eosinophils # (A) 0.29 X 10*3/uL (0.04-0.35); Eosinophils % (A) 4.4 %; HCT 45.8 % (37.2-46.3); HGB 14.8 g/dL (12.0-15.0); Immature Grans, Automated 0.30 %; Lymphocytes # (A) 2.06 X 10*3/uL (0.90-5.00); Lymphocytes % (A) 31.2 %; MCH 26.2 pg (27.0-32.0); MCHC 32.3 g/dL (32.0-37.0); MCV 81.1 FL (80.0-97.0); Monocytes # (A) 0.60 X 10*3/uL (0.20-1.00); Monocytes % (A) 9.1 %; NRBC Per 100 WBC 0 X 10*3/uL (0.00-0.01); Neutrophils # (A) 3.58 X 10*3/uL (1.80-7.70); Neutrophils % (A) 54.2 %; Platelet Count 320 X 10*3/uL (140-440); RBC 5.65 X 10*6/uL (4.10-5.20); RDW 14.1 % (11.5-14.5); WBC 6.60 X 10*3/uL (4.50-10.00)
[2024-08-29 15:58] LABS: ALT 23 U/L (8-44); AST 23 U/L (13-35); Albumin 4.2 g/dL (3.8-4.9); Albumin/Globulin Ratio 2.47 Ratio (1.60-3.17); Alkaline Phosphatase 84 U/L (41-126); Anion Gap 12.90 mmol/L (4.00-12.00); BUN/Creat Ratio 11.64 Ratio (12.00-20.00); Blood Urea Nitrogen 12.8 mg/dL (9.0-27.0); Calcium 9.4 mg/dL (8.7-10.3); Carbon Dioxide 24.1 mmol/L (21.6-31.8); Chloride 103 mmol/L (96-109); Globulin 1.7 g/dL (1.6-3.3); Glucose 82 mg/dL (70-110); Potassium 4.8 mmol/L (3.5-5.5); Sodium 140 mmol/L (135-145); Total Protein 5.9 g/dL (6.2-8.2)
== END | disposition home or self-care (01) ==
LOC: LABWHC1 09:26
PROVIDERS: ATTEND Internal Medicine
DX: G47.33 Obstructive sleep apnea (adult) (pediatric) (principal); E66.9 Obesity, unspecified; E03.9 Hypothyroidism, unspecified
CPT/HCPCS: 36415; 80053; 83036; 84443; 85025